=== PATIENT | female | born 1960 | race Caucasian/White ===

== ENCOUNTER → 2020-07-08 13:29 | Outpatient (BNVA) | payer MEDICAID, SELFPAY | PROVIDERS: PCP Internal Medicine; Visit Provider Nurse Practitioner ==

== ENCOUNTER 2020-07-17 09:14 | Emergency (ER) | payer MEDICAID, SELFPAY ==
--- NOTE | ~2020-07-17 | XR_ITS ---
EXAMINATION: XR CHEST CLINICAL INFORMATION: Chest pain. COMPARISON: None TECHNIQUE: Frontal view of the chest was obtained. FINDINGS: The lungs are well-expanded and clear of acute pneumonic process. The heart size and pulmonary vascularity is normal. No gross bony abnormality seen. XR/XR chest 1V IMPRESSION: Unremarkable chest exam.
--- NOTE | 2020-07-17 09:21 | ECG_ITS ---
Test Reason : CHEST PAIN Blood Pressure : / mmHG Vent. Rate : 079 BPM Atrial Rate : 079 BPM P-R Int : 180 ms QRS Dur : 114 ms QT Int : 348 ms P-R-T Axes : 048 -36 065 degrees QTc Int : 399 ms Normal sinus rhythm Left axis deviation Incomplete left bundle branch block Nonspecific T wave abnormality Abnormal ECG When compared with ECG of 21-FEB-2017 11:54, Nonspecific T wave abnormality no longer evident in Inferior leads Nonspecific T wave abnormality no longer evident in Anterior leads Referred By: Nancy Maldonado Electronically Signed By:MINO PALAFOX
--- NOTE | 2020-07-17 09:23 | ED.CHESTPAIN ---
HPI - Chest Pain General Chief Complaint: Chest Pain Stated Complaint: CHEST PAIN COVID POS Time Seen by Provider: 07/17/20 09:20 Source: patient Mode of arrival: ambulatory Limitations: no limitations History of Present Illness HPI narrative: 59 yo female with history of GERD, asthma, HTN, HLD, arthritis constipation and COVID-19 in May 2020 presents with ongoing chest pain and shortness of breath since her diagnosis. She states the pain has been in her entire chest and has been constant. It is non-radiating and worse with palpation. She has been taking Tylenol with some temporary relief. She reports ongoing dry cough since May. She also reports SOB and ZACARIAS since May. She has had an O2 monitor at home and her saturation has not gone lower than 96%. She has not had any recent fevers, chills. No N/V/D or abdominal pain. MD complaint: chest pain Pertinent past history: asthma Onset (ago): week(s) (6) Timing of current episode: constant Prior episodes: Yes Onset: during rest and during exertion Pain location: substernal, left chest and right chest Pain radiation: none Severity: moderate Quality: tightness Relieving factors: medication-other Exacerbating factors: exertion Context: recent illness Associated symptoms: cough Treatment prior to arrival: none Risk Factors Coronary artery disease risk factors: hyperlipidemia and hypertension Thoracic aortic dissection risk factors: none Related Data On Oral Contraceptives: No Home Medications Medication Instructions Recorded Confirmed acetaminophen 650 mg 650 mg PO Q12H 07/08/20 tablet,extended release docusate sodium 100 mg capsule 100 mg PO DAILY 07/08/20 Previous Rx's Medication Instructions Recorded lisinopril 2.5 mg tablet 2.5 mg PO DAILY #30 tab 03/11/20 cholecalciferol (vitamin D3) 50 50 mcg PO DAILY #30 tab 04/13/20 mcg (2,000 unit) tablet dexlansoprazole 60 mg 60 mg PO DAILY 30 Days #30 cap 07/08/20 capsule,biphase delayed release albuterol sulfate 1 inh INHALATION QID PRN #6.7 g 07/17/20 benzonatate [Tessalon Perles] 100 mg PO TID PRN #20 cap 07/17/20 Allergies Allergy/AdvReac Type Severity Reaction Status Date / Time Penicillins [PENICILLINS] Allergy Intermediate RASH Verified 07/08/20 13:32 Hydrocodone-Acetaminophen Allergy Unknown tachycardia Uncoded 11/14/18 00:00 narcotics AdvReac Mild heart Uncoded 07/08/20 13:32 palpitations Review of Systems Review of Systems: Constitutional: No Fever, No Chills ENT/Mouth: No sore throat, No Rhinorrhea, No Swallowing Difficulty Cardiovascular: + Chest Pain, + SOB, No Orthopnea, No Edema Respiratory: + Cough, No Sputum, No Wheezing, + dyspnea Gastrointestinal: No Nausea, No Vomiting, No Diarrhea, No abdominal Pain Genitourinary: No Dysuria, No Urinary Frequency, No Hematuria Musculoskeletal: + joint pain (chronic knees), No Myalgias Skin: No Skin Lesions, No rash Neuro: No Weakness, No Numbness, No Dizziness, No Headache Psych: No Anxiety/Panic, No Depression Heme/Lymph: No Bruising, No Lymphadenopathy Endocrine: No Polyuria, No Polydipsia PMF Past Medical History Attestation statement: The following information was validated with the patient. Medical History Arthritis High cholesterol HTN (hypertension) Surgical History (Updated 07/08/20 @ 13:40 by JEANA Lees) Hx of colonoscopy (~2019) Family History Family History (Updated 07/08/20 @ 13:40 by JEANA Lees) Mother HTN (hypertension) Diabetes Social History Social History (Updated 07/08/20 @ 13:41 by JEANA Lees) Alcohol intake: current Alcohol intake frequency: does not drink Smoking Status: Never smoker Advance Directives: No Advance Directives Information Provided: No Physical Exam Vital Signs: Vital Signs: Last Vital Signs Temp 98.1 F 07/17/20 09:26 Pulse 76 07/17/20 09:26 BP 130/53 L 07/17/20 09:26 Pulse Ox 100 07/17/20 09:26 Body Mass Index 24.2 Appearance: Alert. Oriented X3. No acute distress. Eyes: Pupils equal, round and reactive to light. ENT: Pharynx normal. Neck: Normal inspection. Neck supple. CVS: Normal heart rate and rhythm. Pulses normal. Anterior chest wall tender throughout. Respiratory: No respiratory distress. Breath sounds normal. Abdomen: Soft and nontender. +BS x4 Skin: Skin warm and dry. Normal skin color. Normal skin turgor. No rashes. Extremities: No lower extremity edema. Negative Taj's sign. Neuro: Oriented X 3. No motor deficit. No sensory deficit. Course Course Course Narrative: 59 y/o female presenting with ongoing chest pain and SOB since she was diagnosed with COVID over 6 weeks ago. Her exam is reassuring and her VS are normal. Will need to r/o ACS and PE in the setting of recent COVID. Will get EKG, CXR, labs including troponin and ddimer. Reevaluation(s) Reevaluation #1: Work up is negative. Low suspicion for life threatening causes of her pain and SOB. DDIMER and troponin negative. VS are stable and lungs are clear. Chest is tender consistent with muscular pain. It is possible that her symptoms are side effects of COVID-19. It is recommended she follow up with her doctor for further management. MDM - Chest Pain Differential Diagnosis Differential diagnosis: Likely pneumothorax, stable angina, unstable angina pectoris, atypical chest pain, st elevation myocardial infarction, costochondritis, chest pain and biliary colic Medical Records Data Attestation: I reviewed the patient's medical records. Lab Data Attestation: I reviewed the patient's lab results. Result diagrams: 07/17/20 09:42 07/17/20 09:42 Labs: Lab Results 07/17/20 07/17/20 07/17/20 Range/Units 09:42 09:42 09:42 WBC 4.8 (4.8-10.8) X10*3/uL RBC 4.34 (4.20-5.50) X10*6/uL Hgb 11.7 L (12.0-16.0) g/dl Hct 37.9 (37-47) % MCV 87.3 (80-98) fL MCH 27.0 (27.0-33.0) pg MCHC 30.9 L (31.0-35.0) g/dl RDW 14.5 (11.0-16.0) % Plt Count 187 (160-400) X10*3/uL MPV 12.6 H (9.4-12.3) fL Immature Gran % (Auto) 0.2 (0.0-0.4) % Neut % (Auto) 52.7 (45-73) % Lymph % (Auto) 34.1 (20-40) % [place] % (Auto) 10.7 (2-11) % Eos % (Auto) 2.1 (0-4) % Baso % (Auto) 0.2 (0-2) % Lymph # (Auto) 1.6 (1.2-4.9) X10*3/uL [place] # (Auto) 0.5 (0.1-1.2) X10*3/uL Eos # (Auto) 0.1 (0.0-0.4) X10*3/uL Baso # (Auto) 0.0 (0.0-0.2) X10*3/uL Abs Immat Gran (auto) 0.01 (0.00-0.03) X10*3/uL Absolute Neuts (auto) 2.5 (2.0-8.3) X10*3/uL Absolute Nucleated RBC 0.000 (0.0-0.012) X10*3/uL Nucleated RBC % (auto) 0.0 (0.0-0.2) /100WBC PT 11.9 (10.8-13.0) SEC INR 1.0 (0.9-1.1) APTT 29.4 (24.1-38.0) SEC D-Dimer < 200 NG/ML Sodium 142 (135-145) mmol/L Potassium 3.9 (3.3-5.1) mmol/L Chloride 103 (96-108) mmol/L Carbon Dioxide 31 H (22-29) mmol/L Anion Gap 12 (12-20) BUN 25 H (9-16) mg/dL Creatinine 1.06 (0.5-1.4) mg/dL Estim Creat Clear Calc 52.8 Estimated GFR 53 Random Glucose 118 H (60-115) mg/dL Calcium 9.5 (8.4-10.2) mg/dL Magnesium 2.1 (1.6-2.6) mg/dL Total Bilirubin 0.5 (0.0-1.0) mg/dL Direct Bilirubin 0.2 (0.0-0.5) mg/dL AST 14 (5-31) U/L ALT 19 (0-31) U/L Alkaline Phosphatase 53 (39-117) U/L Troponin I High Sens (<3.5-17.0) ng/L C-Reactive Protein 0.08 (< or = 0.50) mg/dL B-Natriuretic Peptide (<100) pg/mL Total Protein 7.5 (6.5-8.0) g/dL Albumin 4.3 (3.5-5.0) g/dL Procalcitonin ng/mL Urine Color Urine Appearance Urine pH (5.0-8.0) Ur Specific [place] (1.005-1.025) Urine Protein (NEG-TRACE) MG/DL Urine Glucose (UA) (NEG) MG/DL Urine Ketones (NEG) MG/DL Urine Blood (NEG) Urine Nitrite (NEG) Ur Leukocyte Esterase (NEG) 07/17/20 07/17/20 07/17/20 Range/Units 09:42 09:42 10:29 WBC (4.8-10.8) X10*3/uL RBC (4.20-5.50) X10*6/uL Hgb (12.0-16.0) g/dl Hct (37-47) % MCV (80-98) fL MCH (27.0-33.0) pg MCHC (31.0-35.0) g/dl RDW (11.0-16.0) % Plt Count (160-400) X10*3/uL MPV (9.4-12.3) fL Immature Gran % (Auto) (0.0-0.4) % Neut % (Auto) (45-73) % Lymph % (Auto) (20-40) % [place] % (Auto) (2-11) % Eos % (Auto) (0-4) % Baso % (Auto) (0-2) % Lymph # (Auto) (1.2-4.9) X10*3/uL [place] # (Auto) (0.1-1.2) X10*3/uL Eos # (Auto) (0.0-0.4) X10*3/uL Baso # (Auto) (0.0-0.2) X10*3/uL Abs Immat Gran (auto) (0.00-0.03) X10*3/uL Absolute Neuts (auto) (2.0-8.3) X10*3/uL Absolute Nucleated RBC (0.0-0.012) X10*3/uL Nucleated RBC % (auto) (0.0-0.2) /100WBC PT (10.8-13.0) SEC INR (0.9-1.1) APTT (24.1-38.0) SEC D-Dimer NG/ML Sodium (135-145) mmol/L Potassium (3.3-5.1) mmol/L Chloride (96-108) mmol/L Carbon Dioxide (22-29) mmol/L Anion Gap (12-20) BUN (9-16) mg/dL Creatinine (0.5-1.4) mg/dL Estim Creat Clear Calc Estimated GFR Random Glucose (60-115) mg/dL Calcium (8.4-10.2) mg/dL Magnesium (1.6-2.6) mg/dL Total Bilirubin (0.0-1.0) mg/dL Direct Bilirubin (0.0-0.5) mg/dL AST (5-31) U/L ALT (0-31) U/L Alkaline Phosphatase (39-117) U/L Troponin I High Sens < 3.5 (<3.5-17.0) ng/L C-Reactive Protein (< or = 0.50) mg/dL B-Natriuretic Peptide < 10 (<100) pg/mL Total Protein (6.5-8.0) g/dL Albumin (3.5-5.0) g/dL Procalcitonin < 0.02 ng/mL Urine Color YELLOW Urine Appearance CLEAR Urine pH 6.0 (5.0-8.0) Ur Specific [place] 1.025 (1.005-1.025) Urine Protein NEG (NEG-TRACE) MG/DL Urine Glucose (UA) NEG (NEG) MG/DL Urine Ketones NEG (NEG) MG/DL Urine Blood NEG (NEG) Urine Nitrite NEG (NEG) Ur Leukocyte Esterase NEG (NEG) ECG Data ECG #1: Attestation: I personally reviewed and interpreted this ECG as follows: ECG interpretation date: 07/17/20 ECG interpretation time: 09:45 Interpretation: normal sinus rhythm, HR 79 bpm, normal SC interval, normal QTc, nonspecific T wave abnormality, no ST segment elevations or depression,s Scores Heart Score History: -0- slightly suspicious ECG: -0- normal Age: -1- >45 - <65 Risk factory: -1- 1 or 2 risk factors Troponin: -0- < or = normal limit Score: 2 Risk: 1.7% Critical Care Time Critical Care Time Critical Care Time: No Discharge Plan Discharge Clinical Impression: Atypical chest pain Patient Disposition: Home, Self-Care Instructions: Chest Pain (ED), Costochondritis (ED) Additional Instructions: Your workup today was negative. Life threatening causes of chest pain and shortness of breath have been ruled out. It is likely that your symptoms are custodial effects of COVID-19. Take the prescribed medication as needed for cough. Recommend over the counter cough syrup as well. Recommend follow up with your doctor. Recommend continuing Tylenol as needed for discomfort. You can add an anti-inflammatory such as Ibuprofen or Advil for pain. If your symptoms worsen come back to the ER for further evaluation. Prescriptions: New benzonatate [Tessalon Perles] 100 mg capsule 100 mg PO TID PRN (Reason: cough) Qty: 20 RF: 0 albuterol sulfate 90 mcg/actuation HFA aerosol inhaler 1 inh inhalation QID PRN (Reason: shortness of breath or wheezing) Qty: 6.7 RF: 0 No Action lisinopril 2.5 mg tablet 2.5 mg PO DAILY Qty: 30 RF: 3 cholecalciferol (vitamin D3) 50 mcg (2,000 unit) tablet 50 mcg PO DAILY Qty: 30 RF: 11 Dexilant 60 mg capsule,biphase delayed releas 60 mg PO DAILY 30 Days Qty: 30 RF: 6
[2020-07-17 09:26] VITALS: BP 130/53; PULSE 76; TEMP 36.7; O2SAT 100; BMI 24.2
[2020-07-17 09:48] LABS: MANUAL DIFF FLAG NO
[2020-07-17 09:52] LABS: Basophils Percent Auto 0.2 % (0-2); Eosinophils Absolute Auto 0.1 X10*3/uL (0.0-0.4); Eosinophils Percent Auto 2.1 % (0-4); Hematocrit 37.9 % (37-47); Hemoglobin 11.7 g/dl (12.0-16.0); Imm Gran Abs Auto 0.01 X10*3/uL (0.00-0.03); Imm Gran Pct Auto 0.2 % (0.0-0.4); Lymphocytes Absolute Auto 1.6 X10*3/uL (1.2-4.9); Lymphocytes Percent Auto 34.1 % (20-40); Mean Corpuscular HGB Conc 30.9 g/dl (31.0-35.0); Mean Corpuscular Volume 87.3 fL (80-98); Mean Platelet Volume 12.6 fL (9.4-12.3); Monocytes Absolute Auto 0.5 X10*3/uL (0.1-1.2); Monocytes Percent Auto 10.7 % (2-11); Neutrophils Absolute Auto 2.5 X10*3/uL (2.0-8.3); Neutrophils Percent Auto 52.7 % (45-73); Platelet Count 187 X10*3/uL (160-400); Red Blood Count 4.34 X10*6/uL (4.20-5.50); Red Cell Distribution Width 14.5 % (11.0-16.0); White Blood Count 4.8 X10*3/uL (4.8-10.8)
[2020-07-17 09:58] LABS: Prothrombin Time 11.9 SEC (10.8-13.0)
[2020-07-17 10:00] LABS: Partial Thromboplastin Time 29.4 SEC (24.1-38.0)
[2020-07-17 10:11] LABS: D Dimer < 200 NG/ML
[2020-07-17 10:19] LABS: Alanine Aminotransferase 19 U/L (0-31); Albumin Level 4.3 g/dL (3.5-5.0); Alkaline Phosphatase 53 U/L (39-117); Anion Gap 12 (12-20); Aspartate Amino Transferase 14 U/L (5-31); Bilirubin Direct 0.2 mg/dL (0.0-0.5); Bilirubin Total 0.5 mg/dL (0.0-1.0); Blood Urea Nitrogen 25 mg/dL (9-16); C Reactive Protein 0.08 mg/dL (< or = 0.50); Calcium 9.5 mg/dL (8.4-10.2); Carbon Dioxide 31 mmol/L (22-29); Chloride 103 mmol/L (96-108); Creatinine Clr Calc Pharmacy 52.8; Estimated Glomerular Filt Rate 53; Glucose Random 118 mg/dL (60-115); Magnesium 2.1 mg/dL (1.6-2.6); Potassium 3.9 mmol/L (3.3-5.1); Sodium 142 mmol/L (135-145); Total Protein 7.5 g/dL (6.5-8.0)
[2020-07-17 10:22] LABS: B Type Natriuretic Peptide < 10 pg/mL (<100); Troponin-I High Sensitivity < 3.5 ng/L (<3.5-17.0)
[2020-07-17 10:36] LABS: Procalcitonin < 0.02 ng/mL
[2020-07-17 10:42] LABS: Glucose Urine UA NEG (NEG); Leukocyte Esterase Urine NEG (NEG); Nitrite Urine NEG (NEG); Specific Gravity - Urine 1.025 (1.005-1.025); Urine Blood NEG (NEG); Urine Ketones NEG (NEG); Urine Protein NEG (NEG-TRACE)
[2020-07-17 10:43] LABS: Appearance Urine CLEAR; Color Urine YELLOW
== END 2020-07-17 10:53 | disposition home or self-care (01) ==
PROVIDERS: Physician Assistant; Emergency Provider Emergency Medicine; PCP Internal Medicine
DX: R07.89 Other chest pain (principal); I10 Essential (primary) hypertension; E78.5 Hyperlipidemia, unspecified; K21.9 Gastro-esophageal reflux disease without esophagitis; Z86.16 Personal history of COVID-19
CPT/HCPCS: 36415; 71045; 80048; 80076; 81003; 83735; 83880; 84145; 84484; 85025; 85379; 85610; 85730; 86140; 93005; 99283

== ENCOUNTER → 2020-08-05 12:22 | Outpatient (BNVA) | payer MEDICAID, SELFPAY | PROVIDERS: PCP Internal Medicine; Visit Provider Nurse Practitioner ==

== ENCOUNTER 2020-10-22 09:09 | Outpatient (REF) | payer MEDICAID, SELFPAY ==
--- NOTE | ~2020-10-22 | US_ITS ---
EXAMINATION: PELVIC ULTRASOUND CLINICAL INFORMATION: Right lower quadrant pain. Post hysterectomy. COMPARISON: Previous CT of the abdomen and pelvis November 2015 and previous pelvic ultrasound most recent April 2015 TECHNIQUE: Transabdominal pelvic ultrasound was performed. FINDINGS: The uterus has been removed. The ovaries are not identified. No pelvic mass or ascites is seen. US/US pelvic and transvaginal IMPRESSION: Post hysterectomy. Ovaries not seen. No pelvic mass or ascites is seen.
--- NOTE | ~2020-10-22 | US_ITS ---
EXAMINATION: US ABDOMEN COMPLETE CLINICAL INFORMATION: Right lower quadrant pain. COMPARISON: CT abdomen and pelvis 12/10/2015. X-ray abdomen KUB 09/09/2013. Renal ultrasound 06/14/2013. TECHNIQUE: Real-time imaging of the abdominal viscera. FINDINGS: PANCREAS: Normal. ABDOMINAL AORTA: The proximal, mid, and distal segments are normal in caliber. INFERIOR VENA CAVA: Visualized portions are normal. LIVER: The liver is normal in size. The liver contour is normal. Parenchymal echogenicity is normal. No focal hepatic lesion. There is no intrahepatic biliary duct dilatation seen. GALLBLADDER: Surgically absent. COMMON BILE DUCT: Normal in caliber measuring 0.6 cm in diameter. RIGHT KIDNEY: No hydronephrosis. No renal calculi or focal parenchymal lesions. The kidney measures 10.9 cm in maximum dimension. LEFT KIDNEY: No hydronephrosis. No renal calculi or focal parenchymal lesions. The kidney measures 10.3 cm in maximum dimension. SPLEEN: Normal. The spleen measures 7.9 cm in maximum dimension. FREE FLUID: None. US/US abdomen complete IMPRESSION: No significant abnormality is seen
== END 2020-10-22 09:10 | disposition home or self-care (01) ==
LOC: HO.US 09:09
PROVIDERS: Visit Provider Emergency Medicine
DX: K59.04 Chronic idiopathic constipation (principal); R10.31 Right lower quadrant pain
CPT/HCPCS: 76700; 76830; 76856

== ENCOUNTER 2020-10-30 10:49 | Emergency (ER) | payer MEDICAID, SELFPAY ==
[2020-10-30] VITALS (7 sets, daily range): BP systolic 116–138; BP diastolic 48–66; PULSE 54–69; RESP 13–19; TEMP 36.7–37; O2SAT 98–100; BMI 23.5
--- NOTE | ~2020-10-30 | XR_ITS ---
EXAMINATION: XR CHEST CLINICAL INFORMATION: Chest pain COMPARISON: Chest 07/17/2020 TECHNIQUE: Frontal view of the chest was obtained. FINDINGS: No significant abnormality is noted involving the heart, lungs, mediastinum, bony thorax or soft tissues. XR/XR chest 1V IMPRESSION: Unremarkable chest exam.
--- NOTE | 2020-10-30 11:25 | ECG_ITS ---
Test Reason : CHEST PAIN Blood Pressure : / mmHG Vent. Rate : 057 BPM Atrial Rate : 057 BPM P-R Int : 192 ms QRS Dur : 106 ms QT Int : 412 ms P-R-T Axes : 015 -36 -16 degrees QTc Int : 401 ms Sinus bradycardia Left axis deviation Incomplete left bundle branch block Nonspecific T wave abnormality Abnormal ECG When compared with ECG of 17-JUL-2020 09:25, Nonspecific T wave abnormality now evident in Inferior leads Nonspecific T wave abnormality now evident in Anterior leads Referred By: Carmen Moreno Electronically Signed By:MINO PALAFOX
--- NOTE | 2020-10-30 11:27 | ED.CHESTPAIN ---
HPI - Chest Pain General Chief Complaint: Chest Pain Stated Complaint: leg pain, chest pain, asthma Time Seen by Provider: 10/30/20 11:03 Source: patient Mode of arrival: ambulatory Limitations: no limitations History of Present Illness HPI narrative: Patient comes emergency room complaining frequent asthma exacerbations, chest pain for 2 days. Patient states that she has been taking multiple nebulization treatments at home for asthma. At this time, patient states she is not short of breath. Patient states that she has a constant achy substernal chest pain that started 2 days ago. Patient states it is there all the time, unchanged. Patient denies diaphoresis, states that sometimes she feels that she walks unsteady, but this time she feels normal. MD complaint: chest pain Related Data Home Medications Medication Instructions Recorded Confirmed acetaminophen 650 mg 650 mg PO Q12H 07/08/20 tablet,extended release guaifenesin 100 mg/5 mL oral liquid 200 mg PO Q4H PRN 08/05/20 Previous Rx's Medication Instructions Recorded lisinopril 2.5 mg tablet 2.5 mg PO DAILY #30 tab 03/11/20 cholecalciferol (vitamin D3) 50 50 mcg PO DAILY #30 tab 04/13/20 mcg (2,000 unit) tablet dexlansoprazole 60 mg 60 mg PO DAILY 30 Days #30 cap 07/08/20 capsule,biphase delayed release albuterol sulfate 1 inh INHALATION QID PRN #6.7 g 07/17/20 benzonatate [Tessalon Perles] 100 mg PO TID PRN #20 cap 07/17/20 docusate sodium 100 mg capsule 100 mg PO DAILY 30 Days #30 cap 08/05/20 Allergies Allergy/AdvReac Type Severity Reaction Status Date / Time Penicillins [PENICILLINS] Allergy Intermediate RASH Verified 08/05/20 12:23 Hydrocodone-Acetaminophen Allergy Unknown tachycardia Uncoded 11/14/18 00:00 narcotics AdvReac Mild heart Uncoded 07/08/20 13:32 palpitations Review of Systems Review of Systems: Constitutional : No Weight loss, No Fever, No Chills, No Night Sweats, No Fatigue, No Malaise ENT/Mouth : No Hearing loss, No Ear Pain, No Nasal Congestion, No Sinus Pain, No Hoarseness, No sore throat, No Rhinorrhea, No Swallowing Difficulty Eyes: No Eye Pain, No Swelling, No Redness, No Foreign Body, No Discharge, No Vision Changes Cardiovascular : Complaining of achy substernal chest pain for 2 days, constant. No Dyspnea on Exertion, No Orthopnea, No Edema, No Palpitations Respiratory : No Cough, No Sputum, intermittent Wheezing the response to albuterol treatments, No Smoke Exposure, No Dyspnea Gastrointestinal : No Nausea, No Vomiting, No Diarrhea, No Constipation, No abdominal Pain, No Hematochezia, No Melena Genitourinary : no irregular bleeding, No Dysuria, No Urinary Frequency, No Hematuria, No Urinary Incontinence, No Urgency, No Flank Pain, No Urinary Flow Changes, No Hesitancy Musculoskeletal : Chronic bilateral knee pain, No Myalgias, No Joint Swelling Skin : No Skin Lesions, No rash Neuro : No Weakness, No Numbness, No Paresthesias, No Loss of Consciousness, No Dizziness, No Headache Psych : No Anxiety/Panic, No Depression, No SI/HI/AH/VH, No Social Issues, Heme/Lymph: No Bruising, No Bleeding,No Lymphadenopathy Endocrine : No Polyuria, No Polydipsia, No Temperature Intolerance [facility] Past Medical History Medical History Arthritis High cholesterol HTN (hypertension) Surgical History Hx of colonoscopy (~2019) Family History Family History (Updated 07/08/20 @ 13:40 by JEANA Lees) Mother HTN (hypertension) Diabetes Social History Social History (Updated 08/05/20 @ 12:28 by JEANA Lees) Alcohol intake: current Alcohol intake frequency: does not drink Advance Directives: No Advance Directives Information Provided: No Patient : No Physical Exam Vital Signs: Vital Signs: Last Vital Signs Temp 98.0 F 10/30/20 14:59 Pulse 54 10/30/20 14:59 Resp 18 10/30/20 14:59 BP 134/48 L 10/30/20 14:59 Pulse Ox 100 10/30/20 14:59 Body Mass Index 23.5 Appearance: Alert. Oriented X3. No acute distress. Eyes: Pupils equal, round and reactive to light. ENT: Pharynx normal. Neck: Normal inspection. Neck supple. No lymph nodes noted. No crepitus CVS: Normal heart rate and rhythm. Pulses normal. Normal S1 and S2 Respiratory: No respiratory distress. Breath sounds normal. No Wheezing. No rales Abdomen: Soft and nontender. No rigidity. No distention. good BS x4 Skin: Skin warm and dry. Normal skin color. Normal skin turgor. Extremities: No lower extremity edema. No rash Neuro: Oriented X 3. No motor deficit. No sensory deficit. Moving all extermities. No slurred speech. Course Course Course Narrative: I discussed the results with the patient, her troponin remained stable, did not increase from troponin 1. Repeated EKG 2. Shows no changes. Patient states that this time she has no chest pain. Patient will follow-up with her primary care physician. MDM - Chest Pain Lab Data Result diagrams: 10/30/20 11:46 10/30/20 11:46 Labs: Lab Results 10/30/20 10/30/20 10/30/20 Range/Units 11:46 11:46 11:46 WBC 4.0 L (4.8-10.8) X10*3/uL RBC 4.06 L (4.20-5.50) X10*6/uL Hgb 11.2 L (12.0-16.0) g/dl Hct 35.9 L (37-47) % MCV 88.4 (80-98) fL MCH 27.6 (27.0-33.0) pg MCHC 31.2 (31.0-35.0) g/dl RDW 13.5 (11.0-16.0) % Plt Count 166 (160-400) X10*3/uL MPV 12.8 H (9.4-12.3) fL Immature Gran % (Auto) 0.0 (0.0-0.4) % Neut % (Auto) 62.4 (45-73) % Lymph % (Auto) 28.5 (20-40) % [place] % (Auto) 6.9 (2-11) % Eos % (Auto) 2.0 (0-4) % Baso % (Auto) 0.2 (0-2) % Lymph # (Auto) 1.2 (1.2-4.9) X10*3/uL [place] # (Auto) 0.3 (0.1-1.2) X10*3/uL Eos # (Auto) 0.1 (0.0-0.4) X10*3/uL Baso # (Auto) 0.0 (0.0-0.2) X10*3/uL Abs Immat Gran (auto) 0.00 (0.00-0.03) X10*3/uL Absolute Neuts (auto) 2.5 (2.0-8.3) X10*3/uL Absolute Nucleated RBC 0.000 (0.0-0.012) X10*3/uL Nucleated RBC % (auto) 0.0 (0.0-0.2) /100WBC Sodium 142 (135-145) mmol/L Potassium 4.3 (3.3-5.1) mmol/L Chloride 107 (96-108) mmol/L Carbon Dioxide 29 (22-29) mmol/L Anion Gap 10 L (12-20) BUN 15 (9-16) mg/dL Creatinine 0.79 (0.5-1.4) mg/dL Estim Creat Clear Calc 72.7 Estimated GFR > 60 Random Glucose 101 (60-115) mg/dL Calcium 9.4 (8.4-10.2) mg/dL Total Bilirubin 0.4 (0.0-1.0) mg/dL Direct Bilirubin 0.2 (0.0-0.5) mg/dL AST 19 (5-31) U/L ALT 19 (0-31) U/L Alkaline Phosphatase 49 (39-117) U/L Troponin I High Sens 6.2 (<3.5-17.0) ng/L B-Natriuretic Peptide 59 (<100) pg/mL Total Protein 6.9 (6.5-8.0) g/dL Albumin 4.0 (3.5-5.0) g/dL Urine Color Urine Appearance Urine pH (5.0-8.0) Ur Specific [place] (1.005-1.025) Urine Protein (NEG-TRACE) MG/DL Urine Glucose (UA) (NEG) MG/DL Urine Ketones (NEG) MG/DL Urine Blood (NEG) Urine Nitrite (NEG) Ur Leukocyte Esterase (NEG) 10/30/20 10/30/20 Range/Units 14:54 14:54 WBC (4.8-10.8) X10*3/uL RBC (4.20-5.50) X10*6/uL Hgb (12.0-16.0) g/dl Hct (37-47) % MCV (80-98) fL MCH (27.0-33.0) pg MCHC (31.0-35.0) g/dl RDW (11.0-16.0) % Plt Count (160-400) X10*3/uL MPV (9.4-12.3) fL Immature Gran % (Auto) (0.0-0.4) % Neut % (Auto) (45-73) % Lymph % (Auto) (20-40) % [place] % (Auto) (2-11) % Eos % (Auto) (0-4) % Baso % (Auto) (0-2) % Lymph # (Auto) (1.2-4.9) X10*3/uL [place] # (Auto) (0.1-1.2) X10*3/uL Eos # (Auto) (0.0-0.4) X10*3/uL Baso # (Auto) (0.0-0.2) X10*3/uL Abs Immat Gran (auto) (0.00-0.03) X10*3/uL Absolute Neuts (auto) (2.0-8.3) X10*3/uL Absolute Nucleated RBC (0.0-0.012) X10*3/uL Nucleated RBC % (auto) (0.0-0.2) /100WBC Sodium (135-145) mmol/L Potassium (3.3-5.1) mmol/L Chloride (96-108) mmol/L Carbon Dioxide (22-29) mmol/L Anion Gap (12-20) BUN (9-16) mg/dL Creatinine (0.5-1.4) mg/dL Estim Creat Clear Calc Estimated GFR Random Glucose (60-115) mg/dL Calcium (8.4-10.2) mg/dL Total Bilirubin (0.0-1.0) mg/dL Direct Bilirubin (0.0-0.5) mg/dL AST (5-31) U/L ALT (0-31) U/L Alkaline Phosphatase (39-117) U/L Troponin I High Sens 6.0 (<3.5-17.0) ng/L B-Natriuretic Peptide (<100) pg/mL Total Protein (6.5-8.0) g/dL Albumin (3.5-5.0) g/dL Urine Color YELLOW Urine Appearance CLEAR Urine pH 7.5 (5.0-8.0) Ur Specific [place] 1.015 (1.005-1.025) Urine Protein NEG (NEG-TRACE) MG/DL Urine Glucose (UA) NEG (NEG) MG/DL Urine Ketones NEG (NEG) MG/DL Urine Blood NEG (NEG) Urine Nitrite NEG (NEG) Ur Leukocyte Esterase NEG (NEG) Imaging Data Chest x-ray: Radiologist's impression: No significant abnormality is noted involving the heart, lungs, mediastinum, bony thorax or soft tissues. XR/XR chest 1V IMPRESSION: Unremarkable chest exam. ECG Data ECG #1: Attestation: I personally reviewed and interpreted this ECG as follows: (Heart rate 57, sinus bradycardia, nonspecific T-wave abnormalities in leads V3 through V6, incomplete left bundle branch block, QTC 401) ECG #2: Attestation: I personally reviewed and interpreted this ECG as follows: (Heart rate 60, sinus rhythm, no ST segment depression or elevation, nonspecific T-wave abnormality, QTC 400. ) Discharge Plan Discharge Clinical Impression: Atypical chest pain Patient Disposition: Home, Self-Care Instructions: Chest Pain (ED) Additional Instructions: Please follow-up with your primary care physician tomorrow. If you have any worsening or new symptoms, please return to the emergency room or call 911 Prescriptions: No Action lisinopril 2.5 mg tablet 2.5 mg PO DAILY Qty: 30 RF: 3 cholecalciferol (vitamin D3) 50 mcg (2,000 unit) tablet 50 mcg PO DAILY Qty: 30 RF: 11 benzonatate [Tessalon Perles] 100 mg capsule 100 mg PO TID PRN (Reason: cough) Qty: 20 RF: 0 albuterol sulfate 90 mcg/actuation HFA aerosol inhaler 1 inh inhalation QID PRN (Reason: shortness of breath or wheezing) Qty: 6.7 RF: 0 Dexilant 60 mg capsule,biphase delayed releas 60 mg PO DAILY 30 Days Qty: 30 RF: 6 docusate sodium [Colace] 100 mg capsule 100 mg PO DAILY 30 Days Qty: 30 RF: 6
[2020-10-30] MEDS: Aspirin Enteric Coated 325 MG TABLET.DR PO (11:36)
[2020-10-30 11:51] LABS: MANUAL DIFF FLAG NO
[2020-10-30 11:54] LABS: Basophils Percent Auto 0.2 % (0-2); Eosinophils Absolute Auto 0.1 X10*3/uL (0.0-0.4); Hematocrit 35.9 % (37-47); Hemoglobin 11.2 g/dl (12.0-16.0); Lymphocytes Absolute Auto 1.2 X10*3/uL (1.2-4.9); Lymphocytes Percent Auto 28.5 % (20-40); Mean Corpuscular HGB Conc 31.2 g/dl (31.0-35.0); Mean Corpuscular Hemoglobin 27.6 pg (27.0-33.0); Mean Corpuscular Volume 88.4 fL (80-98); Mean Platelet Volume 12.8 fL (9.4-12.3); Monocytes Absolute Auto 0.3 X10*3/uL (0.1-1.2); Monocytes Percent Auto 6.9 % (2-11); Neutrophils Absolute Auto 2.5 X10*3/uL (2.0-8.3); Neutrophils Percent Auto 62.4 % (45-73); Platelet Count 166 X10*3/uL (160-400); Red Blood Count 4.06 X10*6/uL (4.20-5.50); Red Cell Distribution Width 13.5 % (11.0-16.0)
[2020-10-30 12:16] LABS: Alanine Aminotransferase 19 U/L (0-31); Alkaline Phosphatase 49 U/L (39-117); Anion Gap 10 (12-20); Aspartate Amino Transferase 19 U/L (5-31); Bilirubin Direct 0.2 mg/dL (0.0-0.5); Bilirubin Total 0.4 mg/dL (0.0-1.0); Blood Urea Nitrogen 15 mg/dL (9-16); Calcium 9.4 mg/dL (8.4-10.2); Carbon Dioxide 29 mmol/L (22-29); Chloride 107 mmol/L (96-108); Creatinine Clr Calc Pharmacy 72.7; Estimated Glomerular Filt Rate > 60; Glucose Random 101 mg/dL (60-115); Potassium 4.3 mmol/L (3.3-5.1); Sodium 142 mmol/L (135-145); Total Protein 6.9 g/dL (6.5-8.0)
[2020-10-30 12:22] LABS: B Type Natriuretic Peptide 59 pg/mL (<100); Troponin-I High Sensitivity 6.2 ng/L (<3.5-17.0)
--- NOTE | 2020-10-30 12:35 | ECG_ITS ---
Test Reason : REPEAT Blood Pressure : / mmHG Vent. Rate : 060 BPM Atrial Rate : 060 BPM P-R Int : 190 ms QRS Dur : 108 ms QT Int : 400 ms P-R-T Axes : 023 -34 060 degrees QTc Int : 400 ms Normal sinus rhythm Left axis deviation Nonspecific T wave abnormality Abnormal ECG When compared with ECG of 30-OCT-2020 11:30, No significant change was found Referred By: Carmen Moreno Electronically Signed By:MINO PALAFOX
[2020-10-30 15:08] LABS: Glucose Urine UA NEG (NEG); Leukocyte Esterase Urine NEG (NEG); Nitrite Urine NEG (NEG); PH 7.5 (5.0-8.0); Specific Gravity - Urine 1.015 (1.005-1.025); Urine Blood NEG (NEG); Urine Ketones NEG (NEG); Urine Protein NEG (NEG-TRACE)
[2020-10-30 15:09] LABS: Appearance Urine CLEAR; Color Urine YELLOW
== END 2020-10-30 17:06 | disposition home or self-care (01) ==
PROVIDERS: Emergency Provider Emergency Medicine
DX: R07.89 Other chest pain (principal); I10 Essential (primary) hypertension; J45.909 Unspecified asthma, uncomplicated; Z79.899 Other long term (current) drug therapy
CPT/HCPCS: 36415; 71045; 80048; 80076; 81003; 83880; 84484; 85025; 93005; 99284

== ENCOUNTER 2020-11-25 09:37 | Outpatient (REF) | payer MEDICAID, SELFPAY ==
--- NOTE | ~2020-11-25 | CT_ITS ---
EXAMINATION: CT HEAD WITHOUT CONTRAST CLINICAL INFORMATION: Dizziness and giddiness. Gait and mobility. COMPARISON: None TECHNIQUE: Contiguous axial imaging was performed from the skull base to vertex without intravenous administration of contrast. This CT examination was performed using dose optimization techniques as appropriate, variously including the following: *Automated exposure control *Adjustment of mA and/or kV according to patient size (this includes techniques or standardized protocols for targeted exams where dose is matched to indication/reason for exam; i.e. extremities or head) *Use of iterative reconstruction technique DLP: 665 mGy-cm FINDINGS: There is no evidence of acute intracranial hemorrhage or territorial infarction. No abnormal mass effect or midline shift is seen. Kay to white matter differentiation is well preserved. No extra-axial fluid collections are identified. The ventricles are normal in size. There is no abnormal attenuation within the brain parenchyma. The osseous structures and soft tissues are normal. The mastoid air cells and visualized portions of the paranasal sinuses are well aerated. CT/CT head/brain wo con IMPRESSION: No acute intracranial process seen.
== END 2020-11-25 09:38 | disposition home or self-care (01) ==
LOC: HO.CT 09:37
PROVIDERS: PCP Internal Medicine; Visit Provider Emergency Medicine
DX: G44.89 Other headache syndrome (principal); R26.89 Other abnormalities of gait and mobility; R32 Unspecified urinary incontinence; R42 Dizziness and giddiness
CPT/HCPCS: 70450

== ENCOUNTER 2020-12-21 09:54 | Emergency (ER) | payer MEDICAID, SELFPAY ==
[2020-12-21 10:39] VITALS: BP 155/68; PULSE 63; RESP 18; TEMP 36.7; O2SAT 100; BMI 25.4
[2020-12-21 11:38] LABS: Influenza A PCR NEGATIVE (Negative); Influenza B PCR NEGATIVE (Negative); Resp Syncy Virus RNA Qual PCR NEGATIVE (Negative); SARS COV2 PCR INHOUSE NEGATIVE (Negative)
--- NOTE | 2020-12-21 11:55 | ED.GENADULT ---
HPI - General Adult General Chief complaint: General Medical Stated complaint: fever asthma body ache nausea headache Time Seen by Provider: 12/21/20 11:39 History of Present Illness HPI narrative: Cough upper respiratory symptoms for the last 3 days. Patient has a history of asthma. History of COVID infection back in July. Patient subsequently received the coronavirus vaccine x2. The last 1 was back in September. Patient complained of coughing upper respiratory symptoms. Positive low-grade fever. No nausea no vomiting. No chest pain or diaphoresis. Patient from home. No vomiting. Related Data Home Medications Medication Instructions Recorded Confirmed acetaminophen 650 mg 650 mg PO Q12H 07/08/20 tablet,extended release (Tylenol 8 Hour) guaifenesin 100 mg/5 mL oral 200 mg PO Q4H PRN 08/05/20 liquid (Tussin Expectorant) Previous Rx's Medication Instructions Recorded lisinopril 2.5 mg tablet 2.5 mg PO DAILY #30 tab 03/11/20 cholecalciferol (vitamin D3) 50 50 mcg PO DAILY #30 tab 04/13/20 mcg (2,000 unit) tablet dexlansoprazole 60 mg 60 mg PO DAILY 30 Days #30 cap 07/08/20 capsule,biphase delayed release (Dexilant) albuterol sulfate 90 mcg/actuation 1 inh INHALATION QID PRN #6.7 g 07/17/20 aerosol inhaler benzonatate 100 mg capsule 100 mg PO TID PRN #20 cap 07/17/20 (Tessalon Perles) docusate sodium 100 mg capsule 100 mg PO DAILY 30 Days #30 cap 08/05/20 (Colace) Allergies Allergy/AdvReac Type Severity Reaction Status Date / Time Penicillins [PENICILLINS] Allergy Intermediate RASH Verified 12/21/20 10:39 Hydrocodone-Acetaminophen Allergy Unknown tachycardia Uncoded 11/14/18 00:00 narcotics AdvReac Mild heart Uncoded 07/08/20 13:32 palpitations Review of Systems Review of Systems: Constitutional: No Weight loss, positive Fever, No Chills, No Night Sweats, No Fatigue, No Malaise ENT/Mouth: No Hearing loss, No Ear Pain, No Nasal Congestion, No Sinus Pain, No Hoarseness, No sore throat, No Rhinorrhea, No Swallowing Difficulty Eyes: No Eye Pain, No Swelling, No Redness, No Foreign Body, No Discharge, No Vision Changes Cardiovascular: No Chest Pain, No SOB, No Dyspnea on Exertion, No Orthopnea, No Edema, No Palpitations Respiratory: Positive Cough, No Sputum, No Wheezing, No Smoke Exposure, No Dyspnea Gastrointestinal: No Nausea, No Vomiting, No Diarrhea, No Constipation, No abdominal Pain, No Hematochezia, No Melena Genitourinary: no irregular bleeding, No Dysuria, No Urinary Frequency, No Hematuria, No Urinary Incontinence, No Urgency, No Flank Pain, No Urinary Flow Changes, No Hesitancy Musculoskeletal: No joint pain, No Myalgias, No Joint Swelling Skin: No Skin Lesions, No rash Neuro: No Weakness, No Numbness, No Paresthesias, No Loss of Consciousness, No Dizziness, No Headache Psych: No Anxiety/Panic, No Depression, No SI/HI/AH/VH, No Social Issues, Heme/Lymph: No Bruising, No Bleeding,No Lymphadenopathy Endocrine: No Polyuria, No Polydipsia, No Temperature Intolerance Yes all other systems are reviewed and are negative [facility] Past Medical History Attestation statement: The following information was validated with the patient. Medical History Arthritis High cholesterol HTN (hypertension) Surgical History Hx of colonoscopy (~2019) Family History Family History Mother HTN (hypertension) Diabetes Social History Social History Alcohol intake: current Alcohol intake frequency: does not drink Advance Directives: Yes Advance Directives Information Provided: Yes Advance Directives on File: No Patient : No Physical Exam Vital Signs: Vital Signs: Last Vital Signs Temp 98.0 F 12/21/20 10:39 Pulse 63 12/21/20 10:39 Resp 18 12/21/20 10:39 BP 155/68 H 12/21/20 10:39 Pulse Ox 100 12/21/20 10:39 Body Mass Index 25.4 Appearance: Alert. Oriented X3. No acute distress. Eyes: Pupils equal, round and reactive to light. ENT: Pharynx normal. Neck: Normal inspection. Neck supple. No lymph nodes noted. No crepitus CVS: Normal heart rate and rhythm. Pulses normal. Normal S1 and S2 Respiratory: No respiratory distress. Breath sounds normal. No Wheezing. No rales Abdomen: Soft and nontender. No rigidity. No distention. good BS x4 Skin: Skin warm and dry. Normal skin color. Normal skin turgor. Extremities: No lower extremity edema. Neurovascular intact to all extremities. No Lacerations. No Rash Neuro: Oriented X 3. No motor deficit. No sensory deficit. Moving all extermities. No slurred speech Medical Decision Making MDM Narrative Medical decision making narrative: Patient is 60 years old well-appearing O2 sat is 99% on room air. Respiratory rate is normal. Lungs are clear bilaterally. Positive upper respiratory symptoms. Will discharge patient home. A COVID test was sent. Patient needs home isolation in either case. In stable condition. Discharge Plan Discharge Clinical Impression: Upper respiratory infection Patient Disposition: Home, Self-Care Instructions: COVID-19 (Coronavirus Disease 2019) (ED), Upper Respiratory Infection (ED) Additional Instructions: Please follow strict home quarantine. Risk of Coronavirus still exists. Please stay home for at least 7 days from the onset of symptoms. Please stay home if you have a fever please stay home until off fever has resolved for at least 48 hours. Prescriptions: No Action lisinopril 2.5 mg tablet 2.5 mg PO DAILY Qty: 30 RF: 3 cholecalciferol (vitamin D3) 50 mcg (2,000 unit) tablet 50 mcg PO DAILY Qty: 30 RF: 11 benzonatate [Tessalon Perles] 100 mg capsule 100 mg PO TID PRN (Reason: cough) Qty: 20 RF: 0 albuterol sulfate 90 mcg/actuation HFA aerosol inhaler 1 inh inhalation QID PRN (Reason: shortness of breath or wheezing) Qty: 6.7 RF: 0 Dexilant 60 mg capsule,biphase delayed releas 60 mg PO DAILY 30 Days Qty: 30 RF: 6 docusate sodium [Colace] 100 mg capsule 100 mg PO DAILY 30 Days Qty: 30 RF: 6 Referrals: Physician,Unknown [Primary Care Provider] - 2 days Print Language: Maltese
--- NOTE | 2020-12-21 12:08 | PC.NURSE ---
pt reporting 3 days of chills, subjective fevers, headaches, body aches. covid in may and vaccinated in october/november. unlabored resp. slight dry cough in room. skin pwd. will isolate and await call from [facility] [place].
[2020-12-21 12:09] VITALS: BP 135/57; PULSE 61; RESP 18; TEMP 37.1; O2SAT 100
== END 2020-12-21 12:23 | disposition home or self-care (01) ==
PROVIDERS: Emergency Provider Emergency Medicine Emergency Medical Services
DX: J06.9 Acute upper respiratory infection, unspecified (principal); R50.9 Fever, unspecified; M54.5 Low back pain; I10 Essential (primary) hypertension; Z20.822 Contact with and (suspected) exposure to COVID-19; Z79.899 Other long term (current) drug therapy
CPT/HCPCS: 0241U; 36415; 99283; 99284

== ENCOUNTER 2021-01-25 09:15 | Outpatient (REF) | payer MEDICAID, SELFPAY ==
--- NOTE | ~2021-01-25 | XR_ITS ---
EXAMINATION: CERVICAL SPINE AND RIGHT SHOULDER CLINICAL INFORMATION: Right arm pain and radiculopathy. COMPARISON: None TECHNIQUE: Cervical spine 5 views. Right shoulder 4 views. FINDINGS: CERVICAL SPINE: There is normal cervical lordosis. The vertebral heights and alignment are normal. The disc heights are maintained normally. There is mild ventral spondylosis C3-C4, C5-C6 and C6-C7 disc levels. The neural foramina are patent bilaterally. No visible acute fracture, dislocation or lytic process seen. The prevertebral soft tissues are normal. RIGHT SHOULDER: The glenohumeral alignment is normal. The AC joint space is minimally reduced. No fracture, loose bodies or bony erosive changes are seen. The soft tissues are normal. XR/XR cervical spine 4V IMPRESSION: Mild ventral spondylosis of the dorsal spine at C3-C4, C5-C6 and C6-C7 disc levels. No acute fracture is seen. The neural foramina are patent. Mild arthritic changes of the right AC joint.
--- NOTE | ~2021-01-25 | XR_ITS ---
EXAMINATION: CERVICAL SPINE AND RIGHT SHOULDER CLINICAL INFORMATION: Right arm pain and radiculopathy. COMPARISON: None TECHNIQUE: Cervical spine 5 views. Right shoulder 4 views. FINDINGS: CERVICAL SPINE: There is normal cervical lordosis. The vertebral heights and alignment are normal. The disc heights are maintained normally. There is mild ventral spondylosis C3-C4, C5-C6 and C6-C7 disc levels. The neural foramina are patent bilaterally. No visible acute fracture, dislocation or lytic process seen. The prevertebral soft tissues are normal. RIGHT SHOULDER: The glenohumeral alignment is normal. The AC joint space is minimally reduced. No fracture, loose bodies or bony erosive changes are seen. The soft tissues are normal. XR/XR shoulder RT min 2V IMPRESSION: Mild ventral spondylosis of the dorsal spine at C3-C4, C5-C6 and C6-C7 disc levels. No acute fracture is seen. The neural foramina are patent. Mild arthritic changes of the right AC joint.
== END 2021-01-25 09:16 | disposition home or self-care (01) ==
LOC: HO.XRAY 09:15
PROVIDERS: Absent Provider Internal Medicine; PCP Internal Medicine; Visit Provider Emergency Medicine
DX: M54.12 Radiculopathy, cervical region (principal); M79.601 Pain in right arm
CPT/HCPCS: 72050; 73030

== ENCOUNTER → 2021-02-04 15:52 | Outpatient (BNVA) | payer MEDICAID, SELFPAY | PROVIDERS: PCP Internal Medicine; Visit Provider Nurse Practitioner ==

== ENCOUNTER → 2021-02-26 16:01 | Outpatient (BNVA) | payer MEDICAID, SELFPAY | PROVIDERS: PCP Internal Medicine; Visit Provider Nurse Practitioner ==

== ENCOUNTER 2021-03-12 14:25 | Outpatient (REF) | payer MEDICAID, SELFPAY | END 2021-03-12 14:26 | disposition home or self-care (01) | LOC: HO.LNP 14:25 | PROVIDERS: Visit Provider Nurse Practitioner | DX: R10.13 Epigastric pain (principal) | CPT/HCPCS: 87338 ==

== ENCOUNTER 2021-04-02 09:09 | Emergency (ER) | payer MEDICAID, SELFPAY ==
--- NOTE | ~2021-04-02 | XR_ITS ---
EXAMINATION: XR CHEST CLINICAL INFORMATION: Productive cough COMPARISON: Previous chest x-ray most recent October 2020 TECHNIQUE: 2 views of the chest were obtained. FINDINGS: No significant abnormality is noted involving the heart, lungs, mediastinum, bony thorax or soft tissues. XR/XR chest 2V IMPRESSION: Unremarkable examination.
[2021-04-02 09:30] VITALS: BP 141/70; PULSE 98; RESP 18; TEMP 37.2; O2SAT 99; BMI 23.6
--- NOTE | 2021-04-02 09:55 | ED_ITS ---
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 Patient tested negative for strep and COVID yesterday. Having continued symptoms. No fevers, chills, shortness of breath, chest pain. Cough is productive with yellow sputum. Related Data Home Medications Medication Instructions Recorded Confirmed acetaminophen 650 mg 650 mg PO Q12H 07/08/20 tablet,extended release (Tylenol 8 Hour) guaifenesin 100 mg/5 mL oral 200 mg PO Q4H PRN 08/05/20 liquid (Tussin Expectorant) fluticasone propionate 115 2 puff PO 02/04/21 mcg-salmeterol 21 mcg/actuation HFA inhaler (Advair HFA) ascorbic acid (vitamin C) 500 mg 500 mg PO DAILY 02/26/21 tablet (Vitamin C) fluticasone propionate 50 1 - 2 spray INTRANASAL DAILY PRN 02/26/21 mcg/actuation nasal spray,suspension Previous Rx's Medication Instructions Recorded lisinopril 2.5 mg tablet 2.5 mg PO DAILY #30 tab 03/11/20 cholecalciferol (vitamin D3) 50 50 mcg PO DAILY #30 tab 04/13/20 mcg (2,000 unit) tablet albuterol sulfate 90 mcg/actuation 1 inh INHALATION QID PRN #6.7 g 07/17/20 aerosol inhaler benzonatate 100 mg capsule 100 mg PO TID PRN #20 cap 07/17/20 (Tessalon Perles) dexlansoprazole 60 mg 60 mg PO DAILY 30 Days #30 cap 02/04/21 capsule,biphase delayed release (Dexilant) docusate sodium 100 mg capsule 100 mg PO DAILY 30 Days #30 cap 02/04/21 (Colace) famotidine 40 mg tablet (Pepcid) 40 mg PO BEDTIME 30 Days #30 tab 02/26/21 azithromycin 250 mg tablet See Rx Instructions .ROUTE 04/02/21 .COMPLEX #6 tab Allergies Allergy/AdvReac Type Severity Reaction Status Date / Time Penicillins [PENICILLINS] Allergy Intermediate RASH Verified 04/02/21 09:30 Hydrocodone-Acetaminophen Allergy Unknown tachycardia Uncoded 02/26/21 16:02 narcotics AdvReac Mild heart Uncoded 02/26/21 16:02 palpitations Review of Systems Review of Systems: Yes all other systems are reviewed and are negative Constitutional: Constitutional: Reports no additional constitutional complaints, Denies body ache(s), Denies chills, Denies fever(s), Denies headache(s) and Denies weakness Eyes: Eyes: Reports no additional eye complaints and Denies change in vision ENT: Reports system reviewed and no additional complaints, except as documented, Denies dizziness, Denies headache(s), Denies nasal congestion, Denies nasal discharge, Denies neck pain, Reports sinus pain, Reports sinus pressure and Reports sore throat Cardiovascular: Cardiovascular: Reports no additional cardiovascular complaints, Denies chest pain, Denies leg edema and Denies dyspnea Respiratory: Respiratory: Reports no additional respiratory complaints, Reports cough and Denies dyspnea Gastrointestinal: Gastrointestinal: Reports no additional gastrointestinal complaints, Denies abdominal pain, Denies diarrhea, Denies nausea and Denies vomiting Genitourinary: Genitourinary: Reports no additional female genitourinary complaints and Denies urinary incontinence Musculoskeletal: Musculoskeletal: Reports no additional musculoskeletal complaints, Denies back pain, Denies arthralgias, Denies joint swelling, Denies neck pain, Denies numbness and Denies tingling Integumentary/Breasts: Skin/Breast: Reports system reviewed and no additional complaints, except as docu and Denies rash Neurologic: Reports system reviewed and no additional complaints, except as documented, Denies Abnormal speech present, Denies dizziness, Denies headache(s), Denies numbness, Denies tingling and Denies weakness PMFSH Past Medical History Attestation statement: The following information was validated with the patient. Source: old records reviewed and nursing notes reviewed Medical History Arthritis High cholesterol HTN (hypertension) Surgical History History of cholecystectomy History of esophagogastroduodenoscopy (EGD) Hx of colonoscopy (~2019) Family History Family History Mother HTN (hypertension) Diabetes Social History Social History Alcohol intake: current Alcohol intake frequency: does not drink Advance Directives: No Advance Directives Information Provided: No Patient : No Physical Exam Vital Signs: Vital Signs: Last Vital Signs Temp 98.9 F 04/02/21 09:30 Pulse 98 04/02/21 09:30 Resp 18 04/02/21 09:30 BP 141/70 H 04/02/21 09:30 Pulse Ox 99 04/02/21 09:30 Body Mass Index 23.6 Const: General: cooperative, healthy appearing, comfortable and no acute distress Orientation/consciousness: patient oriented x3 Limitations: no limitations HENMT: Head: Yes normal to inspection Ears: hearing grossly normal bilaterally and TM's normal bilaterally General nose exam: Normal external nose present Face and sinus: Yes normal facial exam and Yes sinus tenderness Mouth: Normal oral and palatal mucosa present Throat: Yes posterior oropharynx normal, Yes uvula midline, Yes abnormal tonsil (bilateral erythema with no exudate ) and No peritonsillar mass Eyes: General: appearance normal, both eyes and all related structures Pupils: Equal, round and reactive pupils present Neck: Neck: Yes normal visual inspection, Yes full ROM, Yes no lymphadenopathy and Yes no meningeal signs Chest: Chest palpation & inspection: normal inspection of the chest Resp: Effort & Inspection: normal respiratory effort Auscultation: clear to auscultation bilaterally Cardio: Rate: regular rate Rhythm: regular rhythm Peripheral pulses: Peripheral pulses 2+ throughout GI: Inspection: Yes normal to inspection Palpation (GI): Soft to palpation and nontender Auscultation: normal bowel sounds Back/Spine/Pelvis: Thoracic/Lumbar Spine: thoracic and lumbar spine normal to inspection Skin: General skin exam: no rashes or lesions noted Neuro: General: patient oriented x3, no meningeal signs, no focal motor deficits and normal sensation to monofilament Cranial nerves: Yes Equal, round and reactive pupils present Cognition (Neuro): normal cognition Speech: No Abnormal speech present Gait exam (Neuro): Normal gait present Motor exam (neuro): 5/5 motor strength present throughout Extrem: General: Yes normal to inspection, Yes no pedal edema and Yes no calf tenderness Course Course Course Narrative: URI symptoms for greater than 1 week despite supportive measures. Exam is benign w/ exception of mild tonsilar erythema and sinus TTP Will send COVID and strep, CXR 1050-strep and COVID are negative. Chest x-ray shows no acute finding. Will treat with course of antibiotics for presumed bronchitis, pharyngitis. Patient tells me some difficulty with swallowing solids due to sore throat. Able to swallow liquids with no problem. No evidence of [employer]. Mild tonsillar erythema and swelling with no exudate. Uvula is midline. Recommended cool fluid. Alternating Motrin and Tylenol saltwater gargles. Reviewed worrisome signs and symptoms of when to return to the emergency department. Comfortable discharge home. MDM - URI/Sore Throat Differential Diagnosis Differential diagnosis: Likely upper respiratory infection Medical Records Attestation: I reviewed the patient's medical records. Lab Data Attestation: I reviewed the patient's lab results. Labs: Lab Results 04/02/21 04/02/21 Range/Units 09:33 09:33 COVID-19 (LETY) Negative (Negative) COVID-19 Clin Com See Note S. pyogenes GrpA RIZWAN Negative (Negative) Imaging Data Chest x-ray: Attestation: I personally reviewed and interpreted this imaging study as follows: Radiologist's impression: [place] [id number] XRay Report Signed Patient: Crystal Panchal MR#: [id number] : 1960 Acct:[id number] Age/Sex: 60 / F ADM Date: 04/02/21 Loc: .ED Attending Dr: Ordering Physician: Shaye Chris NP Date of Service: 04/02/21 Procedure(s): XR chest 2V Accession Number(s): [id number] cc: Shaye Chris NP~ EXAMINATION: XR CHEST CLINICAL INFORMATION: Productive cough COMPARISON: Previous chest x-ray most recent October 2020 TECHNIQUE: 2 views of the chest were obtained. FINDINGS: No significant abnormality is noted involving the heart, lungs, mediastinum, bony thorax or soft tissues. XR/XR chest 2V IMPRESSION: Unremarkable examination. Discharge Plan Discharge Clinical Impression: Pharyngitis, Bronchitis Patient Disposition: Home, Self-Care Instructions: Pharyngitis (ED), Sinusitis (ED) Additional Instructions: Covid and strep test are negative. Alternate motrin and tylenol Increase fluids, rest Salt water gargles Prescriptions: New azithromycin 250 mg tablet See Rx Instructions .ROUTE .COMPLEX Qty: 6 RF: 0 No Action lisinopril 2.5 mg tablet 2.5 mg PO DAILY Qty: 30 RF: 3 cholecalciferol (vitamin D3) 50 mcg (2,000 unit) tablet 50 mcg PO DAILY Qty: 30 RF: 11 benzonatate [Tessalon Perles] 100 mg capsule 100 mg PO TID PRN (Reason: cough) Qty: 20 RF: 0 albuterol sulfate 90 mcg/actuation HFA aerosol inhaler 1 inh inhalation QID PRN (Reason: shortness of breath or wheezing) Qty: 6.7 RF: 0 acetaminophen [Tylenol 8 Hour] 650 mg tablet extended release 650 mg PO Q12H RF: 0 guaifenesin [Tussin Expectorant] 100 mg/5 mL liquid 200 mg PO Q4H PRNRF: 0 Advair HFA 115-21 mcg/actuation HFA aerosol inhaler 2 puff PO RF: 0 Dexilant 60 mg capsule,biphase delayed releas 60 mg PO DAILY 30 Days Qty: 30 RF: 6 docusate sodium [Colace] 100 mg capsule 100 mg PO DAILY 30 Days Qty: 30 RF: 6 fluticasone propionate 50 mcg/actuation spray,suspension 1 - 2 spray intranasal DAILY PRNRF: 0 ascorbic acid (vitamin C) [Vitamin C] 500 mg tablet 500 mg PO DAILY RF: 0 famotidine [Pepcid] 40 mg tablet 40 mg PO BEDTIME 30 Days Qty: 30 RF: 3 Referrals: Luis Carlos Hurd MD [Primary Care Provider] - 2 days Interventions: ED Discharge Assessment Last Done: 04/02/21 10:55 Print Language: Tanzanian
[2021-04-02 10:17] LABS: IDNOW Serial# 9DD0AD1C; Strep A Nucleic Acid Negative (Negative)
[2021-04-02 10:20] LABS: COVID-19 Test Negative (Negative)
== END 2021-04-02 10:55 | disposition home or self-care (01) ==
PROVIDERS: Emergency Provider Emergency Medicine; PCP Internal Medicine
DX: J02.9 Acute pharyngitis, unspecified (principal); J40 Bronchitis, not specified as acute or chronic; Z20.822 Contact with and (suspected) exposure to COVID-19; I10 Essential (primary) hypertension
CPT/HCPCS: 36415; 71046; 87635; 87651; 99283

== ENCOUNTER 2021-04-19 11:44 | Outpatient (REF) | payer MEDICAID, SELFPAY ==
--- NOTE | ~2021-04-19 | MM_ITS ---
EXAMINATION: MM SCREENING DIGITAL BREAST TOMOSYNTHESIS, BILATERAL CLINICAL INFORMATION: Screening. Asymptomatic. The lifetime risk of breast cancer based on the Tyrer-Cuzick Model is 7%. COMPARISON: Mammography: 11/21/2016, 03/27/2015 TECHNIQUE: Digital breast tomosynthesis is performed in both the craniocaudal and mediolateral oblique views along with computer-aided detection (CAD). Synthesized 2D images are generated from the tomosynthesis. FINDINGS: There are scattered areas of fibroglandular density (ACR BI-RADS breast composition Category b). There are no significant masses, abnormal calcifications, or other abnormalities. Parenchymal pattern is similar to prior exams. No developing density. No significant changes. MM/MM tomosynthesis screening BI IMPRESSION: No mammographic evidence of malignancy. ASSESSMENT: BI-RADS 1: Negative RECOMMENDATION: Routine annual mammography screening. This patient's information was entered into a reminder system with a target due date for their next mammogram.
== END 2021-04-19 11:45 | disposition home or self-care (01) ==
LOC: HO.MAMMO 11:44
PROVIDERS: Visit Provider Internal Medicine
DX: Z12.31 Encounter for screening mammogram for malignant neoplasm of breast (principal)
CPT/HCPCS: 77063; 77067

== ENCOUNTER → 2021-04-23 11:41 | Outpatient (BNVA) | payer MEDICAID, SELFPAY | PROVIDERS: PCP Internal Medicine; Visit Provider Orthopaedic Surgery | DX: M75.41 Impingement syndrome of right shoulder (principal) | CPT/HCPCS: 20610; 99212; J1100 ==

== ENCOUNTER 2021-05-11 09:58 | Outpatient (RCR) | payer MEDICAID, SELFPAY ==
--- NOTE | 2021-05-11 10:54 | MHC.PT.EP ---
[facility] [place] Office [place] Office [place] Office [address] Jd Willis [address] [phone] F: [phone] F: [phone] F: [phone] F: [phone] Physical Therapy Plan of Care Date of Evaluation: Date of Surgery: Diagnosis: Impingement R shoulder Assessment: 60 y/o RHD female referred to PT with R shoulder impingement. Currently pain and difficulty with reaching overhead, cooking, writing, reaching behind her back, and head of strategy. Examination shows decreased R shoulder A/PROM, decreased B UE strength, decreased cervical AROM, decreased posterior GH joint mobility, (+) impingement tests, and impaired postural awareness. S/s consistent with impingement. Recommend PT 2x/week for 6 weeks to address impairments, implement HEP, and optimize functional mobility. Frequency and Duration: The patient will be seen 2x/week for 6 weeks Short Term Goals: 3 weeks 1. I with HEP 2. Improve R shoulder AROM by 10 degrees for flexion to faciliate reaching overhead [facility] Goals: 6 weeks 1. I with HEP and self management of sx 2. Pt will improve R shoulder AROM flexion and abduction to 130* to faciliate reaching into overhead cabinets 3. Pt will improve R shoulder strength to 4/5 throughout to facilitate head of strategy Treatment Plan: Modalities to reduce pain, spasms and effusion. Manual therapy to restore motion and function. Therapeutic exercise to improve strength and flexibility. Neuromuscular re-education for posture and balance. Therapeutic activities to return to functional activities of daily living. Electronically signed by: Darcy Bailey PT Please sign and return to therapist. Thank you for your referral.
--- NOTE | 2021-06-25 08:06 | MHC.PT.DC ---
[facility] [place] Office [place] Office [place] [facility] [address] Jd Willis 140 [facility] [phone] F: [phone] F: [phone] F: [phone] F: [phone] Physical Therapy Discharge Report Diagnosis: Impingement R shoulder Date of Surgery: Date of Evaluation: 05/11/21 Date of Discharge: 06/25/21 Treatments to Date: 1 Cancellations to Date: 4 No Shows to Date: 1 Discharge Status: Visit Non-compliance Discharge Summary: D/c due to noncompliance. She has not attended since initial evaluation. Electronically signed by: Darcy Bailey PT Please sign and return to therapist. Thank you for your referral.
== END 2021-06-25 08:06 | disposition home or self-care (01) ==
LOC: HO.PT 09:58
PROVIDERS: PCP Internal Medicine; Visit Provider Orthopaedic Surgery
DX: M75.41 Impingement syndrome of right shoulder (principal)
CPT/HCPCS: 97110; 97161

== ENCOUNTER 2021-05-18 09:45 | Outpatient (REF) | payer MEDICAID, SELFPAY ==
--- NOTE | ~2021-05-18 | XR_ITS ---
EXAMINATION: XR HAND, LEFT CLINICAL INFORMATION: Pain COMPARISON: Previous exam January 2019 TECHNIQUE: PA, lateral, and oblique views of the left hand. FINDINGS: Bone alignment is normal. No fracture or dislocation is seen. There is arthritis at the IP joints, greatest at the IP joint of the thumb. This is increased from 2019 exam. There is adjacent periarticular soft tissue swelling. The joint spaces and soft tissues are otherwise normal. XR/XR hand LT min 3V IMPRESSION: Mild arthritis at the IP joints, greatest at the thumb.
== END 2021-05-18 09:46 | disposition home or self-care (01) ==
LOC: HO.HOSX 09:45
PROVIDERS: PCP Internal Medicine; Visit Provider Orthopaedic Surgery
DX: M19.042 Primary osteoarthritis, left hand (principal); M67.442 Ganglion, left hand
CPT/HCPCS: 73130; 99202

== ENCOUNTER 2021-07-14 10:16 | Emergency (ER) | payer MEDICAID, SELFPAY ==
--- NOTE | 2021-07-14 | ECG_ITS ---
Test Reason : chest pain Blood Pressure : / mmHG Vent. Rate : 067 BPM Atrial Rate : 067 BPM P-R Int : 182 ms QRS Dur : 108 ms QT Int : 394 ms P-R-T Axes : 059 -34 057 degrees QTc Int : 416 ms Normal sinus rhythm Left axis deviation Incomplete left bundle branch block Minimal voltage criteria for LVH, may be normal variant ( [place] product ) Nonspecific T wave abnormality Abnormal ECG When compared with ECG of 30-OCT-2020 15:54, No significant change was found Referred By: Generic ED Physician Electronically Signed By:Pancho Gallegos
--- NOTE | ~2021-07-14 | XR_ITS ---
EXAMINATION: XR CHEST CLINICAL INFORMATION: Chest pain. COMPARISON: Most recent chest radiograph dated 04/02/2021. TECHNIQUE: Frontal view of the chest was obtained. FINDINGS: The lungs are clear. The cardiomediastinal silhouette is normal in size. There is no pleural effusion or pneumothorax. No acute osseous abnormality. XR/XR chest 1V IMPRESSION: No acute cardiopulmonary findings.
[2021-07-14 10:24] VITALS: BP 119/47; PULSE 71; RESP 16; TEMP 36; O2SAT 98; BMI 23.1
--- NOTE | 2021-07-14 11:26 | ED_ITS ---
HPI - Chest Pain General Chief Complaint: Chest Pain Stated Complaint: chest pains/SOB/dizziness Time Seen by Provider: 07/14/21 11:17 Source: patient and old records reviewed History of Present Illness HPI narrative: Patient complaining of chest pain for 1 week. It is left-sided and sharp. Worse with inspiration and palpation. No recent cough. Positive headache. Positive mild bilateral facial pain, maxillary sinus region. No dyspnea. No history of cardiac disease or thromboembolic disease. Never smoker. History of hypertension, asthma, GERD. Pain has been constant and not intermittent. Related Data Home Medications Medication Instructions Recorded Confirmed acetaminophen 650 mg 650 mg PO Q12H 07/08/20 tablet,extended release (Tylenol 8 Hour) guaifenesin 100 mg/5 mL oral 200 mg PO Q4H PRN 08/05/20 liquid (Tussin Expectorant) fluticasone propionate 115 2 puff PO 02/04/21 mcg-salmeterol 21 mcg/actuation HFA inhaler (Advair HFA) ascorbic acid (vitamin C) 500 mg 500 mg PO DAILY 02/26/21 tablet (Vitamin C) fluticasone propionate 50 1 - 2 spray INTRANASAL DAILY PRN 02/26/21 mcg/actuation nasal spray,suspension Previous Rx's Medication Instructions Recorded lisinopril 2.5 mg tablet 2.5 mg PO DAILY #30 tab 03/11/20 albuterol sulfate 90 mcg/actuation 1 inh INHALATION QID PRN #6.7 g 07/17/20 aerosol inhaler benzonatate 100 mg capsule 100 mg PO TID PRN #20 cap 07/17/20 (Tessalon Perlsmith) dexlansoprazole 60 mg 60 mg PO DAILY 30 Days #30 cap 02/04/21 capsule,biphase delayed release (Dexilant) docusate sodium 100 mg capsule 100 mg PO DAILY 30 Days #30 cap 02/04/21 (Colace) azithromycin 250 mg tablet See Rx Instructions .ROUTE 04/02/21 .COMPLEX #6 tab cholecalciferol (vitamin D3) 50 50 mcg PO DAILY #30 tab 05/02/21 mcg (2,000 unit) tablet famotidine 40 mg tablet 40 mg PO BEDTIME #30 tab 06/30/21 ibuprofen 800 mg tablet 800 mg PO TID PRN #30 tab 07/14/21 Allergies Allergy/AdvReac Type Severity Reaction Status Date / Time Penicillins [PENICILLINS] Allergy Intermediate RASH Verified 05/18/21 10:22 Hydrocodone-Acetaminophen Allergy Unknown tachycardia Uncoded 05/18/21 10:22 narcotics AdvReac Mild heart Uncoded 05/18/21 10:22 palpitations Review of Systems Constitutional: Comments: No fevers or chills ENT: Comments: Sinus pain and tenderness Cardiovascular: Comments: Chest pain as described Respiratory: Comments: Pain with inspiration but no cough or dyspnea Gastrointestinal: Comments: No abdominal pain or nausea or vomiting Integumentary/Breasts: Comments: No rash PMFSH Past Medical History Medical History Arthritis High cholesterol HTN (hypertension) Surgical History History of cholecystectomy History of esophagogastroduodenoscopy (EGD) Hx of colonoscopy (~2019) Family History Family History Mother HTN (hypertension) Diabetes Social History Social History Alcohol intake: current Alcohol intake frequency: does not drink Advance Directives: No Advance Directives Information Provided: No Physical Exam Vital Signs: Vital Signs: Last Vital Signs Temp 96.8 F 07/14/21 10:24 Pulse 61 07/14/21 12:10 Resp 16 07/14/21 12:10 BP 116/51 L 07/14/21 12:10 Pulse Ox 98 07/14/21 12:10 BMI result Body Mass Index 23.1 Const: Other: Awake and alert no acute distress with stable vital signs HENMT: Other: No frontal sinus tenderness. Positive mild bilateral maxillary sinus tenderness Chest: Other: Chest wall tender to palpation maximally in left upper chest which reproduces symptoms Resp: Other: Clear and equal bilaterally without wheezes rales or rhonchi Cardio: Other: Regular rate and rhythm without murmurs rubs or gallops GI: Other: Soft nontender nondistended Skin: Other: Warm pink and dry without rash Extrem: Other: No calf tenderness or pedal edema Course Course Course Narrative: Chest pain for 1 week. Most consistent with musculoskeletal etiology but will rule out ACS. D-dimer for possible thromboembolic etiology. Heart score is 2 but with troponin still pending. Toradol IM. EKG normal sinus rhythm without ischemic changes. No change from prior EKG 12:49. Lab work is normal with a high sensitivity troponin of 3.5. Chest x-ray normal. He EKG nonischemic She is stable for discharge home with final diagnosis of musculoskeletal chest pain MDM - Chest Pain Lab Data Result diagrams: 07/14/21 11:57 07/14/21 11:25 Labs: Lab Results 07/14/21 07/14/21 07/14/21 Range/Units 11:25 11:25 11:37 WBC (4.8-10.8) X10*3/uL RBC (4.20-5.50) X10*6/uL Hgb (12.0-16.0) g/dl Hct (37.0-47.0) % MCV (80.0-98.0) fL MCH (27.0-33.0) pg MCHC (31.0-35.0) g/dl RDW (11.0-16.0) % Plt Count (160-400) X10*3/uL MPV (9.4-12.3) fL Immature Gran % (Auto) (0.0-0.4) % Neut % (Auto) (45-73) % Lymph % (Auto) (20-40) % [place] % (Auto) (2-11) % Eos % (Auto) (0-4) % Baso % (Auto) (0-2) % Lymph # (Auto) (1.2-4.9) X10*3/uL [place] # (Auto) (0.1-1.2) X10*3/uL Eos # (Auto) (0.0-0.4) X10*3/uL Baso # (Auto) (0.0-0.2) X10*3/uL Abs Immat Gran (auto) (0.00-0.03) X10*3/uL Absolute Neuts (auto) (2.0-8.3) x10*3/uL Absolute Nucleated RBC (0.0-0.012) X10*3/uL Nucleated RBC % (auto) (0.0-0.2) /100WBC D-Dimer High Sensitivty NG/ML Sodium 142 (135-145) mmol/L Potassium 4.3 (3.3-5.1) mmol/L Chloride 107 (96-108) mmol/L Carbon Dioxide 28 (22-29) mmol/L Anion Gap 11 L (12-20) BUN 21 H (9-16) mg/dL Creatinine 0.89 (0.5-1.4) mg/dL Estim Creat Clear Calc 64.5 Estimated GFR > 60 Random Glucose 96 (60-115) mg/dL Calcium 10.0 D (8.4-10.2) mg/dL Troponin I High Sens 3.5 (<3.5-17.0) ng/L COVID-19 (LETY) Negative (Negative) COVID-19 Clin Com See Note 07/14/21 07/14/21 Range/Units 11:39 11:57 WBC 3.8 L (4.8-10.8) X10*3/uL RBC 3.95 L (4.20-5.50) X10*6/uL Hgb 10.7 L (12.0-16.0) g/dl Hct 34.7 L (37.0-47.0) % MCV 87.8 (80.0-98.0) fL MCH 27.1 (27.0-33.0) pg MCHC 30.8 L (31.0-35.0) g/dl RDW 13.8 (11.0-16.0) % Plt Count 137 L (160-400) X10*3/uL MPV 13.0 H (9.4-12.3) fL Immature Gran % (Auto) 0.3 (0.0-0.4) % Neut % (Auto) 57.1 (45-73) % Lymph % (Auto) 32.0 (20-40) % [place] % (Auto) 8.8 (2-11) % Eos % (Auto) 1.3 (0-4) % Baso % (Auto) 0.5 (0-2) % Lymph # (Auto) 1.2 (1.2-4.9) X10*3/uL [place] # (Auto) 0.3 (0.1-1.2) X10*3/uL Eos # (Auto) 0.1 (0.0-0.4) X10*3/uL Baso # (Auto) 0.0 (0.0-0.2) X10*3/uL Abs Immat Gran (auto) 0.01 (0.00-0.03) X10*3/uL Absolute Neuts (auto) 2.1 (2.0-8.3) x10*3/uL Absolute Nucleated RBC 0.000 (0.0-0.012) X10*3/uL Nucleated RBC % (auto) 0.0 (0.0-0.2) /100WBC D-Dimer High Sensitivty < 150 NG/ML Sodium (135-145) mmol/L Potassium (3.3-5.1) mmol/L Chloride (96-108) mmol/L Carbon Dioxide (22-29) mmol/L Anion Gap (12-20) BUN (9-16) mg/dL Creatinine (0.5-1.4) mg/dL Estim Creat Clear Calc Estimated GFR Random Glucose (60-115) mg/dL Calcium (8.4-10.2) mg/dL Troponin I High Sens (<3.5-17.0) ng/L COVID-19 (LETY) (Negative) COVID-19 Clin Com Scores Heart Score History: -0- slightly suspicious ECG: -0- normal Age: -1- >45 - <65 Risk factory: -1- 1 or 2 risk factors Troponin: -0- < or = normal limit Score: 2 Risk: 1.7% Discharge Plan Discharge Clinical Impression: Atypical chest pain Patient Disposition: Home, Self-Care Instructions: Chest Wall Pain (ED) Prescriptions: New ibuprofen 800 mg tablet 800 mg PO TID PRN (Reason: pain) Qty: 30 0RF No Action lisinopril 2.5 mg tablet 2.5 mg PO DAILY Qty: 30 3RF cholecalciferol (vitamin D3) 50 mcg (2,000 unit) tablet 50 mcg PO DAILY Qty: 30 11RF famotidine 40 mg tablet 40 mg PO BEDTIME Qty: 30 3RF benzonatate [Tessalon Perles] 100 mg capsule 100 mg PO TID PRN (Reason: cough) Qty: 20 0RF albuterol sulfate 90 mcg/actuation HFA aerosol inhaler 1 inh inhalation QID PRN (Reason: shortness of breath or wheezing) Qty: 6.7 0RF azithromycin 250 mg tablet See Rx Instructions .ROUTE .COMPLEX Qty: 6 0RF Rx Instructions: For 250 mg dose pack: take 500 mg today (day 1), then 250 mg for 4 days (days 2-5) acetaminophen [Tylenol 8 Hour] 650 mg tablet extended release 650 mg PO Q12H 0RF guaifenesin [Tussin Expectorant] 100 mg/5 mL liquid 200 mg PO Q4H PRN0RF Advair HFA 115-21 mcg/actuation HFA aerosol inhaler 2 puff PO 0RF Dexilant 60 mg capsule,biphase delayed releas 60 mg PO DAILY 30 Days Qty: 30 6RF docusate sodium [Colace] 100 mg capsule 100 mg PO DAILY 30 Days Qty: 30 6RF fluticasone propionate 50 mcg/actuation spray,suspension 1 - 2 spray intranasal DAILY PRN0RF ascorbic acid (vitamin C) [Vitamin C] 500 mg tablet 500 mg PO DAILY 0RF
[2021-07-14 11:44] LABS: Anion Gap 11 (12-20); Blood Urea Nitrogen 21 mg/dL (9-16); Carbon Dioxide 28 mmol/L (22-29); Chloride 107 mmol/L (96-108); Creatinine Clr Calc Pharmacy 64.5; Estimated Glomerular Filt Rate > 60; Glucose Random 96 mg/dL (60-115); Potassium 4.3 mmol/L (3.3-5.1); Sodium 142 mmol/L (135-145)
[2021-07-14 11:52] LABS: Troponin-I High Sensitivity 3.5 ng/L (<3.5-17.0)
[2021-07-14 12:02] LABS: D Dimer High Sensitivity < 150 NG/ML
[2021-07-14 12:03] LABS: COVID-19 Test Negative (Negative)
[2021-07-14 12:10] VITALS: BP 116/51; PULSE 61; RESP 16; O2SAT 98
[2021-07-14 12:10] LABS: Basophils Percent Auto 0.5 % (0-2); Eosinophils Absolute Auto 0.1 X10*3/uL (0.0-0.4); Eosinophils Percent Auto 1.3 % (0-4); Hematocrit 34.7 % (37.0-47.0); Hemoglobin 10.7 g/dl (12.0-16.0); Imm Gran Abs Auto 0.01 X10*3/uL (0.00-0.03); Imm Gran Pct Auto 0.3 % (0.0-0.4); Lymphocytes Absolute Auto 1.2 X10*3/uL (1.2-4.9); Mean Corpuscular HGB Conc 30.8 g/dl (31.0-35.0); Mean Corpuscular Hemoglobin 27.1 pg (27.0-33.0); Mean Corpuscular Volume 87.8 fL (80.0-98.0); Monocytes Absolute Auto 0.3 X10*3/uL (0.1-1.2); Monocytes Percent Auto 8.8 % (2-11); Neutrophils Absolute Auto 2.1 x10*3/uL (2.0-8.3); Neutrophils Percent Auto 57.1 % (45-73); Platelet Count 137 X10*3/uL (160-400); Red Blood Count 3.95 X10*6/uL (4.20-5.50); Red Cell Distribution Width 13.8 % (11.0-16.0); White Blood Count 3.8 X10*3/uL (4.8-10.8)
[2021-07-14] MEDS: Ketorolac Tromethamine 30 MG/ML VIAL IM (12:11)
[2021-07-14 13:31] VITALS: BP 120/42; PULSE 62; RESP 16; O2SAT 99
== END 2021-07-14 13:34 | disposition home or self-care (01) ==
PROVIDERS: Emergency Provider Emergency Medicine
DX: R07.89 Other chest pain (principal); Z20.822 Contact with and (suspected) exposure to COVID-19; I10 Essential (primary) hypertension; E78.5 Hyperlipidemia, unspecified
CPT/HCPCS: 36415; 71045; 80048; 84484; 85025; 85379; 87635; 93005; 96372; 99284; J1885

== ENCOUNTER 2021-08-18 11:00 | Emergency (ER) | payer MEDICAID, SELFPAY ==
--- NOTE | ~2021-08-18 | CT_ITS ---
EXAMINATION: CT HEAD WITHOUT CONTRAST CLINICAL INFORMATION: Left facial numbness COMPARISON: 11/25/2020 TECHNIQUE: Contiguous axial imaging was performed from the skull base to vertex without intravenous administration of contrast. This CT examination was performed using dose optimization techniques as appropriate, variously including the following: *Automated exposure control *Adjustment of mA and/or kV according to patient size (this includes techniques or standardized protocols for targeted exams where dose is matched to indication/reason for exam; i.e. extremities or head) *Use of iterative reconstruction technique DLP: 600 mGy-cm FINDINGS: There is no evidence of acute intracranial hemorrhage or territorial infarction. No abnormal mass effect or midline shift is seen. Kay to white matter differentiation is well preserved. No extra-axial fluid collections are identified. The ventricles are normal in size. There is no abnormal attenuation within the brain parenchyma. The osseous structures and soft tissues are normal. The mastoid air cells and visualized portions of the paranasal sinuses are well aerated. CT/CT head/brain wo con IMPRESSION: No acute intracranial pathology.
[2021-08-18 11:36] VITALS: BP 130/54; PULSE 74; RESP 18; TEMP 36.1; O2SAT 95; BMI 23.1
[2021-08-18 17:58] VITALS: BP 144/50; PULSE 60; RESP 16; TEMP 37.1; O2SAT 96
--- NOTE | 2021-08-18 18:04 | ED.NEUROSD ---
HPI - Neuro Symptoms/Deficit General Chief Complaint: Neuro Symptoms/Deficit Stated Complaint: numbness on left side of face/fatigue/SOB Time Seen by Provider: 08/18/21 12:23 Source: patient Mode of arrival: ambulatory Limitations: language barrier History of Present Illness HPI Narrative: Patient's history of migraine been having headache for last 3 days localized more to the top of the head associated slight nausea and light sensitivity also noticed numbness of the left side of the face with no other weakness. Patient also feel depressed and anxious as she is unable to sleep the night because of the neighbors no speech problem no focal deficit Related Data Home Medications Medication Instructions Recorded Confirmed acetaminophen 650 mg 650 mg PO Q12H 07/08/20 tablet,extended release (Tylenol 8 Hour) guaifenesin 100 mg/5 mL oral 200 mg PO Q4H PRN 08/05/20 liquid (Tussin Expectorant) fluticasone propionate 115 2 puff PO 02/04/21 mcg-salmeterol 21 mcg/actuation HFA inhaler (Advair HFA) ascorbic acid (vitamin C) 500 mg 500 mg PO DAILY 02/26/21 tablet (Vitamin C) fluticasone propionate 50 1 - 2 spray INTRANASAL DAILY PRN 02/26/21 mcg/actuation nasal spray,suspension Previous Rx's Medication Instructions Recorded lisinopril 2.5 mg tablet 2.5 mg PO DAILY #30 tab 03/11/20 albuterol sulfate 90 mcg/actuation 1 inh INHALATION QID PRN #6.7 g 07/17/20 aerosol inhaler benzonatate 100 mg capsule 100 mg PO TID PRN #20 cap 07/17/20 (Teshodan Garrido) dexlansoprazole 60 mg 60 mg PO DAILY 30 Days #30 cap 02/04/21 capsule,biphase delayed release (Dexilant) docusate sodium 100 mg capsule 100 mg PO DAILY 30 Days #30 cap 02/04/21 (Colace) cholecalciferol (vitamin D3) 50 50 mcg PO DAILY #30 tab 05/02/21 mcg (2,000 unit) tablet famotidine 40 mg tablet 40 mg PO BEDTIME #30 tab 06/30/21 ibuprofen 800 mg tablet 800 mg PO TID PRN #30 tab 07/14/21 [id number] 1 cap PO Q6H PRN #20 cap 08/18/21 50 mg-300 mg-40 mg capsule (Fioricet) Allergies Allergy/AdvReac Type Severity Reaction Status Date / Time Penicillins [PENICILLINS] Allergy Intermediate RASH Verified 05/18/21 10:22 Hydrocodone-Acetaminophen Allergy Unknown tachycardia Uncoded 05/18/21 10:22 narcotics AdvReac Mild heart Uncoded 05/18/21 10:22 palpitations Review of Systems Review of Systems: Yes all other systems are reviewed and are negative [facility] Past Medical History Medical History Arthritis High cholesterol HTN (hypertension) Surgical History History of cholecystectomy History of esophagogastroduodenoscopy (EGD) Hx of colonoscopy (~2019) Family History Family History Mother HTN (hypertension) Diabetes Social History Social History Alcohol intake: current Alcohol intake frequency: does not drink Advance Directives: No Advance Directives Information Provided: No Patient : No Physical Exam Vital Signs: Vital Signs: Last Vital Signs Temp 98.7 F 08/18/21 17:58 Pulse 71 08/18/21 19:05 Resp 16 08/18/21 17:58 BP 144/50 H 08/18/21 17:58 Pulse Ox 98 08/18/21 19:05 BMI result Body Mass Index 23.1 Appearance: Alert. Oriented X3. No acute distress. Eyes: PERRLA, No Nystagmus ENT: Pharynx normal. Oral Mucosa moist Neck: Normal inspection. Neck supple. CVS: Normal heart rate and rhythm. Pulses normal. Respiratory: No respiratory distress. Equal air entry bilateral, Abdomen: Soft and nontender. Bowel sounds are present, Skin: Skin warm and dry. Normal skin color. Normal skin turgor. Extremities: No lower extremity edema. No calf tenderness Neuro: Oriented X 3. No motor deficit. Decreased sensation left side of the face to light touch and pinprick, no cerebellar signs , other cranial nerves intact MDM - Neuro Symptoms/Deficit MDM Narrative Medical decision making narrative: Patient head scan negative for any acute pathology symptoms likely complex migraine discharge patient home on [facility] Lab Data Attestation: I reviewed the patient's lab results. Result diagrams: 08/18/21 19:38 08/18/21 19:38 Labs: Lab Results 08/18/21 08/18/21 Range/Units 19:38 19:38 WBC 4.3 L (4.8-10.8) X10*3/uL RBC 3.95 L (4.20-5.50) X10*6/uL Hgb 10.9 L (12.0-16.0) g/dl Hct 34.3 L (37.0-47.0) % MCV 86.8 (80.0-98.0) fL MCH 27.6 (27.0-33.0) pg MCHC 31.8 (31.0-35.0) g/dl RDW 13.9 (11.0-16.0) % Plt Count 154 L (160-400) X10*3/uL MPV 12.7 H (9.4-12.3) fL Immature Gran % (Auto) 0.2 (0.0-0.4) % Neut % (Auto) 49.6 (45-73) % Lymph % (Auto) 40.0 (20-40) % [place] % (Auto) 7.9 (2-11) % Eos % (Auto) 2.1 (0-4) % Baso % (Auto) 0.2 (0-2) % Lymph # (Auto) 1.7 (1.2-4.9) X10*3/uL [place] # (Auto) 0.3 (0.1-1.2) X10*3/uL Eos # (Auto) 0.1 (0.0-0.4) X10*3/uL Baso # (Auto) 0.0 (0.0-0.2) X10*3/uL Abs Immat Gran (auto) 0.01 (0.00-0.03) X10*3/uL Absolute Neuts (auto) 2.1 (2.0-8.3) x10*3/uL Absolute Nucleated RBC 0.000 (0.0-0.012) X10*3/uL Nucleated RBC % (auto) 0.0 (0.0-0.2) /100WBC Sodium 141 (135-145) mmol/L Potassium 4.2 (3.3-5.1) mmol/L Chloride 105 (96-108) mmol/L Carbon Dioxide 29 (22-29) mmol/L Anion Gap 11 L (12-20) BUN 16 (9-16) mg/dL Creatinine 0.83 (0.5-1.4) mg/dL Estim Creat Clear Calc 69.2 Estimated GFR > 60 Random Glucose 88 (60-115) mg/dL Calcium 9.8 (8.4-10.2) mg/dL Magnesium 2.1 (1.6-2.6) mg/dL Total Bilirubin 0.7 (0.0-1.0) mg/dL AST 15 (5-31) U/L ALT 12 (0-31) U/L Alkaline Phosphatase 52 (39-117) U/L Total Protein 7.1 (6.5-8.0) g/dL Albumin 4.1 (3.5-5.0) g/dL Discharge Plan Discharge Clinical Impression: Paresthesia, Migraine Patient Disposition: Home, Self-Care Instructions: Migraine Headache (ED), Paresthesia (ED) Additional Instructions: Rest at home take medication for headache as prescribed Follow with the neurologist [facility] en [facility] para el dolor de ghulam seg?n lo prescrito Sigue con el neur?logo Prescriptions: New lhhxqdtgth-jmexkundpbxdy-kmzq [Fioricet] 50-300-40 mg capsule 1 cap PO Q6H PRN (Reason: headache) Qty: 20 0RF No Action lisinopril 2.5 mg tablet 2.5 mg PO DAILY Qty: 30 3RF cholecalciferol (vitamin D3) 50 mcg (2,000 unit) tablet 50 mcg PO DAILY Qty: 30 11RF famotidine 40 mg tablet 40 mg PO BEDTIME Qty: 30 3RF benzonatate [Tessalon Perles] 100 mg capsule 100 mg PO TID PRN (Reason: cough) Qty: 20 0RF albuterol sulfate 90 mcg/actuation HFA aerosol inhaler 1 inh inhalation QID PRN (Reason: shortness of breath or wheezing) Qty: 6.7 0RF ibuprofen 800 mg tablet 800 mg PO TID PRN (Reason: pain) Qty: 30 0RF acetaminophen [Tylenol 8 Hour] 650 mg tablet extended release 650 mg PO Q12H 0RF guaifenesin [Tussin Expectorant] 100 mg/5 mL liquid 200 mg PO Q4H PRN0RF Advair HFA 115-21 mcg/actuation HFA aerosol inhaler 2 puff PO 0RF Dexilant 60 mg capsule,biphase delayed releas 60 mg PO DAILY 30 Days Qty: 30 6RF docusate sodium [Colace] 100 mg capsule 100 mg PO DAILY 30 Days Qty: 30 6RF fluticasone propionate 50 mcg/actuation spray,suspension 1 - 2 spray intranasal DAILY PRN0RF ascorbic acid (vitamin C) [Vitamin C] 500 mg tablet 500 mg PO DAILY 0RF Referrals: iFli Carrillo MD [Physician] - 1 week Print Language: Luxembourgish
[2021-08-18 19:05] VITALS: PULSE 71; O2SAT 98
[2021-08-18] MEDS: Acetaminophen 325 MG TABLET 975 MG PO (19:40)
[2021-08-18 19:42] LABS: MANUAL DIFF FLAG NO
[2021-08-18 19:45] LABS: Basophils Percent Auto 0.2 % (0-2); Eosinophils Absolute Auto 0.1 X10*3/uL (0.0-0.4); Eosinophils Percent Auto 2.1 % (0-4); Hematocrit 34.3 % (37.0-47.0); Hemoglobin 10.9 g/dl (12.0-16.0); Imm Gran Abs Auto 0.01 X10*3/uL (0.00-0.03); Imm Gran Pct Auto 0.2 % (0.0-0.4); Lymphocytes Absolute Auto 1.7 X10*3/uL (1.2-4.9); Mean Corpuscular HGB Conc 31.8 g/dl (31.0-35.0); Mean Corpuscular Hemoglobin 27.6 pg (27.0-33.0); Mean Corpuscular Volume 86.8 fL (80.0-98.0); Mean Platelet Volume 12.7 fL (9.4-12.3); Monocytes Absolute Auto 0.3 X10*3/uL (0.1-1.2); Monocytes Percent Auto 7.9 % (2-11); Neutrophils Absolute Auto 2.1 x10*3/uL (2.0-8.3); Neutrophils Percent Auto 49.6 % (45-73); Platelet Count 154 X10*3/uL (160-400); Red Blood Count 3.95 X10*6/uL (4.20-5.50); Red Cell Distribution Width 13.9 % (11.0-16.0); White Blood Count 4.3 X10*3/uL (4.8-10.8)
[2021-08-18 20:11] LABS: Alanine Aminotransferase 12 U/L (0-31); Albumin Level 4.1 g/dL (3.5-5.0); Alkaline Phosphatase 52 U/L (39-117); Anion Gap 11 (12-20); Aspartate Amino Transferase 15 U/L (5-31); Bilirubin Total 0.7 mg/dL (0.0-1.0); Blood Urea Nitrogen 16 mg/dL (9-16); Calcium 9.8 mg/dL (8.4-10.2); Carbon Dioxide 29 mmol/L (22-29); Chloride 105 mmol/L (96-108); Creatinine Clr Calc Pharmacy 69.2; Estimated Glomerular Filt Rate > 60; Glucose Random 88 mg/dL (60-115); Magnesium 2.1 mg/dL (1.6-2.6); Potassium 4.2 mmol/L (3.3-5.1); Sodium 141 mmol/L (135-145); Total Protein 7.1 g/dL (6.5-8.0)
[2021-08-18 21:03] VITALS: BP 98/51; PULSE 53; RESP 16
== END 2021-08-18 21:13 | disposition home or self-care (01) ==
PROVIDERS: Emergency Provider Internal Medicine
DX: G43.909 Migraine, unspecified, not intractable, without status migrainosus (principal); R20.2 Paresthesia of skin; Z79.899 Other long term (current) drug therapy
CPT/HCPCS: 36415; 70450; 80053; 83735; 85025; 99284

== ENCOUNTER → 2021-08-27 11:49 | Outpatient (BNV) | payer MEDICAID, SELFPAY | PROVIDERS: PCP Internal Medicine; Visit Provider Internal Medicine Medical Oncology | DX: D61.818 Other pancytopenia (principal) | CPT/HCPCS: 99204; 99213 ==

== ENCOUNTER 2021-09-09 14:46 | Outpatient (REF) | payer MEDICAID, SELFPAY ==
--- NOTE | ~2021-09-09 | MR_ITS ---
EXAMINATION: MR BRAIN WITHOUT CONTRAST CLINICAL INFORMATION: Left-sided facial numbness. Increased intensity of headache. COMPARISON: Head CT 08/18/2021. TECHNIQUE: Multiplanar, multisequence imaging of the brain was performed without intravenous contrast. FINDINGS: There is no acute infarction, mass, hemorrhage, or extra-axial collection. The ventricles, sulci, and basilar cisterns are normal in size and configuration. The cerebellar tonsils are low-lying with some narrowing of the cervicomedullary CSF. The odontoid is retroflexed. The upper cervical cord is normal in caliber. Mild amount of symmetric T2 hyperintensity is seen within the bilateral inferior cerebellar hemispheres, nonspecific. The flow voids of the major intracranial arteries appear intact. The bones and extracranial soft tissues are unremarkable. The orbital contents appear normal. There is disc osteophyte complex at C4-C5 without significant narrowing of the spinal canal. MR/MR head/brain wo con IMPRESSION: No acute intracranial abnormality identified. 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 Dedicated head CTA recommended for confirmation. Mildly low-lying cerebellar tonsils with some associated narrowing of the cervicomedullary CSF This result was discussed with Loulou Dee RN on 09/10/2021 11:19 AM, and it was ascertained that the content and urgency of the report was understood at the time of direct communication.
== END 2021-09-09 14:47 | disposition home or self-care (01) ==
LOC: HO.MRI 14:46
PROVIDERS: Visit Provider Internal Medicine
DX: G43.109 Migraine with aura, not intractable, without status migrainosus (principal); R20.0 Anesthesia of skin
CPT/HCPCS: 70551

== ENCOUNTER 2021-09-15 10:05 | Outpatient (REF) | payer MEDICAID, SELFPAY ==
--- NOTE | ~2021-09-15 | CT_ITS ---
EXAMINATION: CT ANGIOGRAM HEAD CLINICAL INFORMATION: Evaluate for left MCA bifurcation aneurysm based on prior MRI. COMPARISON: MRI dated 09/09/2021. TECHNIQUE: Test bolus sequences followed by intravenous administration 75 mL of Omnipaque 350. Helical imaging was performed in the axial plane from the mediastinum to the skull vertex. Delayed postcontrast imaging of the head was also performed. The data was processed at the electrical design technologist's workstation for generation of MIP sequences. Three-dimensional volume rendered reformatted images were also generated at an offline 3-D workstation. This CT examination was performed using dose optimization techniques as appropriate, variously including the following: *Automated exposure control *Adjustment of mA and/or kV according to patient size (this includes techniques or standardized protocols for targeted exams where dose is matched to indication/reason for exam; i.e. extremities or head) *Use of iterative reconstruction technique DLP: 2047 mGy-cm. FINDINGS: There is no evidence of acute intracranial hemorrhage or territorial infarction. No abnormal mass effect or midline shift is seen. Kay to white matter differentiation is well preserved. No extra-axial fluid collections are identified. There is no abnormal enhancement. The ventricles are normal in size. There is no abnormal attenuation within the brain parenchyma. The osseous structures and soft tissues are normal. The mastoid air cells are well aerated. There is mild mucosal thickening with small retention cysts in the maxillary sinuses. The intracranial vasculature corresponding to the anterior and posterior circulation is normal. No significant stenoses or occlusions are seen. No aneurysm or vascular malformation is identified. The visualized extracranial vessels appear normal. The venous sinuses opacify normally. CT/CT angio head IMPRESSION: Normal CT angiogram of the head.
[2021-09-15] MEDS: iohexoL 350 MG/ML 100 ML INFUS..BTL IV (11:10)
== END 2021-09-15 10:06 | disposition home or self-care (01) ==
LOC: HO.CT 10:05
PROVIDERS: Visit Provider Internal Medicine
DX: I67.1 Cerebral aneurysm, nonruptured (principal)
CPT/HCPCS: 70496; Q9967

== ENCOUNTER → 2021-09-21 12:29 | Outpatient (BNVA) | payer MEDICAID, SELFPAY | PROVIDERS: PCP Internal Medicine; Referring Provider Internal Medicine; Visit Provider Nurse Practitioner | DX: K21.9 Gastro-esophageal reflux disease without esophagitis (principal); K59.04 Chronic idiopathic constipation; R10.13 Epigastric pain | CPT/HCPCS: 99212 ==

== ENCOUNTER → 2022-03-21 09:17 | Outpatient (BNVA) | payer MEDICAID, SELFPAY | PROVIDERS: PCP Internal Medicine; Visit Provider Nurse Practitioner Family | DX: K59.04 Chronic idiopathic constipation (principal); K21.9 Gastro-esophageal reflux disease without esophagitis; R10.13 Epigastric pain | CPT/HCPCS: 99212 ==

== ENCOUNTER 2022-05-05 11:42 | Outpatient (REF) | payer MEDICAID, SELFPAY ==
[2022-05-05 13:20] LABS: Lipase 27 U/L (8-78); TSH reflex Free T4 1.14 uIU/mL (0.32-4.0)
[2022-05-05 13:31] LABS: Folate 14.2 ng/mL (> or = 4.0); Vitamin B12 510 pg/mL (200-900)
[2022-05-11 16:29] LABS: Vitamin D 25-OH, D2 <4 ng/mL; Vitamin D 25-OH, D3 26 ng/mL; Vitamin D 25-OH, Total 26 ng/mL (30-100)
== END 2022-05-05 11:43 | disposition home or self-care (01) ==
LOC: HO.LAB 11:42
PROVIDERS: PCP Internal Medicine; Visit Provider Nurse Practitioner Family
DX: R10.9 Unspecified abdominal pain (principal); K59.00 Constipation, unspecified; R19.7 Diarrhea, unspecified; E55.9 Vitamin D deficiency, unspecified
CPT/HCPCS: 36415; 82306; 82607; 82746; 83690; 84443

== ENCOUNTER → 2022-05-10 11:14 | Outpatient (BNVA) | payer MEDICAID, SELFPAY | PROVIDERS: PCP Internal Medicine; Visit Provider Nurse Practitioner Family | DX: K59.04 Chronic idiopathic constipation (principal); K21.9 Gastro-esophageal reflux disease without esophagitis; R10.13 Epigastric pain; Z79.899 Other long term (current) drug therapy | CPT/HCPCS: 99212 ==

== ENCOUNTER 2022-07-13 04:35 | Emergency (ER) | payer MEDICAID, SELFPAY ==
--- NOTE | ~2022-07-13 | CT_ITS ---
EXAMINATION: CT ABDOMEN AND PELVIS WITH CONTRAST CLINICAL INFORMATION: Abdominal pain COMPARISON: None TECHNIQUE: Multidetector volumetric images were obtained from the superior aspect of the liver through the pubic symphysis following administration 85 mL of Omnipaque 350 intravenous contrast. Sagittal and coronal reformatted images were obtained on the technologist's workstation. Oral contrast: No This CT examination was performed using dose optimization techniques as appropriate, variously including the following: *Automated exposure control *Adjustment of mA and/or kV according to patient size (this includes techniques or standardized protocols for targeted exams where dose is matched to indication/reason for exam; i.e. extremities or head) *Use of iterative reconstruction technique DLP: 516 mGy-cm FINDINGS: LUNG BASES: Abnormal. There is dense consolidation at the left lung base suspicious for pneumonia. I would recommend a formal chest CT. The right lung base is clear. LIVER, GALLBLADDER, AND BILIARY TREE: The liver is normal in size, shape, and attenuation. No focal hepatic lesion or biliary ductal dilatation is present. The gallbladder is absent. PANCREAS: Unremarkable. SPLEEN: Unremarkable. ADRENAL GLANDS: Unremarkable. KIDNEYS AND URETERS: The kidneys are normal in size, shape, and attenuation. No hydronephrosis, hydroureter, or calculi seen. No perinephric stranding. BLADDER: Unremarkable. GASTROINTESTINAL TRACT: The small and large bowel are unremarkable. The appendix is unremarkable. Small hiatal hernia. ABDOMINAL WALL: No significant hernia is appreciated. LYMPH NODES: Normal. VASCULAR: Mild atherosclerotic change in the right common iliac artery. PELVIC VISCERA: Uterus not visualized. No adnexal masses. No ascites deep in the pelvis. OSSEOUS STRUCTURES: There is multilevel degenerative change in the lower thoracic spine and lower lumbar spine. No fracture. CT/CT abdomen pelvis w IV con IMPRESSION: Left lower lobe pneumonia. Recommend formal chest CT. Fleischner guidelines were followed.
--- NOTE | ~2022-07-13 | XR_ITS ---
EXAMINATION: XR CHEST CLINICAL INFORMATION: Cough. COMPARISON: 07/14/2021 chest radiograph. TECHNIQUE: 2 views of the chest were obtained. FINDINGS: Asymmetric hazy opacities overlie the left lower lung. The right lung appears clear. The heart and mediastinal structures are unremarkable. XR/XR chest 2V IMPRESSION: Asymmetric hazy opacities overlying the left lower lung may be projectional representing soft tissue attenuation however an infiltrate/atelectasis cannot be excluded. If symptoms persist or worsen, short-term repeat radiographic follow-up with PA and lateral views is recommended as clinically indicated.
[2022-07-13 04:48] VITALS: BP 134/51; BP 134/68; PULSE 110; PULSE 112; RESP 16; TEMP 36.6; O2SAT 93; O2SAT 99; BMI 23.5
[2022-07-13 04:55] VITALS: BP 134/51; PULSE 110; RESP 16; TEMP 36.6; O2SAT 93
[2022-07-13 06:18] LABS: Basophils Percent Auto 0.2 % (0-2); Hematocrit 34.4 % (37.0-47.0); Hemoglobin 11.2 g/dl (12.0-16.0); Imm Gran Abs Auto 0.03 X10*3/uL (0.00-0.03); Imm Gran Pct Auto 0.3 % (0.0-0.4); Lymphocytes Absolute Auto 0.4 X10*3/uL (1.2-4.9); Lymphocytes Percent Auto 3.6 % (20-40); MANUAL DIFF FLAG SCAN; Mean Corpuscular HGB Conc 32.6 g/dl (31.0-35.0); Mean Corpuscular Hemoglobin 27.8 pg (27.0-33.0); Mean Corpuscular Volume 85.4 fL (80.0-98.0); Mean Platelet Volume 12.5 fL (9.4-12.3); Monocytes Absolute Auto 0.3 X10*3/uL (0.1-1.2); Monocytes Percent Auto 2.7 % (2-11); Neutrophils Percent Auto 93.2 % (45-73); Platelet Count 154 X10*3/uL (160-400); Red Blood Count 4.03 X10*6/uL (4.20-5.50); Red Cell Distribution Width 14.5 % (11.0-16.0); SCAN SMEAR FLAG 1; White Blood Count 10.7 X10*3/uL (4.8-10.8)
[2022-07-13 06:31] LABS: Alanine Aminotransferase 54 U/L (0-31); Albumin Level 3.8 g/dL (3.5-5.0); Alkaline Phosphatase 51 U/L (39-117); Anion Gap 13 (12-20); Aspartate Amino Transferase 69 U/L (5-31); Bilirubin Total 1.1 mg/dL (0.0-1.0); Blood Urea Nitrogen 17 mg/dL (9-16); Calcium 9.1 mg/dL (8.4-10.2); Carbon Dioxide 23 mmol/L (22-29); Chloride 107 mmol/L (96-108); Creatinine Clr Calc Pharmacy 59.7; Estimated Glomerular Filt Rate 60; Glucose Random 156 mg/dL (60-115); Potassium 3.7 mmol/L (3.3-5.1); Sodium 139 mmol/L (135-145); Total Protein 6.7 g/dL (6.5-8.0)
--- NOTE | 2022-07-13 06:41 | ED_ITS ---
HPI - Nausea/Vomiting/Diarrhea General Chief complaint: Nausea/Vomiting/Diarrhea Stated complaint: Nausea diarrhea Time Seen by Provider: 07/13/22 06:32 Source: patient Limitations: no limitations History of Present Illness HPI Narrative: Patient complaining of 24 hours of nausea vomiting and diarrhea. She states her nephew has a similar syndrome at home. She has diffuse abdominal pain. Positive nausea. Headache. [place] warm at home but no documented fevers. No blood in stool or emesis. Unable to keep down p.o. liquids or solids Related Data Home Medications Medication Instructions Recorded Confirmed acetaminophen 650 mg 650 mg PO Q12H 07/08/20 03/11/22 tablet,extended release (Tylenol 8 Hour) fluticasone propionate 115 2 puff PO DAILY 02/04/21 03/11/22 mcg-salmeterol 21 mcg/actuation HFA inhaler (Advair HFA) ascorbic acid (vitamin C) 500 mg 500 mg PO DAILY 02/26/21 03/11/22 tablet (Vitamin C) fluticasone propionate 50 1 - 2 spray intranasal DAILY PRN 02/26/21 03/11/22 mcg/actuation nasal Congestion spray,suspension amitriptyline 10 mg tablet 1 tab PO BEDTIME 08/27/21 03/11/22 carboxymethylcellulose sodium 0.5 1 drp ophthalmic (eye) QID PRN Dry 08/27/21 03/11/22 % eye drops in a dropperette Eye(S) (Lubricating Plus) clotrimazole 1 % topical cream 1 appl topical DAILY 08/27/21 03/11/22 loratadine 10 mg tablet 1 tab PO DAILY 08/27/21 03/11/22 blood pressure test kit-large #1 ea 09/21/21 03/11/22 ddlysszrwd-qbmzhuzobicre-ghjvckqs 1 tab PO DAILY 09/21/21 03/11/22 50 mg-325 mg-40 mg tablet venlafaxine 37.5 mg 37.5 mg PO DAILY 09/21/21 03/11/22 capsule,extended release 24 hr Previous Rx's Medication Instructions Recorded lisinopril 2.5 mg tablet 2.5 mg PO DAILY #30 tabs 03/11/20 albuterol sulfate 90 mcg/actuation 1 inh inhalation QID PRN shortness 07/17/20 aerosol inhaler of breath or wheezing #6.7 grams cholecalciferol (vitamin D3) 50 50 mcg PO DAILY #30 tabs 05/02/21 mcg (2,000 unit) tablet tmxmyveizb-qqalqywijxvrm-prnqucqi 1 cap PO Q6H PRN headache #20 caps 08/18/21 50 mg-300 mg-40 mg capsule (Fioricet) cyanocobalamin (vitamin B-12) 1,000 mcg PO DAILY #60 tabs 12/16/21 1,000 mcg tablet (Vitamin B-12) ferrous sulfate 325 mg (65 mg 325 mg PO DAILY #60 tabs 12/16/21 iron) tablet (Iron (ferrous sulfate)) bisacodyl 5 mg tablet,delayed 10 mg PO BEDTIME #180 tabs 03/21/22 release (Dulcolax (bisacodyl)) dexlansoprazole 60 mg 60 mg PO DAILY 30 days #90 caps 05/10/22 capsule,biphase delayed release (Dexilant) docusate sodium 100 mg capsule 200 mg PO DAILY #180 caps 05/10/22 azithromycin 250 mg tablet See Rx Instructions PO .COMPLEX #6 07/13/22 tabs ondansetron 4 mg disintegrating 4 mg PO Q8H PRN nausea and 07/13/22 tablet vomiting #14 tabs Allergies Allergy/AdvReac Type Severity Reaction Status Date / Time Penicillins [PENICILLINS] Allergy Intermediate RASH Verified 05/10/22 11:38 Hydrocodone-Acetaminophen Allergy Unknown tachycardia Uncoded 03/11/22 13:25 narcotics AdvReac Mild heart Uncoded 03/11/22 13:25 palpitations Review of Systems Constitutional: Comments: Feeling warm without documented fevers. Positive chills Cardiovascular: Comments: No chest pain Respiratory: Comments: Positive cough. No dyspnea. No sputum Gastrointestinal: Gastrointestinal: Reports as per HPI Integumentary/Breasts: Comments: No rash Neurologic: Comments: Generalized weakness without focal weakness PMFSH Past Medical History Medical History Arthritis High cholesterol HTN (hypertension) Surgical History History of cholecystectomy History of esophagogastroduodenoscopy (EGD) Hx of colonoscopy (~2019) Family History Family History Mother Diabetes HTN (hypertension) Paternal Aunt Cancer of neck Paternal Uncle Cancer of neck Social History Social History Household Members: Children Housing: Apartment Are you a primary critical care physician to a significant other at home: No Do you presently have visiting nurse or other home services: No Alcohol intake: never Patient Tobacco Use Status: Never used Tobacco Smoked in Last 30 Days: No Use of substances other than those prescribed or required for medical reasons: No Advance Directives: No Advance Directives Information Provided: No Patient : No service: No Current occupational status: disabled Physical Exam Vital Signs: Vital Signs: Last Vital Signs Temp 97.0 F 07/13/22 08:02 Pulse 109 H 07/13/22 09:03 Resp 16 07/13/22 09:03 BP 113/55 L 07/13/22 08:02 Pulse Ox 91 L 07/13/22 08:02 O2 Del Method 07/13/22 08:02 BMI result Body Mass Index 23.5 Const: Other: Awake. Alert. Appears uncomfortable. Appears fatigued. HEENT: Other: Mucosa dry Resp: Other: Clear and equal bilaterally. No respiratory distress Cardio: Other: Mildly tachycardic without murmurs rubs or gallops GI: Other: Abdomen is soft and nondistended. Mild diffuse tenderness without guarding or rebound. Slightly more on the right side versus left side. No focal upper or lower point tenderness Skin: Other: Warm and dry without rash Neuro: Other: No gross focal neuro deficits Medications Administered Discontinued Medications Generic Name Dose Route Start Last Admin Trade Name Sudhirq PRN Reason Stop Dose Admin Albuterol Sulfate 2 puff 07/13/22 08:04 07/13/22 08:59 Albuterol Sulfate 90 Mcg 8 Gm Inhaler INHALE 07/13/22 08:05 2 puff ONCE ONE Administration Sodium Chloride 1,000 mls @ 999 mls/hr 07/13/22 06:45 07/13/22 08:48 Ns IV 07/13/22 07:45 Infused .Q1H1M ANSELMO Infusion Ceftriaxone Sodium 1 gm/ 50 mls @ 100 mls/hr 07/13/22 09:14 07/13/22 09:59 Sodium Chloride IV 07/13/22 09:43 Infused ONCE ONE Infusion Iohexol 100 ml 07/13/22 09:00 07/13/22 09:01 Iohexol 350 Mg/Ml 100 Ml Infus..Btl IV 07/13/22 09:01 85 ml ONCE ONE Administration Ketorolac Tromethamine 30 mg 07/13/22 06:39 07/13/22 07:34 Ketorolac Tromethamine 15 Mg/Ml Vial IVPUSH 07/13/22 06:40 30 mg ONCE ONE Administration Ondansetron HCl 4 mg 07/13/22 06:39 07/13/22 07:34 Ondansetron Hcl 4 Mg/2 Ml Vial IVPUSH 07/13/22 06:40 4 mg ONCE ONE Administration Pantoprazole Sodium 40 mg 07/13/22 08:04 07/13/22 08:16 Pantoprazole Sodium 40 Mg/10 Ml Vial IVPUSH 07/13/22 08:05 40 mg ONCE ONE Administration Medical Decision Making Medical Decision Making MDM Narrative: Patient with syndrome most consistent with gastroenteritis with similar syndrome and family member at home. She appears dehydrated. She complains of headache. Will treat with IV fluids, IV Toradol, IV Zofran. Await lab work. 06:46. CBC is still pending. Chemistries show BUN of 17 with a creatinine of 0.95. Otherwise electrolytes are normal. Transaminases mildly elevated. 10:14. CT scan of abdomen shows left lower lobe pneumonia but no intra-abdominal abnormalities. Chest x-ray likewise shows pneumonia. Treated with ceftriaxone IV. Will add Zithromax as well. Will re-evaluate respiratory status. She did desaturate to 88% per the sterile instrument technician prior to treatment with albuterol. 10:38. Patient is feeling much better after treatment. She is able ambulate in the emergency department without desaturation. She states she feels ready to go home. Will discharge home with final diagnosis of pneumonia and vomiting Lab Data 07/13/22 06:14 07/13/22 06:14 Labs: Lab Results 07/13/22 07/13/22 07/13/22 Range/Units 06:14 06:14 07:31 WBC 10.7 (4.8-10.8) X10*3/uL RBC 4.03 L (4.20-5.50) X10*6/uL Hgb 11.2 L (12.0-16.0) g/dl Hct 34.4 L (37.0-47.0) % MCV 85.4 (80.0-98.0) fL MCH 27.8 (27.0-33.0) pg MCHC 32.6 (31.0-35.0) g/dl RDW 14.5 (11.0-16.0) % Plt Count 154 L (160-400) X10*3/uL MPV 12.5 H (9.4-12.3) fL Immature Gran % (Auto) 0.3 (0.0-0.4) % Neut % (Auto) 93.2 H (45-73) % Lymph % (Auto) 3.6 L (20-40) % [place] % (Auto) 2.7 (2-11) % Eos % (Auto) 0.0 (0-4) % Baso % (Auto) 0.2 (0-2) % Lymph # (Auto) 0.4 L (1.2-4.9) X10*3/uL [place] # (Auto) 0.3 (0.1-1.2) X10*3/uL Eos # (Auto) 0.0 (0.0-0.4) X10*3/uL Baso # (Auto) 0.0 (0.0-0.2) X10*3/uL Abs Immat Gran (auto) 0.03 (0.00-0.03) X10*3/uL Absolute Neuts (auto) 10.0 H (2.0-8.3) x10*3/uL Absolute Nucleated RBC 0.000 (0.0-0.012) X10*3/uL Nucleated RBC % (auto) 0.0 (0.0-0.2) /100WBC Smear Tech's Comments VERIFIED Sodium 139 (135-145) mmol/L Potassium 3.7 (3.3-5.1) mmol/L Chloride 107 (96-108) mmol/L Carbon Dioxide 23 (22-29) mmol/L Anion Gap 13 (12-20) BUN 17 H (9-16) mg/dL Creatinine 0.95 (0.5-1.4) mg/dL Estim Creat Clear Calc 59.7 Estimated GFR 60 Random Glucose 156 H (60-115) mg/dL Calcium 9.1 (8.4-10.2) mg/dL Total Bilirubin 1.1 H (0.0-1.0) mg/dL AST 69 H (5-31) U/L ALT 54 H (0-31) U/L Alkaline Phosphatase 51 (39-117) U/L Total Protein 6.7 (6.5-8.0) g/dL Albumin 3.8 (3.5-5.0) g/dL Lipase (8-78) U/L Influenza Type A (PCR) NEGATIVE (Negative) Influenza Type B (PCR) NEGATIVE (Negative) RSV RNA Qual (PCR) NEGATIVE (Negative) SARS-CoV-2 RNA (RT-PCR) NEGATIVE (Negative) 07/13/22 Range/Units 07:31 WBC (4.8-10.8) X10*3/uL RBC (4.20-5.50) X10*6/uL Hgb (12.0-16.0) g/dl Hct (37.0-47.0) % MCV (80.0-98.0) fL MCH (27.0-33.0) pg MCHC (31.0-35.0) g/dl RDW (11.0-16.0) % Plt Count (160-400) X10*3/uL MPV (9.4-12.3) fL Immature Gran % (Auto) (0.0-0.4) % Neut % (Auto) (45-73) % Lymph % (Auto) (20-40) % [place] % (Auto) (2-11) % Eos % (Auto) (0-4) % Baso % (Auto) (0-2) % Lymph # (Auto) (1.2-4.9) X10*3/uL [place] # (Auto) (0.1-1.2) X10*3/uL Eos # (Auto) (0.0-0.4) X10*3/uL Baso # (Auto) (0.0-0.2) X10*3/uL Abs Immat Gran (auto) (0.00-0.03) X10*3/uL Absolute Neuts (auto) (2.0-8.3) x10*3/uL Absolute Nucleated RBC (0.0-0.012) X10*3/uL Nucleated RBC % (auto) (0.0-0.2) /100WBC Smear Tech's Comments Sodium (135-145) mmol/L Potassium (3.3-5.1) mmol/L Chloride (96-108) mmol/L Carbon Dioxide (22-29) mmol/L Anion Gap (12-20) BUN (9-16) mg/dL Creatinine (0.5-1.4) mg/dL Estim Creat Clear Calc Estimated GFR Random Glucose (60-115) mg/dL Calcium (8.4-10.2) mg/dL Total Bilirubin (0.0-1.0) mg/dL AST (5-31) U/L ALT (0-31) U/L Alkaline Phosphatase (39-117) U/L Total Protein (6.5-8.0) g/dL Albumin (3.5-5.0) g/dL Lipase 13 (8-78) U/L Influenza Type A (PCR) (Negative) Influenza Type B (PCR) (Negative) RSV RNA Qual (PCR) (Negative) SARS-CoV-2 RNA (RT-PCR) (Negative) Discharge Plan Discharge Clinical Impression: Pneumonia, Vomiting, Acute dehydration Patient Disposition: Home, Self-Care Instructions: Dehydration (ED), Acute Nausea and Vomiting (ED), Pneumonia (ED) Prescriptions: New ondansetron 4 mg tablet,disintegrating 4 mg PO Q8H PRN (Reason: nausea and vomiting) Qty: 14 0RF azithromycin 250 mg tablet See Rx Instructions .ROUTE .COMPLEX Qty: 6 0RF Rx Instructions: For 250 mg dose pack: take 500 mg today (day 1), then 250 mg for 4 days (days 2-5) No Action lisinopril 2.5 mg tablet 2.5 mg PO DAILY Qty: 30 3RF cholecalciferol (vitamin D3) 50 mcg (2,000 unit) tablet 50 mcg PO DAILY Qty: 30 11RF albuterol sulfate 90 mcg/actuation HFA aerosol inhaler 1 inh inhalation QID PRN (Reason: shortness of breath or wheezing) Qty: 6.7 0RF vhovddqllv-ucjtppazkvymo-zlec [Fioricet] 50-300-40 mg capsule 1 cap PO Q6H PRN (Reason: headache) Qty: 20 0RF amitriptyline 10 mg tablet 1 tab PO BEDTIME clotrimazole 1 % cream 1 appl topical DAILY loratadine 10 mg tablet 1 tab PO DAILY carboxymethylcellulose sodium [Lubricating Plus] 0.5 % dropperette 1 drp ophthalmic (eye) QID PRN (Reason: Dry Eye(S)) cyanocobalamin (vitamin B-12) [Vitamin B-12] 1,000 mcg Tablet 1,000 mcg PO DAILY Qty: 60 0RF ferrous sulfate [Iron (ferrous sulfate)] 325 mg (65 mg iron) Tablet 325 mg PO DAILY Qty: 60 0RF acetaminophen [Tylenol 8 Hour] 650 mg tablet extended release 650 mg PO Q12H Advair HFA 115-21 mcg/actuation HFA aerosol inhaler 2 puff PO DAILY fluticasone propionate 50 mcg/actuation spray,suspension 1 - 2 spray intranasal DAILY PRN (Reason: Congestion) ascorbic acid (vitamin C) [Vitamin C] 500 mg tablet 500 mg PO DAILY bisacodyl [Dulcolax (bisacodyl)] 5 mg tablet,delayed release (DR/EC) 10 mg PO BEDTIME Qty: 180 4RF dzpxsitxvn-eurfbcxssfnnb-qywu 50-325-40 mg tablet 1 tab PO DAILY venlafaxine 37.5 mg capsule,extended release 24hr 37.5 mg PO DAILY (DME) blood pressure test kit-large Kit See Rx Instructions .ROUTE DAILY Qty: 1 Rx Instructions: As directed dexlansoprazole [Dexilant] 60 mg capsule,biphase delayed releas 60 mg PO DAILY 30 Days Qty: 90 3RF docusate sodium 100 mg capsule 200 mg PO DAILY Qty: 180 1RF
--- NOTE | 2022-07-13 07:04 | PC.NURSE ---
assumed care of patient, patient resting comfortably in bed, VSS, plan for IV, labs, meds
[2022-07-13] MEDS: Ketorolac Tromethamine 15 MG/ML VIAL 30 MG IVPUSH (07:34)
[2022-07-13] MEDS: ondansetron HCL 4 MG/2 ML VIAL IVPUSH (07:34)
[2022-07-13] MEDS: 0.9 % Sodium Chloride 1,000 ML 999 ML IV (07:35)
[2022-07-13 07:48] LABS: Lipase 13 U/L (8-78)
[2022-07-13 07:51] LABS: SLIDE REVIEW VERIFIED
[2022-07-13 08:02] VITALS: BP 113/55; PULSE 110; RESP 18; TEMP 36.1; O2SAT 91
[2022-07-13] MEDS: Pantoprazole Sodium 40 MG/10 ML VIAL IVPUSH (08:16)
[2022-07-13] MEDS: Albuterol Sulfate 90 MCG 8 GM INHALER 2 PUFF INHALE (08:59)
[2022-07-13] MEDS: iohexoL 350 MG/ML 100 ML INFUS..BTL IV (09:01)
[2022-07-13 09:03] VITALS: PULSE 109; RESP 16
[2022-07-13 09:04] LABS: Influenza A PCR NEGATIVE (Negative); Influenza B PCR NEGATIVE (Negative); Resp Syncy Virus RNA Qual PCR NEGATIVE (Negative); SARS COV2 PCR INHOUSE NEGATIVE (Negative)
[2022-07-13] MEDS: cefTRIAXone sodium 1 GM in 0.9 % Sodium Chloride 50 ML IV (09:34)
--- NOTE | 2022-07-13 10:24 | PC.NURSE ---
ambulatory sat 90-92%
== END 2022-07-13 10:56 | disposition home or self-care (01) ==
PROVIDERS: Emergency Provider Emergency Medicine
DX: J18.9 Pneumonia, unspecified organism (principal); R11.10 Vomiting, unspecified; E86.0 Dehydration; Z20.822 Contact with and (suspected) exposure to COVID-19; Z20.828 Contact with and (suspected) exposure to other viral communicable diseases; I10 Essential (primary) hypertension; E78.5 Hyperlipidemia, unspecified; Z79.899 Other long term (current) drug therapy
CPT/HCPCS: 0241U; 36415; 71046; 74177; 80053; 83690; 85025; 87040; 94640; 96361; 96365; 96375; 99284; 99285; J0696; J1885; J2405; Q9967

== ENCOUNTER 2022-08-08 09:57 | Emergency (ER) | payer MEDICAID, SELFPAY ==
--- NOTE | ~2022-08-08 | XR_ITS ---
EXAMINATION: XR CHEST CLINICAL INFORMATION: Cough COMPARISON: X-ray 07/13/2022 TECHNIQUE: Frontal view of the chest was obtained. FINDINGS: Unchanged cardiac and mediastinal silhouette. Mild left basilar hazy opacities, improved from previous. No dense right lung consolidation.. No effusion, edema or pneumothorax. XR/XR chest 1V IMPRESSION: Mild left basilar opacities may reflect atelectasis or infiltrate.
[2022-08-08 10:02] VITALS: BP 131/47; PULSE 88; RESP 16; TEMP 36.7; O2SAT 96; BMI 23.7
--- NOTE | 2022-08-08 10:46 | ED_ITS ---
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 Patient states that she is still having a cough and feels like she is not moving air as well as she could be. Patient denies any dizziness, lightheadedness, abdominal pain, nausea, vomiting, fever, chills, blurry vision, double vision, loss of vision, chest pain, back pain, night sweats, pain with urination, increased urinary frequency, increased urinary urgency, blood in her urine or stool, syncope or a near syncopal episode, recent trauma or falls, bowel incontinence, bladder incontinence, bowel retention, bladder retention, or any other complaints at this time. Onset (ago): week(s) Severity: mild Severity scale (1-10): 2 Relieving factors: none Exacerbating factors: none Associated symptoms: cough Treatments prior to arrival: other (inhaler and ABX as previously perscribed) Related Data Home Medications Medication Instructions Recorded Confirmed acetaminophen 650 mg 650 mg PO Q12H 07/08/20 03/11/22 tablet,extended release (Tylenol 8 Hour) fluticasone propionate 115 2 puff PO DAILY 02/04/21 03/11/22 mcg-salmeterol 21 mcg/actuation HFA inhaler (Advair HFA) ascorbic acid (vitamin C) 500 mg 500 mg PO DAILY 02/26/21 03/11/22 tablet (Vitamin C) fluticasone propionate 50 1 - 2 spray intranasal DAILY PRN 02/26/21 03/11/22 mcg/actuation nasal Congestion spray,suspension amitriptyline 10 mg tablet 1 tab PO BEDTIME 08/27/21 03/11/22 carboxymethylcellulose sodium 0.5 1 drp ophthalmic (eye) QID PRN Dry 08/27/21 03/11/22 % eye drops in a dropperette Eye(S) (Lubricating Plus) clotrimazole 1 % topical cream 1 appl topical DAILY 08/27/21 03/11/22 loratadine 10 mg tablet 1 tab PO DAILY 08/27/21 03/11/22 blood pressure test kit-large #1 ea 09/21/21 03/11/22 oavviqjhnp-gimjzklnisxtq-iohnszer 1 tab PO DAILY 09/21/21 03/11/22 50 mg-325 mg-40 mg tablet venlafaxine 37.5 mg 37.5 mg PO DAILY 09/21/21 03/11/22 capsule,extended release 24 hr Previous Rx's Medication Instructions Recorded lisinopril 2.5 mg tablet 2.5 mg PO DAILY #30 tabs 03/11/20 albuterol sulfate 90 mcg/actuation 1 inh inhalation QID PRN shortness 07/17/20 aerosol inhaler of breath or wheezing #6.7 grams cholecalciferol (vitamin D3) 50 50 mcg PO DAILY #30 tabs 05/02/21 mcg (2,000 unit) tablet hvhgywttdu-lolqsbhqkkujc-blsblhbx 1 cap PO Q6H PRN headache #20 caps 08/18/21 50 mg-300 mg-40 mg capsule (Fioricet) cyanocobalamin (vitamin B-12) 1,000 mcg PO DAILY #60 tabs 12/16/21 1,000 mcg tablet (Vitamin B-12) ferrous sulfate 325 mg (65 mg 325 mg PO DAILY #60 tabs 12/16/21 iron) tablet (Iron (ferrous sulfate)) bisacodyl 5 mg tablet,delayed 10 mg PO BEDTIME #180 tabs 03/21/22 release (Dulcolax (bisacodyl)) dexlansoprazole 60 mg 60 mg PO DAILY 30 days #90 caps 05/10/22 capsule,biphase delayed release (Dexilant) docusate sodium 100 mg capsule 200 mg PO DAILY #180 caps 05/10/22 azithromycin 250 mg tablet See Rx Instructions PO .COMPLEX #6 07/13/22 tabs ondansetron 4 mg disintegrating 4 mg PO Q8H PRN nausea and 07/13/22 tablet vomiting #14 tabs doxycycline hyclate 100 mg tablet 100 mg PO BID 7 days #14 tabs 08/08/22 prednisone 20 mg tablet 20 mg PO DAILY 7 days #7 tabs 08/08/22 Allergies Allergy/AdvReac Type Severity Reaction Status Date / Time Penicillins [PENICILLINS] Allergy Intermediate RASH Verified 05/10/22 11:38 Hydrocodone-Acetaminophen Allergy Unknown tachycardia Uncoded 03/11/22 13:25 narcotics AdvReac Mild heart Uncoded 03/11/22 13:25 palpitations Review of Systems Constitutional: Constitutional: Reports no additional constitutional complaints, Denies chills, Denies fever(s) and Denies night sweats Eyes: Eyes: Reports no additional eye complaints, Denies blurry vision, Denies change in vision, Denies diplopia, Denies eye discharge, Denies loss of vision and Denies eye pain ENT: Denies dizziness Cardiovascular: Cardiovascular: Reports no additional cardiovascular complaints, Denies chest pain, Denies lightheadedness, Denies Loss of Consciousness and Denies dyspnea Respiratory: Respiratory: Reports no additional respiratory complaints, Reports cough and Denies dyspnea Gastrointestinal: Gastrointestinal: Reports no additional gastrointestinal complaints, Denies abdominal pain, Denies melena, Denies hematochezia, Denies change in bowel habits and Denies change in stool character Genitourinary: Genitourinary: Denies hematuria, Denies urinary frequency, Denies dysuria, Denies urinary incontinence, Denies urinary hesitancy and Denies urinary urgency Musculoskeletal: Musculoskeletal: Reports no additional musculoskeletal complaints, Denies numbness and Denies tingling Neurologic: Denies dizziness, Denies loss of vision, Denies numbness and Denies tingling Psychiatric: Psychiatric: Reports no additional psychiatric complaints Endocrine: Endocrine: Reports no additional endocrine complaints Hematologic/Lymphatic: Hematologic/Lymphatic: Reports no additional hematologic/lymphatic complaints Allergic/Immunologic: Allergic/Immunologic: Reports no additional allergic/immunologic complaints [facility] Past Medical History Attestation statement: The following information was validated with the patient. Source: old records reviewed and nursing notes reviewed Medical History Arthritis High cholesterol HTN (hypertension) Surgical History History of cholecystectomy History of esophagogastroduodenoscopy (EGD) Hx of colonoscopy (~2019) Family History Family History Mother Diabetes HTN (hypertension) Paternal Aunt Cancer of neck Paternal Uncle Cancer of neck Social History Social History Household Members: Children Housing: Apartment Are you a primary tree care foreman to a significant other at home: No Do you presently have visiting nurse or other home services: No Alcohol intake: never Patient Tobacco Use Status: Never used Tobacco Advance Directives: No Advance Directives Information Provided: Yes service: No Current occupational status: disabled Physical Exam ED Vital Signs: Vital Signs - 24 hr 08/08/22 10:02 08/08/22 11:12 08/08/22 11:48 Temperature 98.1 F Pulse Rate 88 68 72 Respiratory Rate 16 18 18 Blood Pressure 131/47 L 128/58 L Pulse Oximetry 96 97 Oxygen Delivery Method Room Air Room Air BMI result Body Mass Index 23.7 Const General: cooperative, no acute distress, alert and awake Nutritional Appearance: well nourished Orientation/consciousness: patient oriented x3 Limitations: no limitations HENMT Head: Yes normal to inspection and Yes atraumatic Ears: hearing grossly normal bilaterally and external ears normal General nose exam: Normal external nose present, no nasal discharge noted and no epistaxis Face and sinus: Yes normal facial exam, No abrasion and No laceration Mouth: Normal oral and palatal mucosa present, no drooling and no muffled voice Eyes General: appearance normal, both eyes and all related structures Periorbital: periorbital findings normal Eyelids: Yes eyelids normal Conjunctivae: conjunctivae normal Pupils: Equal, round and reactive pupils present EOM: EOMs intact bilaterally Neck Neck: Yes normal visual inspection, Yes full ROM and Yes no lymphadenopathy Chest Chest palpation & inspection: normal inspection of the chest Resp Effort & Inspection: normal respiratory effort and able to speak in complete sentences Auscultation: diminished lung sounds diffuse Cardio Rate: regular rate Rhythm: regular rhythm GI Inspection: Yes normal to inspection Neuro General: patient oriented x3 and moves all extremities Cranial nerves: Yes Equal, round and reactive pupils present Cognition (Neuro): normal cognition Motor exam (neuro): 5/5 motor strength present throughout Sensory Exam: Normal double simultaneous stimulation for sensation Coordination: qgkhya-tw-ftiv test normal Extrem General: Yes normal to inspection, Yes full ROM and Yes capillary refill normal Psych Appearance: grossly normal Mental Status: mental status grossly normal Affect: normal affect Attitude: cooperative Thought process: Normal thought process present Thought content: Normal thought content present Insight: Good insight present (Psych) Medications Administered Discontinued Medications Generic Name Dose Route Start Last Admin Trade Name Freq PRN Reason Stop Dose Admin Albuterol Sulfate 4 puff 08/08/22 11:36 08/08/22 11:45 Albuterol Sulfate 90 Mcg 8 Gm Inhaler INHALE 08/08/22 11:37 4 puff ONCE ONE Administration Methylprednisolone Sodium Succinate 60 mg 08/08/22 11:35 08/08/22 12:07 Methylprednisolone Sod Succ 125 Mg/2 Ml Vial IM 08/08/22 11:36 60 mg ONCE ONE Administration Medical Decision Making Medical Decision Making [facility] Narrative: Patient is a 61 year old assigned female at with a history of asthma, GERD, and recent PNA presenting to the emergency department today with continued cough and concern of still having PNA. Patient's physical exam showed diminished lung sounds throughout but was otherwise unremarkable. Patient's chest x-ray showed possible left basilar infiltrate vs. atelectasis. Given the patient's presentation, I am more apt to believe this to be atelectasis, however, given the patient's history of recent infiltrate, will cover with ABX against atypical infections. I explained my physical exam findings as well as all test results to the patient. I answered all questions asked by the patient. Patient received albuterol while in the department along with education from respiratory therapy on how to properly use said inhaler + spacer, which she stated helped her symptoms significantly. I stressed the importance of the patient taking her medication as prescribed. I stressed the importance of the patient following up with her primary care provider. I stressed the importance of the patient returning to the emergency department immediately if her symptoms were to worsen or if she were to develop any dizziness, shortness of breath, difficulty breathing, chest pain, blurry vision, loss of vision, nausea, vomiting, abdominal pain, fever, chills, back pain, or any other complaints. Patient verbalized agreement and understanding with this treatment plan and discharge. Differential Diagnosis Differential Diagnoses: The differential diagnosis associated with the presentation includes asthma exacerbation, PNA Independent Interpretation I performed an independent interpretation of an: Plain X-Ray Interpretation: My interpretation is in agreement with the radiologist's impression of this imaging study. EXAMINATION: XR CHEST CLINICAL INFORMATION: Cough COMPARISON: X-ray 07/13/2022 TECHNIQUE: Frontal view of the chest was obtained. FINDINGS: Unchanged cardiac and mediastinal silhouette. Mild left basilar hazy opacities, improved from previous. No dense right lung consolidation.. No effusion, edema or pneumothorax. XR/XR chest 1V IMPRESSION: Mild left basilar opacities may reflect atelectasis or infiltrate. Dictated By: Rip Chacon MD Signed By: Electronically signed by Rip Chacon MD 08/08/22 1135 Chronic Conditions Patient?s care impacted by: Other (asthma) Discharge Plan Discharge Clinical Impression: Asthma exacerbation Patient Disposition: Home, Self-Care Instructions: Asthma (DC) Additional Instructions: Follow up with your primary care provider. Return to the emergency department immediately if your symptoms worsen or if you develop any dizziness, shortness of breath, difficulty breathing, chest pain, blurry vision, loss of vision, nausea, vomiting, abdominal pain, fever, chills, back pain, or any other complaints. Jeannie un seguimiento con silva proveedor de atenci?n primaria. Regrese al departamento de emergencias de inmediato si maico s?ntomas empeoran o si presenta mareos, falta de aire, dificultad para respirar, dolor de pecho, visi?n borrosa, p?rdida de la visi?n, n?useas, v?mitos, dolor abdominal, fiebre, escalofr?os, dolor de espalda o cualquier otras quejas. Prescriptions: New prednisone 20 mg tablet 20 mg PO DAILY 7 Days Qty: 7 0RF doxycycline hyclate 100 mg tablet 100 mg PO BID 7 Days Qty: 14 0RF No Action lisinopril 2.5 mg tablet 2.5 mg PO DAILY Qty: 30 3RF cholecalciferol (vitamin D3) 50 mcg (2,000 unit) tablet 50 mcg PO DAILY Qty: 30 11RF albuterol sulfate 90 mcg/actuation HFA aerosol inhaler 1 inh inhalation QID PRN (Reason: shortness of breath or wheezing) Qty: 6.7 0RF dcyahdkpyp-wafvihtaxcndu-rivt [Fioricet] 50-300-40 mg capsule 1 cap PO Q6H PRN (Reason: headache) Qty: 20 0RF amitriptyline 10 mg tablet 1 tab PO BEDTIME clotrimazole 1 % cream 1 appl topical DAILY loratadine 10 mg tablet 1 tab PO DAILY carboxymethylcellulose sodium [Lubricating Plus] 0.5 % dropperette 1 drp ophthalmic (eye) QID PRN (Reason: Dry Eye(S)) cyanocobalamin (vitamin B-12) [Vitamin B-12] 1,000 mcg Tablet 1,000 mcg PO DAILY Qty: 60 0RF ferrous sulfate [Iron (ferrous sulfate)] 325 mg (65 mg iron) Tablet 325 mg PO DAILY Qty: 60 0RF ondansetron 4 mg tablet,disintegrating 4 mg PO Q8H PRN (Reason: nausea and vomiting) Qty: 14 0RF azithromycin 250 mg tablet See Rx Instructions .ROUTE .COMPLEX Qty: 6 0RF Rx Instructions: For 250 mg dose pack: take 500 mg today (day 1), then 250 mg for 4 days (days 2-5) acetaminophen [Tylenol 8 Hour] 650 mg tablet extended release 650 mg PO Q12H Advair HFA 115-21 mcg/actuation HFA aerosol inhaler 2 puff PO DAILY fluticasone propionate 50 mcg/actuation spray,suspension 1 - 2 spray intranasal DAILY PRN (Reason: Congestion) ascorbic acid (vitamin C) [Vitamin C] 500 mg tablet 500 mg PO DAILY bisacodyl [Dulcolax (bisacodyl)] 5 mg tablet,delayed release (DR/EC) 10 mg PO BEDTIME Qty: 180 4RF jikpruufhm-younxeummrrxi-fqqo 50-325-40 mg tablet 1 tab PO DAILY venlafaxine 37.5 mg capsule,extended release 24hr 37.5 mg PO DAILY (DME) blood pressure test kit-large Kit See Rx Instructions .ROUTE DAILY Qty: 1 Rx Instructions: As directed dexlansoprazole [Dexilant] 60 mg capsule,biphase delayed releas 60 mg PO DAILY 30 Days Qty: 90 3RF docusate sodium 100 mg capsule 200 mg PO DAILY Qty: 180 1RF Referrals: Gabriela Guardado FNP [Primary Care Provider] - Interventions: ED Discharge Assessment Last Done: 08/08/22 12:08 Discharge Date/Time: 08/08/22 12:09 Print Language: English
[2022-08-08 11:12] VITALS: BP 128/58; PULSE 68; RESP 18; O2SAT 97
[2022-08-08] MEDS: Albuterol Sulfate 90 MCG 8 GM INHALER 4 PUFF INHALE (11:45)
[2022-08-08 11:48] VITALS: PULSE 72; RESP 18; O2SAT 96
[2022-08-08] MEDS: methylPREDNISolone Sod Succ 125 MG/2 ML VIAL 60 MG IM (12:07)
== END 2022-08-08 12:09 | disposition home or self-care (01) ==
PROVIDERS: Emergency Provider Student in an Organized Health Care Education/Training Program; PCP Registered Nurse
DX: J45.901 Unspecified asthma with (acute) exacerbation (principal); R05.9 Cough, unspecified; R07.89 Other chest pain; Z79.899 Other long term (current) drug therapy
CPT/HCPCS: 71045; 94640; 96372; 99283; 99284; J2930

== ENCOUNTER → 2022-09-06 09:54 | Outpatient (BNVA) | payer MEDICAID, SELFPAY | PROVIDERS: PCP Registered Nurse; Visit Provider Nurse Practitioner Family | DX: K21.9 Gastro-esophageal reflux disease without esophagitis (principal); K59.04 Chronic idiopathic constipation; R10.13 Epigastric pain | CPT/HCPCS: 99212 ==

== ENCOUNTER 2022-11-07 20:47 | Outpatient (REF) | payer MEDICAID, SELFPAY ==
[2022-11-18 18:29] LABS: Pancreatic Elastase-1 >500 mcg/g
== END 2022-11-07 20:48 | disposition home or self-care (01) ==
LOC: HO.LNP 20:47
PROVIDERS: Visit Provider Nurse Practitioner Family
DX: R10.9 Unspecified abdominal pain (principal); K21.9 Gastro-esophageal reflux disease without esophagitis
CPT/HCPCS: 82656; 87338

== ENCOUNTER → 2022-11-10 10:23 | Outpatient (BNVA) | payer MEDICAID, SELFPAY | PROVIDERS: PCP Registered Nurse; Visit Provider Nurse Practitioner Family | DX: K21.9 Gastro-esophageal reflux disease without esophagitis (principal); K59.04 Chronic idiopathic constipation; R14.0 Abdominal distension (gaseous); R10.9 Unspecified abdominal pain | CPT/HCPCS: 99212 ==

== ENCOUNTER 2022-12-21 19:06 | Outpatient (REF) | payer MEDICAID, SELFPAY ==
[2022-12-22 09:28] LABS: Influenza A PCR NEGATIVE (Negative); Influenza B PCR NEGATIVE (Negative); Resp Syncy Virus RNA Qual PCR NEGATIVE (Negative); SARS COV2 PCR INHOUSE NEGATIVE (Negative)
== END 2022-12-21 19:07 | disposition home or self-care (01) ==
LOC: HO.HHCLNP 19:06
PROVIDERS: Visit Provider Internal Medicine
DX: Z20.822 Contact with and (suspected) exposure to COVID-19 (principal); J02.9 Acute pharyngitis, unspecified
CPT/HCPCS: 0241U; 87070

== ENCOUNTER 2023-01-06 18:33 | Outpatient (REF) | payer MEDICAID, SELFPAY ==
[2023-01-06 19:27] LABS: Influenza A PCR NEGATIVE (Negative); Influenza B PCR NEGATIVE (Negative); Resp Syncy Virus RNA Qual PCR NEGATIVE (Negative); SARS COV2 PCR INHOUSE NEGATIVE (Negative)
== END 2023-01-06 18:34 | disposition home or self-care (01) ==
LOC: HO.LNP 18:33
PROVIDERS: Visit Provider Emergency Medicine
DX: Z20.822 Contact with and (suspected) exposure to COVID-19 (principal); R68.89 Other general symptoms and signs
CPT/HCPCS: 0241U; 87070

== ENCOUNTER 2023-03-24 17:30 | Outpatient (REF) | payer MEDICAID, SELFPAY ==
[2023-03-24 18:23] LABS: Influenza A PCR NEGATIVE (Negative); Influenza B PCR NEGATIVE (Negative); Resp Syncy Virus RNA Qual PCR NEGATIVE (Negative); SARS COV2 PCR INHOUSE NEGATIVE (Negative)
== END 2023-03-24 17:31 | disposition home or self-care (01) ==
LOC: HO.HHCLNP 17:30
PROVIDERS: Visit Provider Emergency Medicine
DX: J06.9 Acute upper respiratory infection, unspecified (principal); Z11.52 Encounter for screening for COVID-19
CPT/HCPCS: 0241U; 87070

== ENCOUNTER 2023-03-31 10:47 | Emergency (ER) | payer MEDICAID, SELFPAY ==
--- NOTE | ~2023-03-31 | XR_ITS ---
EXAMINATION: XR CHEST CLINICAL INFORMATION: Cough and shortness of breath. COMPARISON: 08/08/2022 TECHNIQUE: 2 views of the chest were obtained. FINDINGS: The lungs are well expanded. No focal consolidation. No pleural effusion. Cardiac silhouette is unchanged. Surgical clips project over the right upper quadrant. XR/XR chest 2V IMPRESSION: No acute abnormality.
[2023-03-31 10:56] VITALS: BP 164/62; PULSE 102; RESP 18; TEMP 36.6; O2SAT 97; BMI 25.8
--- NOTE | 2023-03-31 11:02 | ED.GENADULT ---
HPI - General Adult General Chief complaint: Upper Respiratory Symptoms Stated complaint: Headache SOB Sore Throat Related Data Home Medications Medication Instructions Recorded Confirmed acetaminophen 650 mg 650 mg PO Q12H 07/08/20 11/10/22 tablet,extended release (Tylenol 8 Hour) ascorbic acid (vitamin C) 500 mg 500 mg PO DAILY 02/26/21 11/10/22 tablet (Vitamin C) fluticasone propionate 50 1 - 2 spray intranasal DAILY PRN 02/26/21 11/10/22 mcg/actuation nasal Congestion spray,suspension amitriptyline 10 mg tablet 1 tab PO BEDTIME 08/27/21 11/10/22 carboxymethylcellulose sodium 0.5 1 drp ophthalmic (eye) QID PRN Dry 08/27/21 11/10/22 % eye drops in a dropperette Eye(S) (Lubricating Plus) blood pressure test kit-large #1 ea 09/21/21 11/10/22 wiwfwwleno-lxsbriushgelh-mjwivkdj 1 tab PO DAILY 09/21/21 11/10/22 50 mg-325 mg-40 mg tablet atorvastatin 80 mg tablet 80 mg PO DAILY 10/13/22 11/10/22 ferrous gluconate 324 mg (37.5 mg 324 mg PO .QOD 11/10/22 11/10/22 iron) tablet Previous Rx's Medication Instructions Recorded lisinopril 2.5 mg tablet 2.5 mg PO DAILY #30 tabs 03/11/20 albuterol sulfate 90 mcg/actuation 1 inh inhalation QID PRN shortness 07/17/20 aerosol inhaler of breath or wheezing #6.7 grams docusate sodium 100 mg capsule 200 mg (2 x 100 mg) PO DAILY #180 05/10/22 caps cholecalciferol (vitamin D3) 50 50 mcg PO DAILY #30 tabs 09/08/22 mcg (2,000 unit) tablet sennosides 8.6 mg tablet (Natural 17.2 mg (2 x 8.6 mg) PO BEDTIME 11/10/22 Senna Laxative) constipation #60 tabs Allergies Allergy/AdvReac Type Severity Reaction Status Date / Time Penicillins [PENICILLINS] Allergy Intermediate RASH Verified 11/10/22 10:29 Hydrocodone-Acetaminophen Allergy Unknown tachycardia Uncoded 11/10/22 10:29 narcotics AdvReac Mild heart Uncoded 11/10/22 10:29 palpitations PMFSH Past Medical History Medical History Arthritis Chronic asthma High cholesterol HTN (hypertension) Surgical History History of cholecystectomy History of esophagogastroduodenoscopy (EGD) Hx of colonoscopy (~2019) Family History Family History Mother Diabetes HTN (hypertension) Paternal Aunt Cancer of neck Paternal Uncle Cancer of neck Social History Social History Household Members: Children Housing: Apartment Are you a primary child care centre director to a significant other at home: No Do you presently have visiting nurse or other home services: No Alcohol intake: never Patient Tobacco Use Status: Never used Tobacco Advance Directives: No Advance Directives Information Provided: No service: No Current occupational status: disabled Physical Exam ED Vital Signs: BMI result Body Mass Index 25.8 Course Course Course Narrative: This is an RME: Additional HPI, ROS, PE not included below will be deferred to primary provider. This is a 16-ulvk-vry-chinese speaking female, with a history of diabetes, presenting to the emergency department with complaints of cough, shortness of breath, sore throat. She was seen at the [facility] and was treated with steroids, azithromycin, and inhaler. She completed the full course and is not feeling any better. Further ER evaluation needed. Plan: Labs, chest x-ray, viral swabs. Reevaluation(s) Reevaluation #1: pt eloped prior to full evaluation by primary provider. Medical Decision Making Lab Data 03/31/23 11:06 03/31/23 11:06 Labs: Lab Results 03/31/23 Range/Units 11:06 WBC 4.9 (4.8-10.8) X10*3/uL RBC 4.07 L (4.20-5.50) X10*6/uL Hgb 11.1 L (12.0-16.0) g/dl Hct 35.1 L (37.0-47.0) % MCV 86.2 (80.0-98.0) fL MCH 27.3 (27.0-33.0) pg MCHC 31.6 (31.0-35.0) g/dl RDW 14.3 (11.0-16.0) % Plt Count 181 (160-400) X10*3/uL MPV 12.4 H (9.4-12.3) fL Immature Gran % (Auto) 0.2 (0.0-0.4) % Neut % (Auto) 54.8 (45-73) % Lymph % (Auto) 33.5 (20-40) % [place] % (Auto) 7.6 (2-11) % Eos % (Auto) 3.5 (0-4) % Baso % (Auto) 0.4 (0-2) % Lymph # (Auto) 1.6 (1.2-4.9) X10*3/uL [place] # (Auto) 0.4 (0.1-1.2) X10*3/uL Eos # (Auto) 0.2 (0.0-0.4) X10*3/uL Baso # (Auto) 0.0 (0.0-0.2) X10*3/uL Abs Immat Gran (auto) 0.01 (0.00-0.03) X10*3/uL Absolute Neuts (auto) 2.7 (2.0-8.3) x10*3/uL Absolute Nucleated RBC 0.000 (0.0-0.012) X10*3/uL Nucleated RBC % (auto) 0.0 (0.0-0.2) /100WBC Sodium 144 (135-145) mmol/L Potassium 3.8 (3.3-5.1) mmol/L Chloride 108 (96-108) mmol/L Carbon Dioxide 30 H (22-29) mmol/L Anion Gap 10 L (12-20) BUN 11 (9-16) mg/dL Creatinine 0.75 (0.5-1.4) mg/dL Estim Creat Clear Calc 81.0 Estimated GFR > 60 Random Glucose 117 H (60-115) mg/dL Calcium 9.2 (8.4-10.2) mg/dL Total Bilirubin 0.5 (0.0-1.0) mg/dL Direct Bilirubin 0.1 (0.0-0.5) mg/dL AST 16 (5-31) U/L ALT 20 (0-31) U/L Alkaline Phosphatase 46 (39-117) U/L Total Protein 6.6 (6.5-8.0) g/dL Albumin 3.7 (3.5-5.0) g/dL Influenza Type A (PCR) NEGATIVE (Negative) Influenza Type B (PCR) NEGATIVE (Negative) RSV RNA Qual (PCR) NEGATIVE (Negative) SARS-CoV-2 RNA (RT-PCR) NEGATIVE (Negative) Discharge Plan Discharge Clinical Impression: Cough Patient Disposition: Left W/O Completing Treatment Prescriptions: No Action lisinopril 2.5 mg tablet 2.5 mg PO DAILY Qty: 30 3RF cholecalciferol (vitamin D3) 50 mcg (2,000 unit) tablet 50 mcg PO DAILY Qty: 30 11RF albuterol sulfate 90 mcg/actuation HFA aerosol inhaler 1 inh inhalation QID PRN (Reason: shortness of breath or wheezing) Qty: 6.7 0RF amitriptyline 10 mg tablet 1 tab PO BEDTIME carboxymethylcellulose sodium [Lubricating Plus] 0.5 % dropperette 1 drp ophthalmic (eye) QID PRN (Reason: Dry Eye(S)) atorvastatin 80 mg tablet 80 mg PO DAILY acetaminophen [Tylenol 8 Hour] 650 mg tablet extended release 650 mg PO Q12H fluticasone propionate 50 mcg/actuation spray,suspension 1 - 2 spray intranasal DAILY PRN (Reason: Congestion) ascorbic acid (vitamin C) [Vitamin C] 500 mg tablet 500 mg PO DAILY yedylqjabn-pbwbuhwjvjwwk-qjjm 50-325-40 mg tablet 1 tab PO DAILY (DME) blood pressure test kit-large Kit See Rx Instructions .ROUTE DAILY Qty: 1 Rx Instructions: As directed docusate sodium 100 mg capsule 200 mg PO DAILY Qty: 180 1RF ferrous gluconate 324 mg (37.5 mg iron) tablet 324 mg PO .QOD sennosides [Natural Senna Laxative] 8.6 mg tablet 17.2 mg PO BEDTIME Qty: 60 2RF Discharge Date/Time: 03/31/23 16:13
[2023-03-31 11:12] LABS: MANUAL DIFF FLAG NO
[2023-03-31 11:13] LABS: Basophils Percent Auto 0.4 % (0-2); Eosinophils Absolute Auto 0.2 X10*3/uL (0.0-0.4); Eosinophils Percent Auto 3.5 % (0-4); Hematocrit 35.1 % (37.0-47.0); Hemoglobin 11.1 g/dl (12.0-16.0); Imm Gran Abs Auto 0.01 X10*3/uL (0.00-0.03); Imm Gran Pct Auto 0.2 % (0.0-0.4); Lymphocytes Absolute Auto 1.6 X10*3/uL (1.2-4.9); Lymphocytes Percent Auto 33.5 % (20-40); Mean Corpuscular HGB Conc 31.6 g/dl (31.0-35.0); Mean Corpuscular Hemoglobin 27.3 pg (27.0-33.0); Mean Corpuscular Volume 86.2 fL (80.0-98.0); Mean Platelet Volume 12.4 fL (9.4-12.3); Monocytes Absolute Auto 0.4 X10*3/uL (0.1-1.2); Monocytes Percent Auto 7.6 % (2-11); Neutrophils Absolute Auto 2.7 x10*3/uL (2.0-8.3); Neutrophils Percent Auto 54.8 % (45-73); Platelet Count 181 X10*3/uL (160-400); Red Blood Count 4.07 X10*6/uL (4.20-5.50); Red Cell Distribution Width 14.3 % (11.0-16.0); White Blood Count 4.9 X10*3/uL (4.8-10.8)
[2023-03-31 11:30] LABS: Alanine Aminotransferase 20 U/L (0-31); Albumin Level 3.7 g/dL (3.5-5.0); Alkaline Phosphatase 46 U/L (39-117); Anion Gap 10 (12-20); Aspartate Amino Transferase 16 U/L (5-31); Bilirubin Direct 0.1 mg/dL (0.0-0.5); Bilirubin Total 0.5 mg/dL (0.0-1.0); Blood Urea Nitrogen 11 mg/dL (9-16); Calcium 9.2 mg/dL (8.4-10.2); Carbon Dioxide 30 mmol/L (22-29); Chloride 108 mmol/L (96-108); Estimated Glomerular Filt Rate > 60; Glucose Random 117 mg/dL (60-115); Potassium 3.8 mmol/L (3.3-5.1); Sodium 144 mmol/L (135-145); Total Protein 6.6 g/dL (6.5-8.0)
[2023-03-31 11:51] LABS: Influenza A PCR NEGATIVE (Negative); Influenza B PCR NEGATIVE (Negative); Resp Syncy Virus RNA Qual PCR NEGATIVE (Negative); SARS COV2 PCR INHOUSE NEGATIVE (Negative)
== END 2023-03-31 16:13 | disposition left against medical advice (07) ==
LOC: HO.ED 16:12
PROVIDERS: Physician Assistant Medical; Emergency Provider Emergency Medicine; PCP Registered Nurse
DX: R05.9 Cough, unspecified (principal); R51.9 Headache, unspecified; R06.02 Shortness of breath; J02.9 Acute pharyngitis, unspecified; Z79.899 Other long term (current) drug therapy; Z20.822 Contact with and (suspected) exposure to COVID-19; Z20.828 Contact with and (suspected) exposure to other viral communicable diseases
CPT/HCPCS: 0241U; 36415; 71046; 80048; 80076; 85025; 99281; 99283

== ENCOUNTER 2023-04-12 09:44 | Emergency (ER) | payer MEDICAID, SELFPAY ==
[2023-04-12 10:05] VITALS: BP 129/65; PULSE 85; RESP 18; TEMP 36.6; O2SAT 98; BMI 24.9
--- NOTE | 2023-04-12 10:59 | ED.GENADULT ---
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 Patient reports that her symptoms began when she accidentally swallowed a Band-Aid while eating. Feels that the Band-Aid is still stuck in her throat. States that she has been seen several times, tested for viral illness and strep multiple times, treated for pharyngitis with antibiotics and continues to have the same pain. She denies fever, fatigue, body aches, chills. Denies sore throat, states pain is only in the left submandibular area. Denies difficulty swallowing. MD complaint: neck pain Onset (ago): month(s) Location: neck Radiation: non-radiation Severity: moderate Quality: aching Pain Consistency: constant Relieving factors: none Exacerbating factors: none Associated symptoms: denies other symptoms Treatments prior to arrival: other (antibiotics) Related Data Home Medications Medication Instructions Recorded Confirmed acetaminophen 650 mg 650 mg PO Q12H 07/08/20 11/10/22 tablet,extended release (Tylenol 8 Hour) ascorbic acid (vitamin C) 500 mg 500 mg PO DAILY 02/26/21 11/10/22 tablet (Vitamin C) fluticasone propionate 50 1 - 2 spray intranasal DAILY PRN 02/26/21 11/10/22 mcg/actuation nasal Congestion spray,suspension amitriptyline 10 mg tablet 1 tab PO BEDTIME 08/27/21 11/10/22 carboxymethylcellulose sodium 0.5 1 drp ophthalmic (eye) QID PRN Dry 08/27/21 11/10/22 % eye drops in a dropperette Eye(S) (Lubricating Plus) blood pressure test kit-large #1 ea 09/21/21 11/10/22 amlwwibizo-amuamlniwtwpu-xibsljwo 1 tab PO DAILY 09/21/21 11/10/22 50 mg-325 mg-40 mg tablet atorvastatin 80 mg tablet 80 mg PO DAILY 10/13/22 11/10/22 ferrous gluconate 324 mg (37.5 mg 324 mg PO .QOD 11/10/22 11/10/22 iron) tablet Previous Rx's Medication Instructions Recorded lisinopril 2.5 mg tablet 2.5 mg PO DAILY #30 tabs 03/11/20 albuterol sulfate 90 mcg/actuation 1 inh inhalation QID PRN shortness 07/17/20 aerosol inhaler of breath or wheezing #6.7 grams docusate sodium 100 mg capsule 200 mg (2 x 100 mg) PO DAILY #180 05/10/22 caps cholecalciferol (vitamin D3) 50 50 mcg PO DAILY #30 tabs 09/08/22 mcg (2,000 unit) tablet sennosides 8.6 mg tablet (Natural 17.2 mg (2 x 8.6 mg) PO BEDTIME 11/10/22 Senna Laxative) constipation #60 tabs Allergies Allergy/AdvReac Type Severity Reaction Status Date / Time Penicillins [PENICILLINS] Allergy Intermediate RASH Verified 04/12/23 10:05 Hydrocodone-Acetaminophen Allergy Unknown tachycardia Uncoded 04/12/23 10:05 narcotics AdvReac Mild heart Uncoded 04/12/23 10:05 palpitations Review of Systems Review of Systems: As per HPI Yes all other systems are reviewed and are negative Constitutional: Constitutional: Reports as per HPI PMFSH Past Medical History Medical History Arthritis Chronic asthma High cholesterol HTN (hypertension) Surgical History History of cholecystectomy History of esophagogastroduodenoscopy (EGD) Hx of colonoscopy (~2019) Family History Family History Mother Diabetes HTN (hypertension) Paternal Aunt Cancer of neck Paternal Uncle Cancer of neck Social History Social History Household Members: Children Housing: Apartment Are you a primary respiratory care practitioner to a significant other at home: No Do you presently have visiting nurse or other home services: No Alcohol intake: never Patient Tobacco Use Status: Never used Tobacco Smoked in Last 30 Days: No Use of substances other than those prescribed or required for medical reasons: No Advance Directives: No Patient : No service: No Current occupational status: disabled Physical Exam ED Vital Signs: Vital Signs - 24 hr 04/12/23 10:05 Temperature 98 F Pulse Rate 85 Respiratory Rate 18 Blood Pressure 129/65 Pulse Oximetry 98 Oxygen Delivery Method Room Air BMI result Body Mass Index 24.9 Vital signs have been reviewed and appear to be correct. Blood pressure normal. Heart rate normal. Respiratory rate normal. Temperature normal. Oxygen saturation normal. Const General: cooperative, healthy appearing and no acute distress Orientation/consciousness: oriented to person, oriented to place, oriented to time and patient oriented x3 Limitations: no limitations HENMT Head: Yes normocephalic and Yes atraumatic Ears: external ears normal General nose exam: Normal external nose present Face and sinus: Yes face symmetric Mouth: Normal oral and palatal mucosa present, tongue normal, Normal salivary glands and ducts present, oropharynx normal, moist mucous membranes, no audible dysphonia and no drooling Throat: Yes posterior oropharynx normal, Yes tonsils normal, Yes uvula midline and No uvular edema Eyes Pupils: Equal, round and reactive pupils present Neck Neck: Yes normal visual inspection, Yes full ROM, Yes no meningeal signs, Yes trachea midline, Yes supple, No anterior neck swelling and No submandibular swelling Lymphatic: no lymphadenopathy noted Resp Effort & Inspection: normal respiratory effort and able to speak in complete sentences Auscultation: clear to auscultation bilaterally Cardio Rate: regular rate Rhythm: regular rhythm Heart sounds: S1 normal heart sound present and S2 normal heart sound present GI Palpation (GI): Soft to palpation and nontender Auscultation: normoactive bowel sounds General: Yes no CVA tenderness Back/Spine/Pelvis Back: no CVA tenderness Skin General skin exam: elasticity normal and turgor normal Neuro General: oriented to person, oriented to place, oriented to time, patient oriented x3, moves all extremities, no meningeal signs, no focal motor deficits and CN's II-XI intact bilaterally Cranial nerves: Yes Equal, round and reactive pupils present Cognition (Neuro): normal cognition Extrem General: Yes full ROM, Yes no pedal edema and Yes no calf tenderness Psych Mental Status: mental status grossly normal Affect: normal affect Thought process: Normal thought process present Medical Decision Making Medical Decision Making MDM Narrative: Patient is a 62-year-old Nigerian-speaking female with history of GERD, HTN, arthritis, asthma presenting to the emergency department with complaint of left submandibular pain for the past month. On exam patient is awake, A+Ox3, VS WNL, afebrile, normal neurological exam without focal deficits, physical exam findings as above. Given reported symptoms and physical exam findings, initial differential includes viral illness, strep pharyngitis, sialadenitis. Do not suspect Brijesh's angina, Sjogren syndrome, sarcoidosis. Strep swab negative in the ED today. Discussed with patient that no imaging modalities are available in the ED to determine if the Band-Aid is retained. Feel more likely symptoms are related to sialadenitis and coincidentally began after patient swallowed the Band-Aid. Discussed with patient using sour candies and gentle massage. Will refer to Dr. Gonzalez for further evaluation and management of symptoms. Return precautions discussed. Patient verbalized understanding of and agreement with plan. Differential Diagnosis Differential Diagnoses: The differential diagnosis associated with the presentation includes As per [facility]. Lab Data [facility] Lab Attestation statement: I reviewed the patient's lab results. As per [facility] Labs: Lab Results 04/12/23 Range/Units 11:08 S. pyogenes GrpA RIZWAN Negative (Negative) External Record Review External record reviewed: Inpatient record, Office record and Outpatient record Discharge Plan Discharge Clinical Impression: Pain of submandibular gland Patient Disposition: Home, Self-Care Instructions: Sialoadenitis (ED) Additional Instructions: Usted fue evaluado hoy en el departamento de emergencias por dolor en el olesya en el ?owen de la gl?ndula salival. Es posible que esto se deba a un conducto salival bloqueado. Puedes intentar chupar caramelos ?cidos bobby yovana de hargrove?n y realizar suaves masajes en la melissa bobby se demostr? en urgencias. Lo derivar?n al m?dico especialista en o?do, nariz y garganta para dion evaluaci?n y control adicionales de maico s?ntomas. Llame a silva oficina para programar dion awilda. Regrese al departamento de emergencias si presenta hinchaz?n, incapacidad para tragar, fiebre de 100 0,4 ?F o m?s, falta de aliento o dificultad para respirar, o cualquier otro s?ntoma preocupante. Prescriptions: No Action lisinopril 2.5 mg tablet 2.5 mg PO DAILY Qty: 30 3RF cholecalciferol (vitamin D3) 50 mcg (2,000 unit) tablet 50 mcg PO DAILY Qty: 30 11RF albuterol sulfate 90 mcg/actuation HFA aerosol inhaler 1 inh inhalation QID PRN (Reason: shortness of breath or wheezing) Qty: 6.7 0RF amitriptyline 10 mg tablet 1 tab PO BEDTIME carboxymethylcellulose sodium [Lubricating Plus] 0.5 % dropperette 1 drp ophthalmic (eye) QID PRN (Reason: Dry Eye(S)) atorvastatin 80 mg tablet 80 mg PO DAILY acetaminophen [Tylenol 8 Hour] 650 mg tablet extended release 650 mg PO Q12H fluticasone propionate 50 mcg/actuation spray,suspension 1 - 2 spray intranasal DAILY PRN (Reason: Congestion) ascorbic acid (vitamin C) [Vitamin C] 500 mg tablet 500 mg PO DAILY rlbzxqolpo-uyjykmihfmcwg-ifap 50-325-40 mg tablet 1 tab PO DAILY (DME) blood pressure test kit-large Kit See Rx Instructions .ROUTE DAILY Qty: 1 Rx Instructions: As directed docusate sodium 100 mg capsule 200 mg PO DAILY Qty: 180 1RF ferrous gluconate 324 mg (37.5 mg iron) tablet 324 mg PO .QOD sennosides [Natural Senna Laxative] 8.6 mg tablet 17.2 mg PO BEDTIME Qty: 60 2RF Referrals: Bernardo Gonzalez [Physician] - Print Language: Nigerian
--- NOTE | 2023-04-12 11:14 | PC.NURSE ---
swabs obtained and sent to lab.
[2023-04-12 11:42] LABS: IDNOW Serial# 58CA691E; Strep A Nucleic Acid Negative (Negative)
[2023-04-12 12:27] LABS: Influenza A PCR NEGATIVE (Negative); Influenza B PCR NEGATIVE (Negative); Resp Syncy Virus RNA Qual PCR NEGATIVE (Negative); SARS COV2 PCR INHOUSE NEGATIVE (Negative)
== END 2023-04-12 12:31 | disposition home or self-care (01) ==
PROVIDERS: Emergency Provider Emergency Medicine; PCP Registered Nurse
DX: R07.0 Pain in throat (principal); Z20.822 Contact with and (suspected) exposure to COVID-19; Z20.828 Contact with and (suspected) exposure to other viral communicable diseases; Z79.899 Other long term (current) drug therapy
CPT/HCPCS: 0241U; 87651; 99283; 99284

== ENCOUNTER 2023-06-02 10:46 | Outpatient (AMB) | payer MEDICAID, SELFPAY ==
--- NOTE | 2023-06-02 10:47 | A.OFFVIS_ITS ---
Intake Vital Signs 06/02/23 10:48 Height 5 ft 7 in Weight 158 lb 11.725 oz BMI 24.9 BP 140/63 H Blood Pressure Location Lt brachial Position Sitting Pulse 64 Intake Visit Reasons: Gastroesophageal reflux disease (GERD) Intake Note: Crystal presents in the office as a follow up for GERD. CC: She states that she is still having some issues with her stomach. She is always having the same discomfort whenever she eats. Supervisor Intermediates Required: Yes Supervisor Intermediates Name: Tristen [id number] Allergies Penicillins [PENICILLINS] Allergy (Intermediate, Verified 06/02/23 11:01) RASH Hydrocodone-Acetaminophen Allergy (Unknown, Uncoded 06/02/23 11:01) tachycardia narcotics Adverse Reaction (Mild, Uncoded 06/02/23 11:01) heart palpitations HPI Gastroesophageal reflux disease (GERD) HPI Details LAST VISIT: GERD (gastroesophageal reflux disease) Continue Dexilant, continue avoiding dietary triggers and late night snacking. Staying upright for minimum 3 hours after meals discussed with patient. Patient continues to be constipated which can contribute to her epigastric burning and occasional acid reflux Chronic idiopathic constipation Patient continues to be constipated. She can continue take Colace. I will add Senokot. Patient was encouraged to take 2 tablets every evening. Patient was also encouraged to increase activity and fluid intake to promote better bowel motility. I will see patient in 3 months, sooner on as needed basis. Patient is agreeable to this plan and verbalizes understanding of instructions. She was given the opportunity to ask questions and all questions answered. ? Thank you for allowing me to participate in her care Plan Medications New sennosides (Natural Senna Laxative) 17.2 mg (2 x 8.6 mg) PO BEDTIME 60 tabs 2RF constipation K59.00 - Constipation, unspecified Discontinued ferrous sulfate (Iron (ferrous sulfate)) Discontinued Reason: Duplicate 325 mg PO DAILY 60 tabs 0RF TODAY'S VISIT: Patient is here today for follow-up. Patient reports that she continues to have pain in her epigastric area no matter what she eats. Patient reports that the pain lasts throughout the day. Patient reports dyspepsia without dysphagia or odynophagia. Patient reports that she is taking Dexilant at night time however she does not feel like it is helping. Patient is reporting that she is constipated. Tried taking senna and Dulcolax tablets, reports that it was helpful however still felt like she was in able to empty her bowels good. Patient denies any melena, hematochezia, unintentional weight loss or ribbon like stools. Patient denies any nausea or vomiting. Occasional abdominal cramping when constipated. Last colonoscopy was in August of 2013, no polyps found. [facility] Medical History Chronic asthma HTN (hypertension) Arthritis High cholesterol Surgical History History of cholecystectomy History of esophagogastroduodenoscopy (EGD) Hx of colonoscopy (~2018) Family History Mother Diabetes HTN (hypertension) Paternal Aunt Cancer of neck Paternal Uncle Cancer of neck Social History Household Members: Children Housing: Apartment Are you a primary lpn care manager to a significant other at home: No Do you presently have visiting nurse or other home services: No Alcohol intake: never Patient Tobacco Use Status: Never used Tobacco service: No Current occupational status: disabled Review of Systems Const Denies weight gain and Denies weight loss ENT Reports no additional complaints, Denies dysphagia and Denies odynophagia Card Reports no additional complaints Resp Reports no additional complaints GI Reports abdominal pain (Epigastric), Denies belching, Denies melena, Denies bloating, Reports constipation, Denies dysphagia, Denies excessive flatus, Denies dyspepsia, Reports heartburn, Denies diarrhea, Denies loose stools, Denies nausea, Denies odynophagia and Denies vomiting Reports no additional complaints Musc Reports no additional complaints Neuro Reports no additional complaints Psych Reports no additional complaints Endo Reports no additional complaints Physical Exam Vital Signs: Last Vital Signs Pulse 64 01/19/24 10:48 BP 140/63 H 06/02/23 10:48 BMI result Body Mass Index 24.9 Const General: healthy appearing, no acute distress and well developed Nutritional Appearance: well nourished Orientation/consciousness: patient oriented x3 Resp Effort & Inspection: normal respiratory effort, able to speak in complete sentences, no tracheal deviation and symmetric chest movement Auscultation: clear to auscultation bilaterally Cardio Rate: regular rate GI Inspection: Yes normal to inspection and No distended Palpation (GI): Soft to palpation, not firm, nontender and No hepatosplenomegaly present Auscultation: normal bowel sounds General: Yes no CVA tenderness Back/Spine/Pelvis Back: no CVA tenderness Skin General skin exam: elasticity normal, turgor normal and dry skin Neuro General: patient oriented x3 Psych Appearance: grossly normal Mental Status: mental status grossly normal Assessment & Plan Assessment & Plan (1) GERD (gastroesophageal reflux disease): Code(s): K21.9 - Gastro-esophageal reflux disease without esophagitis Qualifiers: Esophagitis presence: esophagitis presence not specified Qualified Code(s): K21.9 - Gastro-esophageal reflux disease without esophagitis (2) Chronic idiopathic constipation: Code(s): K59.04 - Chronic idiopathic constipation (3) Postprandial epigastric pain: Code(s): R10.13 - Epigastric pain Plan Will start patient on Nexium in the morning. She will take sucralfate at bedtime. Discussed with patient avoiding dietary triggers and late night snacking. Staying upright for minimal 3 hours after meals discussed with her. Patient will start taking Linzess to help her move her bowels better. She was encouraged to increase fluid intake and activity to promote better bowel motility. Patient will return to our office in 5 weeks. Will schedule colonoscopy, booking into September now. Will discuss colonoscopy, patient will be sent for upper endoscopy as well to rule out gastritis, duodenitis, esophagitis, gastric or peptic ulcers, Diaz's, H pylori. Patient is agreeable to this plan and verbalizes understanding of instructions. She was given the opportunity to ask questions and all questions answered. Thank you for allowing me to participate in her care Medications: New sucralfate 1 g PO BEDTIME 30 tabs 2RF R19.7 - Diarrhea, unspecified linaclotide (Linzess) 145 mcg PO DAILY 30 caps 2RF esomeprazole magnesium (Nexium) 40 mg PO DAILY 30 caps 5RF K21.9 - Gastro- esophageal reflux disease without esophagitis Refilled docusate sodium 200 mg (2 x 100 mg) PO DAILY 180 caps 1RF K59.04 - Chronic idiopathic constipation Coding Level of Care Code Est Pt Level 4 (06323) Diagnoses Gastroesophageal reflux disease, unspecified whether esophagitis present K21.9 Esophagitis presence: esophagitis presence not specified Chronic idiopathic constipation K59.04 Postprandial epigastric pain R10.13 Time Spent (min) 35 Comment 25 minutes spent with patient and additional 10 minutes spent reviewing her records
[2023-06-02 10:48] VITALS: BP 140/63; PULSE 64; BMI 24.9
== END 2023-06-02 11:48 | disposition home or self-care (01) ==
PROVIDERS: PCP Registered Nurse; Visit Provider Nurse Practitioner Family
DX: K21.9 Gastro-esophageal reflux disease without esophagitis (principal); K59.04 Chronic idiopathic constipation; R10.13 Epigastric pain
CPT/HCPCS: 99214

== ENCOUNTER → 2023-06-02 10:46 | Outpatient (BNVA) | payer MEDICAID, SELFPAY | PROVIDERS: PCP Registered Nurse; Visit Provider Nurse Practitioner Family | DX: K21.9 Gastro-esophageal reflux disease without esophagitis (principal); K59.04 Chronic idiopathic constipation; R10.13 Epigastric pain | CPT/HCPCS: 99212 ==

== ENCOUNTER 2023-06-16 12:27 | Outpatient (REF) | payer MEDICAID, SELFPAY | END 2023-06-16 12:28 | disposition home or self-care (01) | LOC: HO.MAMMO 12:27 | PROVIDERS: PCP Nurse Practitioner; Visit Provider Nurse Practitioner | DX: Z12.31 Encounter for screening mammogram for malignant neoplasm of breast (principal) | CPT/HCPCS: 77063; 77067 ==

== ENCOUNTER → 2023-06-16 13:15 | Outpatient (BNV) | payer MEDICAID, SELFPAY | PROVIDERS: PCP Nurse Practitioner; Visit Provider Radiology Diagnostic Radiology | DX: Z12.31 Encounter for screening mammogram for malignant neoplasm of breast (principal) | CPT/HCPCS: 77063; 77067 ==

== ENCOUNTER 2023-06-19 09:38 | Outpatient (REF) | payer MEDICAID, SELFPAY ==
[2023-06-19 11:35] LABS: MANUAL DIFF FLAG NO
[2023-06-19 11:47] LABS: Basophils Percent Auto 0.5 % (0-2); Eosinophils Absolute Auto 0.2 X10*3/uL (0.0-0.4); Eosinophils Percent Auto 4.6 % (0-4); Hematocrit 35.9 % (37.0-47.0); Hemoglobin 11.2 g/dl (12.0-16.0); Imm Gran Abs Auto 0.01 X10*3/uL (0.00-0.03); Imm Gran Pct Auto 0.3 % (0.0-0.4); Lymphocytes Percent Auto 51.3 % (20-40); Mean Corpuscular HGB Conc 31.2 g/dl (31.0-35.0); Mean Corpuscular Hemoglobin 27.3 pg (27.0-33.0); Mean Corpuscular Volume 87.6 fL (80.0-98.0); Mean Platelet Volume 13.3 fL (9.4-12.3); Monocytes Absolute Auto 0.4 X10*3/uL (0.1-1.2); Monocytes Percent Auto 9.1 % (2-11); Neutrophils Absolute Auto 1.4 x10*3/uL (2.0-8.3); Neutrophils Percent Auto 34.2 % (45-73); Platelet Count 161 X10*3/uL (160-400); Red Cell Distribution Width 13.8 % (11.0-16.0); White Blood Count 3.9 X10*3/uL (4.8-10.8)
[2023-06-19 12:07] LABS: Estimated Average Glucose 114 mg/dL; Hemoglobin A1c % 5.6 % (<6.0)
[2023-06-19 12:10] LABS: Cholesterol 200 mg/dL (<200); HDL Cholesterol 67 mg/dL (>40); LDL Cholesterol Calculated 119 mg/dL (<100); Triglycerides 71 mg/dL (<150)
== END 2023-06-19 09:39 | disposition home or self-care (01) ==
LOC: HO.HHCL 09:38
PROVIDERS: Visit Provider Nurse Practitioner
DX: D61.818 Other pancytopenia (principal); E66.3 Overweight; E78.2 Mixed hyperlipidemia
CPT/HCPCS: 36415; 80061; 83036; 85025

== ENCOUNTER 2024-01-25 14:49 | Outpatient (REF) | payer MEDICAID, SELFPAY ==
--- NOTE | ~2024-01-25 | XR_ITS ---
EXAMINATION: XR SHOULDER, LEFT CLINICAL INFORMATION: Musculoskeletal pain, left shoulder COMPARISON: None available. TECHNIQUE: AP external rotation, Grashey, scapular Y, and axillary views of the left shoulder. FINDINGS: The bones are intact no fracture. Glenohumeral and acromioclavicular alignment is anatomic with normal glenohumeral joint space. Mild degenerative change of the acromioclavicular joint. No abnormal soft tissue calcifications. Small subchondral cystic spaces seen within the greater tuberosity of the humeral head may be related to rotator cuff disease. XR/XR shoulder LT min 2V IMPRESSION: 1. No acute bony abnormality. 2. Mild degenerative change of the acromioclavicular joint. 3. Question of rotator cuff disease. Electronically signed by: Alisia Blankenship MD 02/15/2024 02:51 PM EDT
== END 2024-01-25 14:50 | disposition home or self-care (01) ==
LOC: HO.HHCX 14:49
PROVIDERS: Visit Provider Nurse Practitioner
DX: M79.18 Myalgia, other site (principal)
CPT/HCPCS: 73030

== ENCOUNTER 2024-02-06 09:53 | Outpatient (REF) | payer MEDICAID, SELFPAY ==
[2024-02-06 11:20] LABS: MANUAL DIFF FLAG NO
[2024-02-06 11:32] LABS: Basophils Percent Auto 0.5 % (0-2); Eosinophils Absolute Auto 0.1 X10*3/uL (0.0-0.4); Eosinophils Percent Auto 3.2 % (0-4); Hematocrit 34.4 % (37.0-47.0); Hemoglobin 10.9 g/dl (12.0-16.0); Lymphocytes Absolute Auto 1.5 X10*3/uL (1.2-4.9); Lymphocytes Percent Auto 33.3 % (20-40); Mean Corpuscular HGB Conc 31.7 g/dl (31.0-35.0); Mean Corpuscular Hemoglobin 27.2 pg (27.0-33.0); Mean Corpuscular Volume 85.8 fL (80.0-98.0); Mean Platelet Volume 13.2 fL (9.4-12.3); Monocytes Absolute Auto 0.4 X10*3/uL (0.1-1.2); Monocytes Percent Auto 8.8 % (2-11); Neutrophils Absolute Auto 2.4 x10*3/uL (2.0-8.3); Neutrophils Percent Auto 54.2 % (45-73); Platelet Count 179 X10*3/uL (160-400); Red Blood Count 4.01 X10*6/uL (4.20-5.50); Red Cell Distribution Width 14.4 % (11.0-16.0); White Blood Count 4.4 X10*3/uL (4.8-10.8)
[2024-02-06 11:41] LABS: Estimated Average Glucose 117 mg/dL; Hemoglobin A1C 108.0877 umol/L; Hemoglobin A1c % 5.7 % (<6.0)
[2024-02-06 12:00] LABS: Alanine Aminotransferase 11 U/L (0-31); Alkaline Phosphatase 49 U/L (39-117); Anion Gap 9 (12-20); Aspartate Amino Transferase 16 U/L (5-31); Bilirubin Total 0.5 mg/dL (0.0-1.0); Blood Urea Nitrogen 15 mg/dL (9-16); Calcium 9.4 mg/dL (8.4-10.2); Carbon Dioxide 30 mmol/L (22-29); Chloride 108 mmol/L (96-108); Cholesterol 216 mg/dL (<200); Estimated Glomerular Filt Rate > 60; Glucose Random 96 mg/dL (60-115); HDL Cholesterol 61 mg/dL (>40); LDL Cholesterol Calculated 141 mg/dL (<100); Sodium 143 mmol/L (135-145); Total Protein 7.3 g/dL (6.5-8.0); Triglycerides 74 mg/dL (<150)
[2024-02-06 12:26] LABS: Ferritin 82 ng/mL (10-250)
== END 2024-02-06 09:54 | disposition home or self-care (01) ==
LOC: HO.HHCL 09:53
PROVIDERS: Referring Provider Internal Medicine Medical Oncology; Visit Provider Nurse Practitioner
DX: D61.818 Other pancytopenia (principal); E78.2 Mixed hyperlipidemia
CPT/HCPCS: 36415; 80053; 80061; 82728; 83036; 85025

== ENCOUNTER 2024-02-19 11:56 | Outpatient (REF) | payer MEDICAID, SELFPAY ==
--- NOTE | ~2024-02-19 | XR_ITS ---
EXAMINATION: XR ANKLE, RIGHT CLINICAL INFORMATION: Right ankle pain. COMPARISON: None available. TECHNIQUE: AP, lateral, and mortise views of the right ankle. FINDINGS: No acute fracture or dislocation. The ankle mortise is maintained. There appears to be mild broadening of the articulation between the anterior calcaneal process and adjacent navicular, which could indicate a degree of fibrous coalition. Alternatively, this may be artifactual related to overlying osseous structures. Plantar and dorsal calcaneal spurs. XR/XR ankle RT min 3V IMPRESSION: 1. No acute fracture or dislocation. 2. Mild broadening of the articulation between the anterior calcaneal process and adjacent navicular, which could indicate a degree of fibrous coalition. Alternatively, this may be artifactual related to overlying osseous structures. Electronically signed by: Yaya Blakely MD 02/19/2024 01:36 PM EDT
== END 2024-02-19 11:57 | disposition home or self-care (01) ==
LOC: HO.HHCX 11:56
PROVIDERS: Visit Provider Nurse Practitioner
DX: M25.571 Pain in right ankle and joints of right foot (principal)
CPT/HCPCS: 73610; 82043; 82570

== ENCOUNTER 2024-02-19 12:19 | Outpatient (REF) | payer MEDICAID, SELFPAY ==
[2024-02-19 14:09] LABS: Creatinine Urine 88.02 mg/dL; Microalbum/Creatinine Ratio Ur 6.8 ug/mg cr (<30)
== END 2024-02-19 12:20 | disposition home or self-care (01) ==
LOC: HO.HHCL 12:19
PROVIDERS: Visit Provider Nurse Practitioner
DX: I10 Essential (primary) hypertension (principal)
CPT/HCPCS: 82043; 82570

== ENCOUNTER 2024-03-25 21:56 | Emergency (ER) | payer MEDICAID, SELFPAY ==
[2024-03-25 22:07] VITALS: BP 120/40; BP 167/69; PULSE 55; PULSE 70; RESP 16; TEMP 36.8; O2SAT 100; BMI 29.4
--- NOTE | 2024-03-25 22:14 | ECG_ITS ---
Test Reason : DIZZINESS Blood Pressure : / mmHG Vent. Rate : 056 BPM Atrial Rate : 056 BPM P-R Int : 188 ms QRS Dur : 110 ms QT Int : 432 ms P-R-T Axes : 045 -32 042 degrees QTc Int : 416 ms Sinus bradycardia Left axis deviation Possible Anterolateral infarct , age undetermined Abnormal ECG When compared with ECG of 14-JUL-2021 10:17, Incomplete left bundle branch block is no longer Present Borderline criteria for Anterolateral infarct are now Present Referred By: Generic ED Physician Electronically Signed By:Pancho Gallegos
--- NOTE | 2024-03-25 22:31 | ED_ITS ---
HPI - General Adult General Chief complaint: Dizziness Stated complaint: dizzy Time Seen by Provider: 03/25/24 22:18 Source: patient and EMS Mode of arrival: EMS Limitations: no limitations History of Present Illness ED Provider: Dr. Carmen Moreno HPI narrative: Patient comes to the emergency room complaining of dizziness. Patient states that it started when she woke from her sleep, almost like room spinning. Patient became very nauseous. Denies vomiting. Patient states that when she moves her head a certain way she has dizziness and nausea. Patient states that if she keeps her head still, she does not feel that the room spins as much. Patient states that she was recently diagnosed with bronchitis. Patient states that she has had in the past similar symptoms of vertigo.. At this time, patient denies chest pain or shortness of breath. Denies syncopal or near syncopal episodes Related Data Home Medications ?Medication ?Instructions ?Recorded ?Confirmed acetaminophen 650 mg 650 mg PO Q12H 07/08/20 10/16/23 tablet,extended release (Tylenol 8 Hour) ascorbic acid (vitamin C) 500 mg 500 mg PO DAILY 02/26/21 10/16/23 tablet (Vitamin C) fluticasone propionate 50 1 - 2 spray intranasal DAILY PRN 02/26/21 10/16/23 mcg/actuation nasal Congestion spray,suspension amitriptyline 10 mg tablet 1 tab PO BEDTIME 08/27/21 10/16/23 carboxymethylcellulose sodium 0.5 1 drp ophthalmic (eye) QID PRN Dry 08/27/21 10/16/23 % eye drops in a dropperette Eye(S) (Lubricating Plus) blood pressure test kit-large #1 ea 09/21/21 10/16/23 ezlovwfxbd-njzdbmynptyxc-ikhonbyz 1 tab PO DAILY 09/21/21 10/16/23 50 mg-325 mg-40 mg tablet atorvastatin 80 mg tablet 80 mg PO DAILY 10/13/22 10/16/23 cyanocobalamin (vitamin B-12) 1,000 mcg PO DAILY 06/02/23 10/16/23 1,000 mcg tablet ferrous gluconate 324 mg (38 mg 324 mg PO Q OTHER DAY 06/02/23 10/16/23 iron) tablet lidocaine 5 % topical patch 5 patch topical DAILY 01/19/24 06/03/24 Previous Rx's ?Medication ?Instructions ?Recorded lisinopril 2.5 mg tablet 2.5 mg PO DAILY #30 tabs 03/11/20 albuterol sulfate 90 mcg/actuation 1 inh inhalation QID PRN shortness 07/17/20 aerosol inhaler of breath or wheezing #6.7 grams cholecalciferol (vitamin D3) 50 50 mcg PO DAILY #30 tabs 09/08/22 mcg (2,000 unit) tablet sennosides 8.6 mg tablet (Natural 17.2 mg (2 x 8.6 mg) PO BEDTIME 11/10/22 Senna Laxative) constipation #60 tabs sucralfate 1 gram tablet 1 g PO BEDTIME #30 tabs 06/02/23 esomeprazole magnesium 40 mg 40 mg PO DAILY #30 caps 10/04/23 capsule,delayed release (Nexium) linaclotide 145 mcg capsule 145 mcg PO DAILY #30 caps 11/03/23 (Linzess) docusate sodium 100 mg capsule 200 mg (2 x 100 mg) PO DAILY #180 03/15/24 caps ferrous gluconate 324 mg (38 mg 324 mg PO DAILY #30 tabs 03/18/24 iron) tablet meclizine 50 mg tablet 50 mg PO BID PRN dizziness #14 tabs 03/26/24 Allergies Allergy/AdvReac Type Severity Reaction Status Date / Time Penicillins [PENICILLINS] Allergy Intermediate RASH Verified 03/25/24 22:09 Hydrocodone-Acetaminophen Allergy Unknown tachycardia Uncoded 03/25/24 22:09 narcotics AdvReac Mild heart Uncoded 03/25/24 22:09 palpitations Review of Systems 2 Review of Systems: Constitutional : No Weight loss, No Fever, No Chills, No Night Sweats, No Fatigue, No Malaise ENT/Mouth : No Hearing loss, No Ear Pain, No Nasal Congestion, No Sinus Pain, No Hoarseness, No sore throat, No Rhinorrhea, No Swallowing Difficulty Eyes: No Eye Pain, No Swelling, No Redness, No Foreign Body, No Discharge, No Vision Changes Cardiovascular : No Chest Pain, No SOB, No Dyspnea on Exertion, No Orthopnea, No Edema, No Palpitations Respiratory : No Cough, No Sputum, No Wheezing, No Smoke Exposure, No Dyspnea Gastrointestinal : No Nausea, No Vomiting, No Diarrhea, No Constipation, No abdominal Pain, No Hematochezia, No Melena Genitourinary : no irregular bleeding, No Dysuria, No Urinary Frequency, No Hematuria, No Urinary Incontinence, No Urgency, No Flank Pain, No Urinary Flow Changes, No Hesitancy Musculoskeletal : No joint pain, No Myalgias, No Joint Swelling Skin : No Skin Lesions, No rash Neuro : No Weakness, No Numbness, No Paresthesias, No Loss of Consciousness, complaining of dizziness, room spinning, headache Psych : No Anxiety/Panic, No Depression, No SI/HI/AH/VH, No Social Issues, Heme/Lymph: No Bruising, No Bleeding,No Lymphadenopathy Endocrine : No Polyuria, No Polydipsia, No Temperature Intolerance [facility] Past Medical History Medical History Chronic asthma HTN (hypertension) Arthritis High cholesterol Surgical History History of cholecystectomy History of esophagogastroduodenoscopy (EGD) Hx of colonoscopy (~2019) Family History Family History Mother Diabetes HTN (hypertension) Paternal Aunt Cancer of neck Paternal Uncle Cancer of neck Social History Social History Household Members: Children Housing: Apartment Are you a primary home care manager to a significant other at home: No Do you presently have visiting nurse or other home services: No Alcohol intake: never Patient Tobacco Use Status: Never used Tobacco Advance Directives: No Advance Directives Information Provided: No Do you have a plan to hurt others: No Plan service: No Current occupational status: disabled Physical Exam ED Vital Signs: Vital Signs - 24 hr 03/25/24 22:07 03/26/24 02:58 03/26/24 03:01 Temperature 98.3 F Pulse Rate 55 52 53 Respiratory Rate 16 Blood Pressure 120/40 L 135/49 L 142/56 H Pulse Oximetry 100 Oxygen Delivery Method Room Air 03/26/24 03:02 03/26/24 03:05 Temperature 97.2 F Pulse Rate 72 72 Respiratory Rate 16 Blood Pressure 109/55 L 109/55 L Pulse Oximetry 97 Oxygen Delivery Method Room Air BMI result Body Mass Index 29.4 Const Other: Appearance: Alert. Oriented X3. No acute distress. Eyes: Pupils equal, round and reactive to light. No nystagmus ENT: Pharynx normal. Neck: Normal inspection. Neck supple. No lymph nodes noted. No crepitus CVS: Normal heart rate and rhythm. Pulses normal. Normal S1 and S2 Respiratory: No respiratory distress. Breath sounds normal. No Wheezing. No rales Abdomen: Soft and nontender. No rigidity. No distention. Skin: Skin warm and dry. Normal skin color. Normal skin turgor. Extremities: No lower extremity edema. No Lacerations. No Rash Neuro: Oriented X 3. No motor deficit. No sensory deficit. Moving all extremities. No slurred speech. CN 2 through 12 grossly intact, patient has normal steady gait, good truncal stability Psych: calm, cooperative, normal affect NIH Stroke Scale Internal: Initial- Upon Arrival Level of Consciousness: Alert Level of Consciousness Questions: Answers both questions correctly Level of Consciousness Commands: Performs both tasks correctly Best Gaze: Normal Visual: No visual loss Facial Palsy: Normal Motor Arm (Right): No drift Motor Arm (Left): No drift Motor Leg (Right): No drift Motor Leg (Left): No drift Limb Ataxia: Absent Sensory: Normal Best Language: No aphasia Dysarthia: Normal Extinction and Inattention: No abnormality Score: 0 Course Course Course Narrative: All of patient's labs pending Patient received meclizine and acetaminophen Medications Administered Generic Name Dose Route Start Last Admin Trade Name Freq PRN Reason Stop Dose Admin Sodium Chloride 1,000 mls @ 999 mls/hr 03/26/24 03:05 03/26/24 03:09 Ns IVCONT 03/26/24 04:05 999 mls/hr .Q1H1M ONE Administration Discontinued Medications Generic Name Dose Route Start Last Admin Trade Name Freq PRN Reason Stop Dose Admin Acetaminophen 975 mg 03/25/24 22:33 03/25/24 22:39 Acetaminophen 325 Mg Tablet PO 03/25/24 22:34 975 mg ONCE ONE Administration Diazepam 2 mg 03/26/24 00:45 03/26/24 02:47 Diazepam 2 Mg Tablet PO 03/26/24 00:46 2 mg ONCE ONE Administration Meclizine HCl 50 mg 03/25/24 22:30 03/25/24 22:37 Meclizine Hcl 25 Mg Tablet PO 03/25/24 22:31 50 mg ONCE ONE Administration Ondansetron HCl 4 mg 03/26/24 00:45 03/26/24 02:47 Ondansetron Odt 4 Mg Tab.Selma VELEZ 03/26/24 00:46 4 mg ONCE ONE Administration Medical Decision Making Medical Decision Making [facility] Narrative: -my interpretation of EKG: Sinus bradycardia, 156, no ST segment depression or elevation, no T-wave inversion, QTC 416 My interpretation of labs: Patient's hematology 10.5 which is at patient's baseline. Chemistry within normal limits, LFTs within normal limits, troponin less than 2.7. COVID influenza negative. -patient has been up and walking, disconnected herself in the monitor, goes to the bathroom. Steady gait. Also, our tech ambulated with the patient, patient reported feeling a bit stay but walked well by herself -patient was given p.o. meclizine and acetaminophen. Patient states the headache completely disappeared, still feeling a bit nauseous. Patient states that as long as she does not move she feels well. Patient has been getting up to the bathroom by herself, good normal steady unassisted gait. Patient states that she feels a bit off but not significantly. Patient given over the tongue Zofran and p.o. diazepam. -after this medication, patient was ambulated again, patient states that she feels a bit better, still slightly lightheaded but is able to walk completely by herself -orthostatic vitals were obtained, patient's orthostatic vitals are positive. Patient will be receiving IV fluids. -after IV fluids, patient's orthostatic vitals will be repeated. -I discussed the patient with Dr. Miller Differential Diagnosis Differential Diagnoses: The differential diagnosis associated with the presentation includes (BPPV, orthostatic hypotension, vertigo) Admission/Observation Consideration of admission/observation: Escalation of care including admission/observation considered (Given patient's symptoms, observation/admission was considered) Lab Data [facility] Lab Attestation statement: I reviewed the patient's lab results. 03/25/24 22:32 03/25/24 22:32 Labs: Lab Results 03/25/24 Range/Units 22:32 WBC 5.3 (4.8-10.8) X10*3/uL RBC 3.81 L (4.20-5.50) X10*6/uL Hgb 10.5 L (12.0-16.0) g/dl Hct 32.8 L (37.0-47.0) % MCV 86.1 (80.0-98.0) fL MCH 27.6 (27.0-33.0) pg MCHC 32.0 (31.0-35.0) g/dl RDW 13.8 (11.0-16.0) % Plt Count 148 L (160-400) X10*3/uL MPV 12.6 H (9.4-12.3) fL Immature Gran % (Auto) 0.2 (0.0-0.4) % Neut % (Auto) 69.1 (45-73) % Lymph % (Auto) 21.4 (20-40) % [place] % (Auto) 6.6 (2-11) % Eos % (Auto) 2.3 (0-4) % Baso % (Auto) 0.4 (0-2) % Lymph # (Auto) 1.1 L (1.2-4.9) X10*3/uL [place] # (Auto) 0.4 (0.1-1.2) X10*3/uL Eos # (Auto) 0.1 (0.0-0.4) X10*3/uL Baso # (Auto) 0.0 (0.0-0.2) X10*3/uL Abs Immat Gran (auto) 0.01 (0.00-0.03) X10*3/uL Absolute Neuts (auto) 3.7 (2.0-8.3) x10*3/uL Absolute Nucleated RBC 0.000 (0.0-0.012) X10*3/uL Nucleated RBC % (auto) 0.0 (0.0-0.2) /100WBC Sodium 140 (135-145) mmol/L Potassium 4.0 (3.3-5.1) mmol/L Chloride 105 (96-108) mmol/L Carbon Dioxide 29 (22-29) mmol/L Anion Gap 10 L (12-20) BUN 19 H (9-16) mg/dL Creatinine 0.90 (0.5-1.4) mg/dL Estim Creat Clear Calc 63.6 Estimated GFR > 60 Random Glucose 178 H (60-115) mg/dL Calcium 9.4 (8.4-10.2) mg/dL Total Bilirubin 0.3 (0.0-1.0) mg/dL AST 20 (5-31) U/L ALT 17 (0-31) U/L Alkaline Phosphatase 48 (39-117) U/L Troponin I High Sens < 2.7 (<3.5-17.0) ng/L Total Protein 7.0 (6.5-8.0) g/dL Albumin 3.9 (3.5-5.0) g/dL COVID-19 (LETY) Negative (Negative) COVID-19 Clin Com See Note Influenza Type A (RIZWAN) Negative (Negative) Influenza Type B (RIZWAN) Negative (Negative) Influenza A & B Note See Note Independent Interpretation I performed an independent interpretation of an: EKG Critical Care Time Critical Care Time Critical Care Time: Yes Total Critical Care Time: 60 Attestation: I have personally provided critical care time. Time includes review of lab data, radiology results, discussion with consultants, and monitoring for potential decompensation. Intervention performed as documented. Discharge Plan Discharge Clinical Impression: Benign paroxysmal positional vertigo, Orthostatic hypotension Patient Disposition: Still a Patient Instructions: Benign Paroxysmal Positional Vertigo (ED), Hypotension (ED) Additional Instructions: Please follow-up with your primary care physician tomorrow. If you have any worsening or new symptoms, please return to the emergency room or call 911 Prescriptions: New meclizine 50 mg tablet 50 mg PO BID PRN (Reason: dizziness) Qty: 14 0RF No Action lisinopril 2.5 mg tablet 2.5 mg PO DAILY Qty: 30 3RF cholecalciferol (vitamin D3) 50 mcg (2,000 unit) tablet 50 mcg PO DAILY Qty: 30 11RF esomeprazole magnesium [Nexium] 40 mg capsule,delayed release(DR/EC) 40 mg PO DAILY Qty: 30 5RF Linzess 145 mcg capsule 145 mcg PO DAILY Qty: 30 2RF docusate sodium 100 mg capsule 200 mg PO DAILY Qty: 180 1RF ferrous gluconate 324 mg (38 mg iron) Tablet 324 mg PO DAILY Qty: 30 6RF albuterol sulfate 90 mcg/actuation HFA aerosol inhaler 1 inh inhalation QID PRN (Reason: shortness of breath or wheezing) Qty: 6.7 0RF amitriptyline 10 mg tablet 1 tab PO BEDTIME carboxymethylcellulose sodium [Lubricating Plus] 0.5 % dropperette 1 drp ophthalmic (eye) QID PRN (Reason: Dry Eye(S)) atorvastatin 80 mg tablet 80 mg PO DAILY acetaminophen [Tylenol 8 Hour] 650 mg tablet extended release 650 mg PO Q12H fluticasone propionate 50 mcg/actuation spray,suspension 1 - 2 spray intranasal DAILY PRN (Reason: Congestion) ascorbic acid (vitamin C) [Vitamin C] 500 mg tablet 500 mg PO DAILY uepexxibox-vrpdlqspqmhux-spok 50-325-40 mg tablet 1 tab PO DAILY (DME) blood pressure test kit-large Kit See Rx Instructions .ROUTE DAILY Qty: 1 Rx Instructions: As directed ferrous gluconate 324 mg (38 mg iron) tablet 324 mg PO Q OTHER DAY lidocaine 5 % adhesive patch,medicated 5 patch topical DAILY cyanocobalamin (vitamin B-12) 1,000 mcg tablet 1,000 mcg PO DAILY sucralfate 1 gram tablet 1 g PO BEDTIME Qty: 30 2RF sennosides [Natural Senna Laxative] 8.6 mg tablet 17.2 mg PO BEDTIME Qty: 60 2RF Print Language: Palauan
[2024-03-25 22:37] LABS: MANUAL DIFF FLAG NO
[2024-03-25] MEDS: Meclizine HCl 25 MG TABLET 50 MG PO (22:37)
[2024-03-25 22:39] LABS: Basophils Percent Auto 0.4 % (0-2); Eosinophils Absolute Auto 0.1 X10*3/uL (0.0-0.4); Eosinophils Percent Auto 2.3 % (0-4); Hematocrit 32.8 % (37.0-47.0); Hemoglobin 10.5 g/dl (12.0-16.0); Imm Gran Abs Auto 0.01 X10*3/uL (0.00-0.03); Imm Gran Pct Auto 0.2 % (0.0-0.4); Lymphocytes Absolute Auto 1.1 X10*3/uL (1.2-4.9); Lymphocytes Percent Auto 21.4 % (20-40); Mean Corpuscular Hemoglobin 27.6 pg (27.0-33.0); Mean Corpuscular Volume 86.1 fL (80.0-98.0); Mean Platelet Volume 12.6 fL (9.4-12.3); Monocytes Absolute Auto 0.4 X10*3/uL (0.1-1.2); Monocytes Percent Auto 6.6 % (2-11); Neutrophils Absolute Auto 3.7 x10*3/uL (2.0-8.3); Neutrophils Percent Auto 69.1 % (45-73); Platelet Count 148 X10*3/uL (160-400); Red Blood Count 3.81 X10*6/uL (4.20-5.50); Red Cell Distribution Width 13.8 % (11.0-16.0); White Blood Count 5.3 X10*3/uL (4.8-10.8)
[2024-03-25] MEDS: Acetaminophen 325 MG TABLET 975 MG PO (22:39)
[2024-03-25 22:54] LABS: Alanine Aminotransferase 17 U/L (0-31); Albumin Level 3.9 g/dL (3.5-5.0); Alkaline Phosphatase 48 U/L (39-117); Anion Gap 10 (12-20); Aspartate Amino Transferase 20 U/L (5-31); Bilirubin Total 0.3 mg/dL (0.0-1.0); Blood Urea Nitrogen 19 mg/dL (9-16); Calcium 9.4 mg/dL (8.4-10.2); Carbon Dioxide 29 mmol/L (22-29); Chloride 105 mmol/L (96-108); Creatinine Clr Calc Pharmacy 63.6; Estimated Glomerular Filt Rate > 60; Glucose Random 178 mg/dL (60-115); Sodium 140 mmol/L (135-145)
[2024-03-25 23:01] LABS: Troponin-I High Sensitivity < 2.7 ng/L (<3.5-17.0)
[2024-03-25 23:15] LABS: COVID-19 Test Negative (Negative); IDNOW Serial# 08D9AD1C; IDNOW Serial# 152EDE1D; Influenza A Negative (Negative); Influenza B2 Negative (Negative)
[2024-03-26] MEDS: Ondansetron ODT 4 MG TAB.RAPDIS TRANSLINGU (02:47)
[2024-03-26] MEDS: diazePAM 2 MG TABLET PO (02:47)
[2024-03-26 02:58] VITALS: BP 135/49; PULSE 52
[2024-03-26 03:01] VITALS: BP 142/56; PULSE 53
[2024-03-26 03:02] VITALS: BP 109/55; PULSE 72
[2024-03-26 03:05] VITALS: BP 109/55; PULSE 72; RESP 16; TEMP 36.2; O2SAT 97
[2024-03-26] MEDS: 0.9 % Sodium Chloride 1,000 ML 999 ML IVCONT (03:09)
[2024-03-26 07:46] VITALS: BP 109/55; PULSE 72; RESP 13; TEMP 36.8; O2SAT 98
--- NOTE | 2024-03-26 08:50 | PC.NURSE ---
Pt ambulatory around unit with lab technician, denies dizziness and feels safe for discharge home.
[2024-03-26 08:59] VITALS: BP 109/55; PULSE 72; RESP 13; TEMP 36.8; O2SAT 98
== END 2024-03-26 09:00 | disposition home or self-care (01) ==
PROVIDERS: Emergency Provider Emergency Medicine
DX: H81.13 Benign paroxysmal vertigo, bilateral (principal); I95.1 Orthostatic hypotension; R11.0 Nausea; R00.1 Bradycardia, unspecified; Z11.52 Encounter for screening for COVID-19; Z79.899 Other long term (current) drug therapy
CPT/HCPCS: 36415; 80053; 84484; 85025; 87502; 87635; 93005; 96360; 96361; 99285

== ENCOUNTER → 2024-03-25 22:14 | Outpatient (BNV) | payer MEDICAID, SELFPAY | PROVIDERS: Emergency Provider Emergency Medicine; Visit Provider Internal Medicine Cardiovascular Disease | DX: R94.31 Abnormal electrocardiogram [ECG] [EKG] (principal) | CPT/HCPCS: 93010 ==

== ENCOUNTER 2024-04-08 09:37 | Outpatient (REF) | payer MEDICAID, SELFPAY ==
[2024-04-08 12:16] LABS: Anion Gap 12 (12-20); Blood Urea Nitrogen 18 mg/dL (9-16); Calcium 9.5 mg/dL (8.4-10.2); Carbon Dioxide 28 mmol/L (22-29); Chloride 105 mmol/L (96-108); Estimated Glomerular Filt Rate > 60; Glucose Random 96 mg/dL (60-115); Potassium 3.8 mmol/L (3.3-5.1); Sodium 141 mmol/L (135-145)
== END 2024-04-08 09:38 | disposition home or self-care (01) ==
LOC: HO.HHCL 09:37
PROVIDERS: Visit Provider Nurse Practitioner
DX: M25.512 Pain in left shoulder (principal)
CPT/HCPCS: 36415; 80048

== ENCOUNTER 2024-04-16 08:47 | Outpatient (REF) | payer MEDICAID, SELFPAY ==
--- NOTE | ~2024-04-16 | MR_ITS ---
EXAMINATION: MR SHOULDER WITHOUT CONTRAST, LEFT CLINICAL INFORMATION: Increasing left shoulder pain. Evaluate for rotator cuff tendon tear. COMPARISON: Left shoulder radiographs dated 01/25/2024. TECHNIQUE: MRI of the shoulder without contrast was performed on a high-field scanner. FINDINGS: ROTATOR CUFF: Ywyltdll-wi-onqeyu supraspinatus tendinosis with anterior articular surface partial tearing which extends posteriorly to the intrasubstance of the infraspinatus tendon. Tearing measures approximately 2.3 x 2.6 cm (AP x ML). There appears to be small full-thickness component to the tear at the level of the humeral head apex. Additional anterior bursal surface partial tearing of the supraspinatus tendon insertion measuring approximately 0.9 x 0.5 cm (AP x ML). More mild infraspinatus and subscapularis tendinosis. No muscle atrophy or fatty infiltration. BICEPS: Prominent thickening and heterogeneity of the intra-articular long head biceps tendon, consistent with prominent tendinosis and linear intrasubstance partial tearing. CORACOACROMIAL ARCH: The undersurface of the acromion is curved with tiny subacromial spurs. Moderate acromioclavicular osteoarthritis. Fluid within the subacromial-subdeltoid bursa related to the full-thickness component of the rotator cuff tendon tear. LABRUM/CAPSULE: Mild degenerative signal within the superior labrum with a possible shallow nondisplaced undersurface tear. Intact inferior joint capsule. GLENOHUMERAL JOINT/MARROW: Articular cartilage thinning with a focal full-thickness defect at the medial aspect of the humeral head measuring up to 0.7 cm in craniocaudal dimension. Small marginal osteophytes. Prominent degenerative cystic change within the greater tuberosity. Vaczz-gy-gluhfxja joint effusion. MR/MR shoulder LT wo con IMPRESSION: 1. Mkoozoaw-du-mxdoxn supraspinatus tendinosis with anterior articular surface partial tearing extending posteriorly to the intrasubstance of the infraspinatus tendon. There appears to be a small full-thickness component to the tear at the level of the humeral head apex. Additional anterior bursal surface partial tearing of the supraspinatus tendon insertion measuring 0.9 x 0.5 cm (AP x ML). Mild infraspinatus and subscapularis tendinosis. 2. Prominent intra-articular long head biceps tendinosis with linear intrasubstance partial tearing. 3. Moderate acromioclavicular osteoarthritis with tiny subacromial spurs. 4. Degenerative signal within the superior labrum with a possible shallow nondisplaced undersurface tear. 5. Mild glenohumeral osteoarthritis. Walvl-lj-tuiwisvk joint effusion. Electronically signed by: Yaya Blakely MD 04/25/2024 09:05 PM GRIFFIN ESQUIVEL
== END 2024-04-16 08:48 | disposition home or self-care (01) ==
LOC: HO.MRI 08:47
PROVIDERS: Visit Provider Nurse Practitioner
DX: M25.512 Pain in left shoulder (principal)
CPT/HCPCS: 73221

== ENCOUNTER 2024-05-10 12:25 | Outpatient (AMB) | payer MEDICAID, SELFPAY ==
--- NOTE | 2024-05-10 12:37 | MHC.OFFVIS ---
Vital Signs 05/10/24 12:39 Height 5 ft 7 in Weight 158 lb BMI 24.7 BP 125/59 L Blood Pressure Location Lt brachial Position Sitting Pulse 68 Intake Visit Reasons: GERD f/u r/s from 04/15/24 Intake Note: Patient follow up for GERD Patient cc: GERD on and off, abdominal pain/bloating, and constipation, denies any other GI issues. Bar Attendant Required: Yes Bar Attendant Name: [facility] Accompanied by: Self / Same As Patient Allergies Penicillins [PENICILLINS] Allergy (Intermediate, Verified 03/25/24 22:09) RASH Hydrocodone-Acetaminophen Allergy (Unknown, Uncoded 03/25/24 22:09) tachycardia narcotics Adverse Reaction (Mild, Uncoded 03/25/24 22:09) heart palpitations HPI HPI GERD f/u r/s from 04/15/24: Details: LAST VISIT GERD (gastroesophageal reflux disease) Chronic idiopathic constipation Postprandial epigastric pain Plan Will start patient on Nexium in the morning. She will take sucralfate at bedtime. Discussed with patient avoiding dietary triggers and late night snacking. Staying upright for minimal 3 hours after meals discussed with her. Patient will start taking Linzess to help her move her bowels better. She was encouraged to increase fluid intake and activity to promote better bowel motility. Patient will return to our office in 5 weeks. Will schedule colonoscopy, booking into September now. Will discuss colonoscopy, patient will be sent for upper endoscopy as well to rule out gastritis, duodenitis, esophagitis, gastric or peptic ulcers, Diaz's, H pylori. Patient is agreeable to this plan and verbalizes understanding of instructions. She was given the opportunity to ask questions and all questions answered. ? Thank you for allowing me to participate in her care Medications New sucralfate 1 g PO BEDTIME 30 tabs 2RF R19.7 linaclotide (Linzess) 145 mcg PO DAILY 30 caps 2RF esomeprazole magnesium (Nexium) 40 mg PO DAILY 30 caps 5RF K21.9 Refilled docusate sodium 200 mg (2 x 100 mg) PO DAILY 180 caps 1RF K59.04 TODAY'S VISIT Patient is here today for follow-up. Patient reports that since the last time I have seen her she was doing well, however reports that Nexium has not been working for her anymore. Patient feels like the Dexilant was better and she would like to go back on it. Patient reports that Colace has been working, however she still is having trouble moving her bowels. Tried Linzess, however it caused diarrhea and patient stopped taking it. Patient used to take senna and reports that she was doing well. Would like to receive a refill today. Patient denies any melena, hematochezia, unintentional weight loss or ribbon like stools. Patient denies any nausea or vomiting. Reports occasional dyspepsia depends on what she eats without dysphagia or odynophagia. [facility] Medical History Chronic asthma HTN (hypertension) Arthritis High cholesterol Surgical History History of cholecystectomy History of esophagogastroduodenoscopy (EGD) Hx of colonoscopy (~2019) Family History Mother Diabetes HTN (hypertension) Paternal Aunt Cancer of neck Paternal Uncle Cancer of neck Social History Household Members: Children Housing: Apartment Are you a primary janitor caretaker to a significant other at home: No Do you presently have visiting nurse or other home services: No Alcohol intake: never Patient Tobacco Use Status: Never used Tobacco service: No Current occupational status: disabled Review of Systems Const Denies weight gain and Denies weight loss ENT Reports no additional complaints, Denies dysphagia and Denies odynophagia Card Reports no additional complaints Resp Reports no additional complaints GI Reports abdominal pain (Epigastric), Denies belching, Denies melena, Denies bloating, Reports constipation, Denies dysphagia, Denies excessive flatus, Denies dyspepsia, Reports heartburn, Denies diarrhea, Denies loose stools, Denies nausea, Denies odynophagia and Denies vomiting Reports no additional complaints Musc Reports no additional complaints Neuro Reports no additional complaints Psych Reports no additional complaints Endo Reports no additional complaints Physical Exam Vital Signs: Last Vital Signs Pulse 68 05/10/24 12:39 BP 125/59 L 05/10/24 12:39 BMI result Body Mass Index 24.7 Const General: healthy appearing, no acute distress and well developed Nutritional Appearance: well nourished Orientation/consciousness: patient oriented x3 Resp Effort & Inspection: normal respiratory effort, able to speak in complete sentences, no tracheal deviation and symmetric chest movement Auscultation: clear to auscultation bilaterally Cardio Rate: regular rate GI Inspection: Yes normal to inspection and No distended Palpation (GI): Soft to palpation, not firm, nontender and No hepatosplenomegaly present Auscultation: normal bowel sounds General: Yes no CVA tenderness Back/Spine/Pelvis Back: no CVA tenderness Skin General skin exam: elasticity normal, turgor normal and dry skin Neuro General: patient oriented x3 Psych Appearance: grossly normal Mental Status: mental status grossly normal Assessment & Plan Assessment & Plan (1) GERD (gastroesophageal reflux disease): Code(s): K21.9 - Gastro-esophageal reflux disease without esophagitis Category: Medical Qualifiers: Esophagitis presence: esophagitis presence not specified Qualified Code(s): K21.9 - Gastro-esophageal reflux disease without esophagitis (2) Chronic idiopathic constipation: Code(s): K59.04 - Chronic idiopathic constipation Category: Medical (3) Postprandial epigastric pain: Code(s): R10.13 - Epigastric pain (4) Dyspepsia: Code(s): R10.13 - Epigastric pain Plan Patient will stop taking Nexium and will start taking Dexilant per her request. Patient will call if she will continue to have epigastric pain, reflux and dyspepsia. Continue Colace. Patient can start taking Senokot increase fluid intake and activity to promote better bowel motility. Patient will follow-up in the office in 2 months, sooner on as needed basis. She is agreeable to plan of care and verbalizes understanding of instructions. She was given the opportunity to ask questions and all questions answered. Thank you for allowing me to participate in her care Medications: New dexlansoprazole (Dexilant) 60 mg PO DAILY 30 caps 3RF Refilled sennosides (Natural Senna Laxative) 17.2 mg (2 x 8.6 mg) PO BEDTIME 180 tabs 2RF constipation K59.00 - Constipation, unspecified Discontinued linaclotide (Linzess) Discontinued Reason: Stopped on Transfer 145 mcg PO DAILY 30 caps 2RF esomeprazole magnesium Discontinued Reason: Doctor's Order 40 mg PO QPM 30 caps 1RF K21.9 - Gastro-esophageal reflux disease without esophagitis Coding Level of Care Code Tele Est Pt Level 4 (76037) Complex EM visit Add On G2211 Diagnoses Gastroesophageal reflux disease, unspecified whether esophagitis present K21.9 Esophagitis presence: esophagitis presence not specified Chronic idiopathic constipation K59.04 Postprandial epigastric pain R10.13 Dyspepsia R10.13 Time Spent (min) 35 Comment 25 minutes spent with patient and additional 10 minutes spent reviewing her records
[2024-05-10 12:39] VITALS: BP 125/59; PULSE 68; BMI 24.7
== END 2024-05-10 12:57 | disposition home or self-care (01) ==
PROVIDERS: Visit Provider Nurse Practitioner Family
DX: K21.9 Gastro-esophageal reflux disease without esophagitis (principal); K59.04 Chronic idiopathic constipation; R10.13 Epigastric pain
CPT/HCPCS: 99214

== ENCOUNTER 2024-09-11 13:22 | Outpatient (AMB) | payer MEDICAID, SELFPAY ==
--- NOTE | 2024-09-11 13:25 | A.OFFVIS_ITS ---
Vital Signs 09/11/24 13:38 Height 5 ft 7 in Weight 160 lb BMI 25.1 BP 124/52 L Blood Pressure Location Rt brachial Position Sitting Pulse 62 Pulse Source Pulse Oximeter Pulse Oximetry (%) 98 Oxygen Delivery Method Room Air Intake Visit Reasons: Follow up 3 months Intake Note: ESTABLISHED PATIENT for mgmt of GERD + CIC. CC: C/O increased reflux and epigastric pain over the last few weeks. Pt reports recent change in PPI which has helped slightly but she still experiences sx. Pt also reports recent imaging ([facility] [place]) that was done which showed increased irritat ion. Pt would like to review this information. 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 Patient will call if she will continue to have epigastric pain, reflux and dyspepsia. Continue Colace. Patient can start taking Senokot increase fluid intake and activity to promote better bowel motility. Patient will follow-up in the office in 2 months, sooner on as needed basis. She is agreeable to plan of care and verbalizes understanding of instructions. She was given the opportunity to ask questions and all questions answered. ? Thank you for allowing me to participate in her care Medications New dexlansoprazole (Dexilant) 60 mg PO DAILY 30 caps 3RF Refilled sennosides (Natural Senna Laxative) 17.2 mg (2 x 8.6 mg) PO BEDTIME 180 tabs 2RF constipation K59.00 Discontinued linaclotide (Linzess) Discontinued Reason: Stopped on Transfer 145 mcg PO DAILY 30 caps 2RF esomeprazole magnesium Discontinued Reason: Doctor's Order 40 mg PO QPM 30 caps 1RF K21.9 TODAY'S VISIT Patient is here for follow-up. Patient is accompanied by her son who is translating for her per patient's request. Patient seen her nuclear engineering technician and had modified barium study order for dysphagia. Patient also reported sore throat. Had this study done about a month ago. Patient was told that her sore throat most likely is related to her reflux that still is not being very well controlled. Patient is taking Dexilant at bedtime. Reports her symptoms are random postprandially. Still not always emptying her bowels, takes Senokot as needed. Patient never tried to take it daily. Medical ass istant was able to get records from [facility] of modified barium swallow. There was no penetration or aspiration in for in joule phase of the barium swallow. Patient did cough during the procedure, most likely related to reflux that is not very well controlled. Denies any nausea or vomiting. Patient denies melena, hematochezia, unintentional weight loss or ribbon like stools. [facility] Medical History Chronic asthma HTN (hypertension) Arthritis High cholesterol Surgical History History of cholecystectomy History of esophagogastroduodenoscopy (EGD) Hx of colonoscopy (~2019) Family History Mother Diabetes HTN (hypertension) Paternal Aunt Cancer of neck Paternal Uncle Cancer of neck Social History Household Members: Children Housing: Apartment Are you a primary personal care home administrator to a significant other at home: No Do you presently have visiting nurse or other home services: No Alcohol intake: never Patient Tobacco Use Status: Never used Tobacco service: No Current occupational status: disabled Review of Systems Const Denies weight gain and Denies weight loss ENT Reports no additional complaints, Reports dysphagia and Denies odynophagia Card Reports no additional complaints Resp Reports no additional complaints GI Reports abdominal pain (Epigastric), Denies belching, Denies melena, Denies bloating, Reports constipation, Reports dysphagia, Denies excessive flatus, Denies dyspepsia, Reports heartburn, Denies diarrhea, Denies loose stools, Denies nausea, Denies odynophagia and Denies vomiting Reports no additional complaints Musc Reports no additional complaints Neuro Reports no additional complaints Psych Reports no additional complaints Endo Reports no additional complaints Physical Exam Const General: healthy appearing, no acute distress and well developed Nutritional Appearance: well nourished Orientation/consciousness: patient oriented x3 Resp Effort & Inspection: normal respiratory effort, able to speak in complete sentences, no tracheal deviation and symmetric chest movement Auscultation: clear to auscultation bilaterally Cardio Rate: regular rate GI Inspection: Yes normal to inspection and No distended Palpation (GI): Soft to palpation, not firm, nontender and No hepatosplenomegaly present Auscultation: normal bowel sounds General: Yes no CVA tenderness Back/Spine/Pelvis Back: no CVA tenderness Skin General skin exam: elasticity normal, turgor normal and dry skin Neuro General: patient oriented x3 Psych Appearance: grossly normal Mental Status: mental status grossly normal Assessment & Plan Assessment & Plan (1) GERD (gastroesophageal reflux disease): Code(s): K21.9 - Gastro-esophageal reflux disease without esophagitis Category: Medical Qualifiers: Esophagitis presence: esophagitis presence not specified Qualified Code(s): K21.9 - Gastro-esophageal reflux disease without esophagitis (2) Chronic idiopathic constipation: Code(s): K59.04 - Chronic idiopathic constipation Category: Medical (3) Postprandial epigastric pain: Code(s): R10.13 - Epigastric pain (4) Dyspepsia: Code(s): R10.13 - Epigastric pain Plan Patient is here today for follow-up. Recent modified barium swallow that was done at [facility] on August 01 did not show any oral or pharyngeal penetration. However patient did cough couple times during the study. Her symptoms of dysphagia most likely related to uncontrolled reflux. Patient does admit that she still feels like her reflux is not well controlled. We will add famotidine in the morning to take it half an hour before breakfast. Patient can continue Dexilant. Patient will be sent for upper GI study with barium swallow to evaluate reflux. Patient was encouraged to take Senokot daily to make sure that she empties her bowels completely. This might also help with improvement in her symptoms. Patient was encouraged to drink more water. Patient drinks a glass of water a day. She was instructed to drink for 8 oz bottles of water daily. Both patient and son are agreeable to plan of care verbalize understanding of instructions. They were given the opportunity to ask questions and all questions answered. Thank you for allowing me to participate in her care Orders: Orders [place] upper GI w Ba Swallow Today K21.9 - Gastro-esophageal reflux disease without esophagitis Medications: New famotidine (Pepcid) 20 mg PO DAILY 30 tabs 3RF K21.9 - Gastro-esophageal reflux disease without esophagitis Refilled sennosides (Natural Senna Laxative) 17.2 mg (2 x 8.6 mg) PO BEDTIME 180 tabs 2RF constipation K59.00 - Constipation, unspecified Coding Level of Care Code Est Pt Level 4 (15211) Complex EM visit Add On G2211 Diagnoses Gastroesophageal reflux disease, unspecified whether esophagitis present K21.9 Esophagitis presence: esophagitis presence not specified Chronic idiopathic constipation K59.04 Postprandial epigastric pain R10.13 Dyspepsia R10.13 Time Spent (min) 40 Comment 25 minutes spent with patient and additional 15 minutes spent reviewing her records
[2024-09-11 13:38] VITALS: BP 124/52; PULSE 62; O2SAT 98; BMI 25.1
--- OUTSIDE RECORDS SUMMARY | 2024-09-11 14:44 | XMS_ITS | Clinical Summary ---
Author Organization [employer] Address [address] [facility] [address] [place] [address] Care Team Providers Care School Treasurer Name Role Phone Fawn Whittington NP Primary Care Provider [phone] Kobe Hope MD Unavailable [phone] Harris Ring MD Unavailable [phone] Allergies Active Allergy Reactions Criticality Noted Date Comments Codeine 09/05/2022 Penicillin G 03/19/2019 Other reaction(s): Hives / Skin Rash Medications Diclofenac Sodium (Voltaren) 1 % gelIndications:Ar thritis Apply 2 g topically if needed in the morning and at bedtime (muscle pain). 100 g 3 09/06/19 23 Active ferrous gluconate (Fergon) 324 (38 Fe) MG tabletIndications :Pancytopenia (CMS/HCC) Take 1 tablet (324 mg) by mouth every other day. 45 tablet 1 05/10/20 23 Active loratadine (Claritin) 10 MG tabletIndications :Chronic sinusitis, unspecified location Take 1 tablet (10 mg) by mouth in the morning. 90 tablet 3 05/10/20 23 Active atorvastatin (Lipitor) 80 MG tabletIndications :Mixed hyperlipidemia Take 1 tablet (80 mg) by mouth Once per day. 90 tablet 3 10/04/19 24 2024 Active acetaminophen (Tylenol 8 Hour) 650 MG ER tablet TAKE 2 TABLETS BY MOUTH EVERY 8 HOURS NEEDED. SWALLOW WHOLE WITH WATER. DO NOT BREAK, CRUSH, DISSOLVE OR CHEW. 30 tablet 10/30/19 24 Active docusate sodium (Colace) 100 MG capsule Take 200 mg by mouth Once per day. 08/11/19 24 Active esomeprazole (NexIUM) [address] capsule Take 40 mg by mouth Once per day. 10/17/19 24 Active SUMAtriptan (Imitrex) 25 MG tabletIndications :Chronic migraine without aura without status migrainosus, not intractable TAKE 1 TABLET BY MOUTH AT ONSET OF MIGRAINE. MAY REPEAT ONCE AFTER 2 HOURS IF NEEDED. DO NOT EXCEED 2 DOSES/24 HOURS 9 tablet 11/06/19 24 Active ammonium lactate (Lac-Hydrin) 12 % lotion Apply topically if needed in the morning and at bedtime for dry skin. APPLY A THIN LAYER TOPICALLY TO AFFECTED AREA(S) TWICE DAILY NEEDED FOR ITCHING 400 mL 2 11/06/19 24 Active Multiple Vitamin (multivitamin) capsule Take as directed: Patient purchasing OTC Active aspirin-acetamino phen-caffeine (Excedrin Migraine) 250-250-65 MG tablet Take as directed: Patient purchasing OTC Active Lubricating Plus Eye Drops 0.5 % ophthalmic solution INSTILL 1 DROP IN EACH EYE THREE OR FOUR TIMES DAILY NEEDED 30 mL 5 01/19/20 24 Active Ventolin HFA 108 (90 Base) MCG/ACT inhalerIndication s:Moderate persistent asthma with acute exacerbation INHALE 2 PUFFS BY MOUTH EVERY 4 HOURS NEEDED FOR WHEEZING OR SHORTNESS OF BREATH 18 g 3 01/29/20 24 Active Blood Pressure kitIndications:Be nign essential hypertension 1 each 2 times daily. 1 kit 02/12/20 24 2024 Active lidocaine (Lidoderm) 5 % patchIndications: Arthritis APPLY 1 PATCH TOPICALLY TO SKIN, LEAVE ON FOR 12 HOURS AND OFF FOR 12 HOURS DIRECTED 30 patch 1 04/08/20 24 Active lisinopril 2.5 MG tabletIndications :Benign essential hypertension TAKE 1 TABLET BY MOUTH EVERY MORNING 90 tablet 1 04/16/20 24 Active nabumetone (Relafen) 750 MG tabletIndications :Arthritis TAKE 1 TABLET BY MOUTH TWICE DAILY IN THE MORNING AND IN THE EVENING 180 tablet 1 04/24/20 24 Active baclofen (Lioresal) 10 MG tabletIndications :Musculoskeletal pain TAKE 1 TABLET BY MOUTH THREE TIMES DAILY NEEDED 90 tablet 1 07/08/19 25 Active cyanocobalamin (Vitamin B-12) 1000 MCG tabletIndications :Pancytopenia (CMS/HCC) TAKE 1 TABLET BY MOUTH EVERY MORNING 90 tablet 3 07/10/19 25 Active cholecalciferol (Vitamin D-3) 20 MCG (800 UNIT) tablet Take 1 tablet (20 mcg) by mouth Once per day. 30 tablet 2 07/10/19 25 2024 Active fluticasone (Flonase) 50 MCG/ACT nasal spray INHALE 1 SPRAY IN EACH NOSTRIL TWICE DAILY DIRECTED 48 g 07/11/19 25 Active amitriptyline (Elavil) 25 MG tabletIndications :Chronic migraine without aura without status migrainosus, not intractable TAKE 1 TABLET BY MOUTH AT BEDTIME 30 tablet 2 08/06/19 25 Active Ascorbic Acid (vitamin C) 500 MG tabletIndications :Pancytopenia (CMS/HCC) TAKE 1 TABLET BY MOUTH EVERY EVENING 90 tablet 1 09/07/19 25 Active Ascorbic Acid (vitamin C) 500 MG tabletIndications :Pancytopenia (CMS/HCC) TAKE 1 TABLET BY MOUTH EVERY EVENING 90 tablet 06/14/19 25 2024 Discontinued Active Problems Problem Noted Date Diagnosed Date Bilateral shoulder pain 02/12/2024 Assessment & Plan (02/12/2024 1:27 PM EDT): -acute on chronic pain without reported evidence of injury -[place] [facility] [place] review -advised continue current pain regimen -referral for PT placed -discussed potential for joint injections if no improvement following PT Itching 08/02/2023 Assessment & Plan (08/02/2023 6:12 PM EDT): -likely due to dry skin -trial ammonium lactate for two times daily application -prescription sent to pharmacy Urinary urgency 08/02/2023 Assessment & Plan (08/02/2023 6:16 PM EDT): -low threshold for UTI as urgency has been present for over 1 year -referral to urogyn for further evaluation placed Arthritis 05/10/2023 Overview (05/10/2023): Bilateral knees Overweight (BMI 25.0-29.9) 05/10/2023 Assessment & Plan (05/10/2023 12:05 PM EST): -diet and daily exercise measures reviewed -weight loss encouraged -currently on statin therapy -pre-diabetic based on last A1c 5.7 (08/05/22) -lipids and A1c ordered Encounter for screening mamm ogram for malignant neoplasm of breast 05/10/2023 Chronic throat pain 05/10/2023 Assessment & Plan (05/10/2023 12:01 PM EST): -was seen in the ED 04/12 diagnosis with Sialoadenitis -ENT referral placed Routine adult health maintenance 05/10/2023 Assessment & Plan (05/10/2023 11:59 AM EST): -continued BP monitoring advised -flu and pneumonia vaccine received today -will obtain past [place] [facility] Is being followed by GI for GERD and constipation -mammogram ordered for routine screening -will address cervical cancer, HIV, and hepatitis screening at next visit Chronic right-sided thoracic back pain Chronic idiopathic constipation 11/15/2022 Overview (11/15/2022): 11/10/22: continue take Colace, rx Senokot 2 tablets every evening. fluid intake to promote better bowel motility. I will see patient in 3 months, sooner on as needed basis Chronic migraine without aur a without status migrainosus, not intractable 11/02/2022 Overview (11/15/2022): Improved w/ Fioricet in the past. Not improved w/ excedrin CT A of head WNL Assessment & Plan (08/02/2023 6:09 PM EDT): -restart amitriptyline at increased dose of 25 mg nightly -prescription for sumitriptan refilled -neurology referral placed Assessment & Plan (05/10/2023 12:11 PM EST): -no relief from previously prescribed venlafaxine -minimal relief from fioricet -will start amitriptyline 10 mg nightly and sumatriptan for abortive therapy -advised to discontinue fioricet and Excedrin -advised to monitor for and avoid headache triggers -new referral to neurology placed Assessment & Plan (11/15/2022 2:20 PM EDT): Refill fioricet, discussed risk of rebound headaches Also Rx venlafaxine for migraine prophylaxis Upcoming neuro appt Followup with new PCP Moderate persistent asthma without complication 08/02/2022 Overview (11/15/2022): 10/13/22: She had developed pneumonia 1 month ago. She then developed COVID. Then developed pneumonia again. She then had asthma exacerbation. She was treated with antibiotics. She is still using the inhaler. She still has sinusitis and sometimes it makes it hard for her to breathe. She has residual right chest pain. Chronic sinusitis 08/02/2022 Mixed hyperlipidemia 08/02/2022 Assessment & Plan (02/12/2024 1:18 PM EDT): -discussed implications for and the importance of elevated lipids -encouraged daily med compliance and dietary changes -discussed physical activity requirements -repeat lipids in 6 mo-1 year Assessment & Plan (08/02/2023 6:13 PM EDT): -patient reports inconsistent use of lipitor 80 mg -will refer to [facility] for assistance with medication organization to hopefully improve compliance Health care maintenance 08/02/2022 Overview (11/15/2022): Routine Health Maintenance: Immunizations: Up to date, due COVID Booster, discuss next visit HIV: CDC recommends that everyone between the ages of 13 and 64 get tested for HIV at least once as part of routine health care. For people with certain risk factors, CDC recommends getting tested at least once a year. Discuss next visit Hep C: Discuss next visit The USPSTF recommends screening for hepatitis C virus (HCV) infection in adults aged 18 to 79 years. One-time screening for most adults. Periodically screen persons with continued risk for HCV infection Hepatitis B: Discuss next visit 2022 guidelines CDC recommends screen all adults aged 18 years and older at least once in their lifetime using a triple panel test. patients screen every Pap Smear: No results found in next gen Shared decision-making guidelines. ACS: age 25-65 HPV swab every 5 years. USPSTF: age 21-25 cytology only q 3 y; age 25-29 cytology w/ reflex HPV q 3 y; age 30-65 PAP w/ HPV cotest q 5 years. Mammogram: 04/19/21 BIRADS 1 Colonoscopy: Patient had colonoscopy and upper endoscopy in 2013. Patient was diagnosed with superficial gastritis and diverticulitis, suggestion of adhesion and her colon were colonoscopy was not completed. Lung cancer: never smoker Pancytopenia 08/02/2022 Overview (11/15/2022): 10/13/22: hx; reflux and gastritis. She could also have iron malabsorption from celiac disease. B12 OR FOLATE DEFICIENCY: That can explain the pancytopenia. Anemia likely a combination of her in deficiency along with ACD. Checked ultrasound of the abdomen to look for any liver disease. From 11/02/20: No significant abnormality is seen. Fam hx of lymphoma Continue Ferrous gluconate 324mg every other day Assessment & Plan (08/02/2023 6:12 PM EDT): -closely followed by heme -continue iron supplementation as recommended by heme Assessment & Plan (05/10/2023 12:12 PM EST): -medications refilled -labs order placed Assessment & Plan (11/15/2022 2:19 PM EDT): CBC and iron panel not performed recently Pt reports worsening dizziness Check today Notify results Followup with new PCP Benign essential hypertension 04/04/2019 Assessment & Plan (02/12/2024 1:36 PM EDT): -BP slightly above target goal of <130/80 mmHg. -continue lisinopril 2.5 mg -microalbumin: ordered today -ASCVD risk: 7.2 % -daily BP monitoring advised. BP kit ordered today. -low salt diet and 30 min moderate intensity daily exercise recommended -Reviewed ED precautions to include chest pain, shortness of breath, severe headache, sudden vision changes or BP >=180/>=120 mmHg. -Call clinic if three or more BP readings >130/80 mmHg. -follow-up 3 months Gastroesophageal reflux disease 04/04/2019 Overview (11/15/2022): 11/10/22: Continue Dexilant, continue avoiding dietary triggers and late night snacking. Staying upright for minimum 3 hours after meals discussed with patient. Patient continues to be constipated which can contribute to her epigastric burning and occasional acid reflux Vitamin D deficiency 04/04/2019 Resolved Problems Problem Noted Date Diagnosed Date Resolved Date Bronchitis 12/14/2023 06/17/2024 Assessment & Plan (12/14/2023 4:05 PM EDT): Possible bacterial superinfection w worsening cough now productive over previous viral -COVID 19 infection Exam no wheezing normal lung exam today but used albuterol today prior coming -hydration advised -guaifenesin BID -start doxycycline BID for 5 days -([facility] allergy hx)--explained to avoid sun,and to take her vitamins and iron several hours from ATB -will hold on steroids for now w normal lung exam but if not improvement will need to be consider -alarm signs and symptoms discussed w pt COVID-19 12/04/2023 06/17/2024 Assessment & Plan (12/04/2023 10:43 AM EDT): Drink plenty of fluids and rest Quarantine as per CDC guidelines Paxlovid x 5 days medication list reviewed with patient she is aware to stop amitriptyline, Flonase and atorvastatin while in treatment and 5 days after If chest pain SOB, confusion patient should call EMS or go to ED [facility] Mild intermittent asthma 04/04/2019 Encounters Date Type Department Care Team Description 09/05/2024 Refill [facility] [address] [place] [address] Fwan Whittington NP Pancytopenia (CMS/HCC) 08/03/2024 Refill [facility] MED[facility] [address] [place] [address] Fawn Whittington NP Chronic migraine without aura without status migrainosus, not intractable 07/26/2024 Population Health Risk Score Community [facility] ([facility] Department [address] [place] [phone] Provider, Population Health Generic 07/11/2024 Refill [facility] & PEDS [address] [place] [address] Fawn Whittington NP Pancytopenia (CMS/HCC) 07/10/2024 Refill [facility] P[facility] [address] [place] [address] Fawn Whittington NP 07/10/2024 Orders Only [facility] [address] [place] [phone] Fawn Whittington NP 07/09/2024 Refill [facility] P[facility] [address] [place] [address] Fawn Whittington NP Pancytopenia (CMS/HCC) 07/07/2024 Refill [facility] [address] [place] [phone] Fawn Whittington NP Musculoskeletal pain 06/17/2024 1:40 PM EST Office Visit [facility] [address] [place] [phone] Janet Sands ANP Cough in adult (Primary Dx); Influenza A; Chronic sinusitis, unspecified location; Moderate persistent asthma without complication 06/14/2024 Telephone [facility] [address] [place] [phone] Fawn Whittington NP Change PCP 06/14/2024 Refill [facility] [address] [place] [address] Fawn Whittington NP Pancytopenia (CMS/HCC) 06/13/2024 Telephone [facility] [address] [place] [phone] Fawn Whittington NP chart prep from Last 3 Months Immunizations Name Administration Dates Next Due Influenza Injectable Quadriv alant Preservative Free IIV4 MDCK 03/04/2020 Influenza injectable quadriv alent IIV4 with preservative 02/12/2019 Influenza injectable quadriv alent preservative free 05/10/2023,02/15/2022,02/12/2021,2017,06/02/2017 Influenza, IIV3, injectable 04/08/2015 Influenza, seasonal, injecta ble, preservative free 02/12/2024 Pfizer Covid-19 Vaccine 12+ 11/03/2023(D eferred: Patient Refused),12/01/2020,11/10/2020 Pneumococcal Conjugate PCV 20 05/10/2023 RSV Bivalent 11/03/2023 Tdap 02/24/2016 Zoster, Recombinant 06/10/2019,04/04/2019 Social History Tobacco Use Types Packs/Day Years Used Date Smoking Tobacco: Never Passive Smoke Exposure: Never Smokeless Tobacco: Never Tobacco Cessation:Counseling Given: Not Answered Alcohol Use Standard Drinks/Week Comments Never 0 (1 standard drink = 0.6 oz pur e alcohol) Depression Answer Date Recorded Patient Health Questionnaire-9 Score 3 02/12/2024 Patient Health Questionnaire-9 Score 3 02/12/2024 Last PHQ-9: Questionnaire Data Not on file 0 02/12/2024 Housing Stability Answer Date Recorded What is your housing situation today? I have julianne chapman 02/12/[address] you li ve. Do you have problems with any of the following? None of the above 02/12/2024 Food Insecurity Answer Date Recorded Within the past 12 months, y ou worried that your food would run out before you got money to buy more: Sometimes True 2023 Within the past 12 months,th e food you bought just didn't last and you didn't have enough money to get more: Sometimes True 02/12/2024 Transportation Answer Date Recorded In the past 12 months, has l ack of transportation kept you from medical appts, meetings, work or from getting things needed for daily living? No 02/12/2024 Utilities Answer Date Recorded In the past 12 months, has t he electric, gas, oil or water company threatened to shut off services in your home? No 02/12/2024 Depression Answer Date Recorded Patient Health Questionnaire-2 Score 0 02/12/2024 Internet Access Answer Date Recorded Internet Access Q1 Yes 02/12/2024 Internet Access Q2 Not on file 02/12/2024 Comments Unknown Sex and Gender Information Value Date Recorded Sex Assigned at Female 03/14/2022 10:36 AM EDT Legal Sex Female 10:36 AM EDT Gender Identity Female 03/14/2022 10:36 AM EDT Sexual Orientation Straight 03/14/2022 10 :36 AM EDT Last Filed Vital Signs Vital Sign Reading Time Taken Comments Blood Pressure 125/65 06/17/2024 1:36 PM EST Pulse 86 06/17/2024 1:36 PM EST Temperature 36.8 ??C (98.2 ??F) 06/17/2024 1:36 PM ES T Respiratory Rate 18 06/17/2024 1:36 PM EST Oxygen Saturation 96% 06/17/2024 1:36 PM EST Inhaled Oxygen Concentration - - Weight 72 kg (158 lb 12.8 oz) 06/17/2024 1:36 PM EST Height 170.2 cm (5' 7 ) 06/05/2024 4:06 PM EST Body Mass Index 24.87 06/05/2024 4:06 PM EST Plan of Treatment Health Maintenance Due Date Last Done Comments CT Colonography 1959 FIT DNA/Cologuard 1959 FIT 1959 FOBT 1959 HIV Screening 1960 Sigmoidoscopy 1959 Hepatitis C Screening 09/29/1977 Pap Smear 09/29/1980 Cervical Cancer Screening 09/29/1989 HPV/Cotest 09/29/1989 Colonoscopy 08/14/2023 08/13/2013 Colorectal Cancer Screening 08/14/2023 Mammogram 06/16/2024 06/16/2023, 12/0 10/2020, 04/19/2021 Diabetes: Hemoglobin A1C 02/05/2025 024, 08/05/2022, 08/23/2021, Additional history exists Alcohol/Substance Use Screening 02/11/2025 02/12/2024 Depression Screening 02/11/2025 02/12/2024, 02/12/20 24 SDOH Screening 02/11/2025 02/12/2024 Tobacco Screening 06/17/2025 06/17/2024 DTaP/Tdap/Td Vaccines (2 - Td or Tdap) 02/23/2026 02/24/2016 Lipid Panel 02/05/2029 02/06/2024, 07/14, 08/23/2021, Additional history exists Zoster Vaccines Completed 06/10/2019, 04/04/2019 COVID-19 Vaccine Discontinued 12/01/2020, 11/10/2020 Pneumococcal Vaccine: 50+ Years Completed 05/10/2023 RSV Patients and Patients Aged 60 years or older Completed 11/03/2023 Influenza Vaccine Completed 02/12/2024, , 02/15/2022, Additional history exists HIB Vaccines Aged Out No longer eligi ble based on patient's age to complete this topic HPV Vaccines Aged Out No longer eligi ble based on patient's age to complete this topic Hepatitis A Vaccines Aged Out No long er eligible based on patient's age to complete this topic Hepatitis B Vaccines Aged Out No long er eligible based on patient's age to complete this topic IPV Vaccines Aged Out No longer eligi ble based on patient's age to complete this topic Meningococcal Vaccine Aged Out No daniela isabel eligible based on patient's age to complete this topic RSV under 20 months Aged Out No longe r eligible based on patient's age to complete this topic Rotavirus Vaccines Aged Out No longer eligible based on patient's age to complete this topic Goals Goal Patient Goal Type Associated Problems Recent Progress Patient-Stated? Author Blood Pressure < 150/90 Blood Pressure 125/65( 025 1:36 PM EST) No Yung Isaacs Procedures Procedure Name Priority Date/Time Associated Diagnosis Comments POCT INFLUENZA B (ID NOW RAPID MOLECULAR) Routine 06/17/2024 1:54 PM EST Cough in adult POCT INFLUENZA A (ID NOW RAPID MOLECULAR) Routine 06/17/2024 1:54 PM EST Cough in adult POCT RAPID STREP A Routine 06/17/2024 1: 54 PM EST Cough in adult POCT RAPID COVID ANTIGEN Routine 06/17/2024 1:54 PM EST Cough in adult HEMOGLOBIN A1C Routine 02/06/2024 9:55 AM EDT LIPID PANEL, STANDARD Routine 02/06/2024 9:55 AM EDT BI MAMMOGRAM SCREENING TOMOSYNTHESIS BILATERAL Routine 06/16/2023 1:10 PM EST HM COLONOSCOPY Routine 08/13/2013 10:20 AM EDT from Last 3 Months or Most Recently Relevant to Health Maintenance Results * Influenza B (ID NOW Rapid Molecular) (06/17/2024 1:54 PM EST) [facility] Influenza B Negative Negative, Indeterminate [facility] Swab 06/17/2024 1:54 PM EST Janet Sands ANP POINT OF CARE TEST ENTER/EDIT OR DERABLES Final Result Performing Organization Address [facility]/ZIP Co de Phone Number [facility] [address] [place] [phone] * Influenza A (ID NOW Rapid Molecular) (06/17/2024 1:54 PM EST) [facility] Influenza A Negative Negative, Indeterminate [facility] Swab 06/17/2024 1:54 PM EST Janet Sands ANP POINT OF CARE TEST ENTER/EDIT OR DERABLES Final Result Performing Organization Address [facility] Co de Phone Number [facility] [address] [place] [phone] * POCT Rapid COVID Ag (06/17/2024 1:54 PM EST) [facility] Rapid COVID Ag Negative [facility] Swab 06/17/2024 1:54 PM EST Janet Sands ANP POINT OF CARE TEST ENTER/EDIT OR DERABLES Final Result Performing Organization Address [facility] Co de Phone Number [facility] [address] [place] [phone] * POCT rapid strep A manually resulted (06/17/2024 1:54 PM EST) [facility] Rapid Strep A Screen Negative Negative, None Detected [facility] Swab 06/17/2024 1:54 PM EST us Janet ZEPEDA POINT OF CARE TEST ENTER/EDIT OR DERABLES Final Result Performing Organization Address [facility] Co de Phone Number [facility] [address] [place] [phone] * Hemoglobin A1c (02/06/2024 9:55 AM EDT) Hemoglobin A1c 5.7 <6.0 % [facility] Comment:Hemoglobin A1C Refer ence Range Adults: 4.8 - 6.0 % Non diabetic: < 6.0 % Goal: < 7.0 %Additional Action Suggested: > 8.0 %Note: Hemoglobin A1c results are invalid for patients with abnormal amounts of HbF. Blood transfusions may impact the HbA1c concentration in the patient sample. Estimated Average Glucose 117 mg/dL [facility] Comment:eAG = Estimated ave rage glucose which is %A1C expressed asaverage glucose, using the formula of the [id number] Glucose study (ADAG), Diabetes Care, Vol.31,#8,2007 02/06/2024 9:55 AM EDT 02/06/2024 11:14 AM EDT Fawn Whittington NP LAB BLOOD ORDERABLES Final Resu lt Performing Organization Address [facility] Co de Phone Number [facility] [address] [place] [phone] * (ABNORMAL) Lipid Panel, Standard (02/06/2024 9:55 AM EDT) Triglycerides 74 <150 mg/dL [facility] Comment:Desirable Triglyceri de: less than 150 mg/dLBorderline High Triglyceride 150-199 mg/dLHigh Triglyceride: 200-499 mg/dLVery High Triglyceride: greater than or equal to 5OO mg/dL Cholesterol 216(H) <200 mg/dL [facility] Comment:Desirable Cholestero l: less than 200 mg/dLBorderline High Cholesterol: 200-239 mg/dLHigh Cholesterol: greater than 239 mg/dL LDL Cholesterol Calculated 141(H) <100 mg/dL [facility] Comment:Desirable LDL: less than 100 mg/dLNear Optimal/Above Optimal LDL: 110- 129 mg/dLBorderline High LDL: 130-159 mg/dLHigh LDL: 160-189 mg/dLVery High LDL: greater than or equal to 190 mg/dL HDL Cholesterol 61 >40 mg/dL [facility] Comment:Desirable HDL: great er than 40 mg/dL Note: This HDL assay may give artificially low results in patients with liver disease. 02/06/2024 9:55 AM EDT 02/06/2024 11:14 AM EDT Fawn Whittington ENVIRONMENTAL ENGINEERING ASSISTANT LAB BLOOD ORDERABLES Final Resu lt [facility] [address] [place] [phone] * BI Mammogram Screening Tomosynthesis Bilateral (06/16/2023 1:10 PM EST) Anatomical Region Laterality Modality Breast Bilateral Mammography 06/16/2023 1:10 PM EST Narrative 07/08/2023 11:31 AM EST ? [facility] ? [address] ?[place] [address] ? Mammography Report ? Signed ? Patient: Larry Pineda,Donna ?MR#: [id number] ?? [id number] ? : 1960 ?Acct:[id number] ? Age/Sex: 62 / F ?ADM Date: 02/02/24 ? Loc: HO.MAMMO ? Attending Dr: Fawn Appram ENVIRONMENTAL ENGINEERING ASSISTANT ? Ordering Physician: Appram,Fawn ?Results: 1Negative ? Date of Service: 06/16/23 ?Follow Up: 1 Year From Orig ?? inal Mammogram ? Procedure(s): MM tomosynthesis screening BI ?? Accession Number(s): [id number] ? cc: Fawn Whittington ? EXAMINATION: ?? MM SCREENING DIGITAL BREAST TOMOSYNTHESIS, BILATERAL ? CLINICAL INFORMATION: ? Screening. Asymptomatic. ? COMPARISON: ?? Mammography: This study is compared with prior exams dating back to ?? 2017. ? TECHNIQUE: ?? Digital breast tomosynthesis is performed in both the craniocaudal and ?? mediolateral oblique views along with computer-aided detection (CAD). ?? Synthesized 2D images are generated from the tomosynthesis. ? FINDINGS: ?? There are scattered areas of fibroglandular density (ACR BI-RADS breast ?? composition Category b). ? There are no significant masses, abnormal calcifications, or other ?? abnormalities. ? MM/MM tomosynthesis screening BI ?? IMPRESSION: ?? No mammographic evidence of malignancy. ? ASSESSMENT: ? BI-RADS BI-RADS 1 - Negative ? RECOMMENDATION: ?? Routine annual mammography screening. ? 1 year F/U ? This examination should not preclude the clinical evaluation of a ?? suspicious palpable abnormality. ? This patient's information was entered into a reminder system with a ?? target due date for their next mammogram. ? Dictated By: ?Sammi Crump MD ? Signed By: ?<Electronically signed by Sammi Crump MD in OV> ? 07/08/23 1128 ? DD/ ? TD/TT: ? Grade Foreman: ? Procedure Note Krishna, Image - 07/08/2023 [facility] [address] [place], [place] [address] Mammography Report Signed Patient: Crystal Panchal MMR#: [id number] : 1960Acct:[id number] Age/Sex: 62 / FADM Date: 06/16/23 Loc: HO.MAMMO Attending Dr: Fawn Whittington ENVIRONMENTAL ENGINEERING ASSISTANT Ordering Physician: Fawn WhittingtonResults: 1Negative Date of Service: 06/16/23Follow Up: 1 Year From Orig inal Mammogram Procedure(s): MM tomosynthesis screening BI Accession Number(s): [id number] cc: Fawn Whittington EXAMINATION: MM SCREENING DIGITAL BREAST TOMOSYNTHESIS, BILATERAL CLINICAL INFORMATION: Screening. Asymptomatic. COMPARISON: Mammography: This study is compared with prior exams dating back to 2017. TECHNIQUE: Digital breast tomosynthesis is performed in both the craniocaudal and mediolateral oblique views along with computer-aided detection (CAD). Synthesized 2D images are generated from the tomosynthesis. FINDINGS: There are scattered areas of fibroglandular density (ACR BI-RADS breast composition Category b). There are no significant masses, abnormal calcifications, or other abnormalities. MM/MM tomosynthesis screening BI IMPRESSION: No mammographic evidence of malignancy. ASSESSMENT: BI-RADS BI-RADS 1 - Negative RECOMMENDATION: Routine annual mammography screening. 1 year F/U This examination should not preclude the clinical evaluation of a suspicious palpable abnormality. This patient's information was entered into a reminder system with a target due date for their next mammogram. Dictated By: Sammi Crump MD Signed By: <Electronically signed by Sammi Crump MD in OV> 07/08/23 1128 DD/ 1310 TD/TT: Grade Foreman: Fawn Whittington NP IMG BI PROCEDURES Edited Result - Final * Hm Colonoscopy (08/13/2013 10:20 AM EDT) Historical Provider HEALTH MAINTENANCE Final Result from Last 3 Months or Most Recently Relevant to Health Maintenance Insurance C3 Care Teams School Treasurer Relationship Specialty Start Date End Date Fawn Whittington NP [address] [place] [address] PCP - General Family Medicine 02/21/23 Kobe Hope MD [address] [place] [address] Hematology and Oncology 08/02/23 Harris Ring MD [address] [place] [address] Otolaryngology 08/02/23 Tanmay Meza Cash Office WorkerForest Manager 07/13/23
--- OUTSIDE RECORDS SUMMARY | 2024-09-11 14:44 | XMS_ITS | Encounter Summary ---
Author Organization [employer] Address [address] [facility] 7t [place] [address] Care Team Providers Care Casino Cage Manager Name Role Phone Fawn Whittington NP Primary Care Provider [phone] Kobe Hope MD Unavailable [phone] Harris Ring MD Unavailable [phone] Encounter Details Date Type Department Care Team (Late st Contact Info) Description 10/16/2023 Orders Only [facility] MEDICINE [address] [place] [address] Provider, MD April Social History Tobacco Use Types Packs/Day Years Used Date Smoking Tobacco: Never Passive Smoke Exposure: Never Smokeless Tobacco: Never Alcohol Use Standard Drinks/Week Comments Never 0 (1 standard drink = 0.6 oz pur e alcohol) Depression Answer Date Recorded Patient Health Questionnaire-9 Score 0 11/02/2022 Housing Stability Answer Date Recorded What is your housing situation today? I have julianne chapman 03/02/[address] you li ve. Do you have problems with any of the following? None of the above 03/02/2023 Food Insecurity Answer Date Recorded Within the past 12 months, y ou worried that your food would run out before you got money to buy more: Never True 03/02/2023 Within the past 12 months,th e food you bought just didn't last and you didn't have enough money to get more: Never True Transportation Answer Date Recorded In the past 12 months, has l ack of transportation kept you from medical appts, meetings, work or from getting things needed for daily living? No 03/02/2023 Utilities Answer Date Recorded In the past 12 months, has t he electric, gas, oil or water company threatened to shut off services in your home? No 03/02/2023 Depression Answer Date Recorded Patient Health Questionnaire-2 Score 0 11/02/2022 Comments Unknown Sex and Gender Information Value Date Recorded Sex Assigned at Female 03/14/2022 10:36 AM EDT Legal Sex Female 10:36 AM EDT Gender Identity Female 03/14/2022 10:36 AM EDT Sexual Orientation Straight 03/14/2022 10 :36 AM EDT documented as of this encounter Plan of Treatment Not on file documented as of this encounter Procedures Procedure Name Priority Date/Time Associated Diagnosis Comments HM COLONOSCOPY Routine 08/13/2013 10:20 AM EDT documented in this encounter Results * Hm Colonoscopy (08/13/2013 10:20 AM EDT) Historical Provider HEALTH MAINTENANCE Final Result documented in this encounter Visit Diagnoses Not on filedocumented in this encounter Additional Health Concerns Assessment Noted Time PHQ-9 Depression Total Score: 0 11/03/19 10:04 AM EDT documented as of this encounter Care Teams Casino Cage Manager Relationship Specialty Start Date End Date Fawn Whittington NP [address] [place] [address] PCP - General Family Medicine 02/21/23 Kobe Hope MD [address] [place] [address] Hematology and Oncology 08/02/23 Harris Ring MD [address] [place] [address] Otolaryngology 08/02/23 Tanmay Meza Educational Sign Language InterpreterSet Up Operator Tool 07/13/23 documented as of this encounter
--- OUTSIDE RECORDS SUMMARY | 2024-09-11 14:44 | XMS_ITS | Encounter Summary ---
Author Organization [employer] Address [address] [facility] 7t [place] [address] Care Team Providers Care Drafter Refrigeration Name Role Phone Fawn Whittington NP Primary Care Provider [phone] Kobe Hope MD Unavailable [phone] Harris Ring MD Unavailable [phone] Reason for Visit * Reason Comments Med Refill Encounter Details Date Type Department Care Team ([facility] st Contact Info) Description 09/05/2024 Refill [facility] MED & PEDS [address] [place] [address] Fawn Whittington NP [address] [place] [address] Pancytopenia (CMS/HCC) Social History Tobacco Use Types Packs/Day Years [...] on file documented as of this encounter Goals Goal Patient Goal Type Associated Problems Recent Progress Patient-Stated? Author Blood Pressure < 150/90 Blood Pressure 125/65( 025 1:36 PM EST) No Yung Isaacs documented as of this encounter Visit Diagnoses Diagnosis Pancytopenia (CMS/HCC) documented in this encounter Additional Health Concerns Assessment Noted Time PHQ-9 Depression Total Score: 3 02/12/20 24 9:13 AM EDT documented as of this encounter Care Teams Drafter Refrigeration Relationship Specialty Start Date End Date Fawn Whittington NP [address] [place] [address] PCP - General Family Medicine 02/21/23 Kobe Hope MD [address] [place] [address] Hematology and Oncology 08/02/23 Harris Ring MD [address] [place] [address] Otolaryngology 08/02/23 Tanmay Meza Marketing AnalystCoin Teller 07/13/23 documented as of this encounter
--- OUTSIDE RECORDS SUMMARY | 2024-09-11 14:44 | XMS_ITS | Encounter Summary ---
Author Organization [employer] Address [address] [facility] 7t [place] [address] Care Team Providers Care Trimmer Meat Name Role Phone Fawn Whittington NP Primary Care Provider [phone] Kobe Hope MD Unavailable [phone] Harris Ring MD Unavailable [phone] Encounter Details Date Type Department Care Team (Late st Contact Info) Description 07/10/2024 Orders Only [facility] MEDICINE [address] [place] [address] Fawn Whittington NP [address] [place] [address] Social History Tobacco Use Types Packs/Day Years [...] your housing situation today? I have julianne adela 02/12/[address] you li [...] documented as of this encounter Visit Diagnoses Not on filedocumented in this encounter Additional Health Concerns Assessment Noted Time PHQ-9 Depression Total Score: 3 02/12/20 24 9:13 AM EDT documented as of this encounter Care Teams Trimmer Meat Relationship Specialty Start Date End Date Fawn Whittington NP [address] [place] [address] PCP - General Family Medicine 02/21/23 Kobe Hope MD [address] [place] [address] Hematology and Oncology 08/02/23 Harris Ring MD [address] [place] [address] Otolaryngology 08/02/23 Tanmay Meza Shop DirectorShop Coordinator 07/13/23 documented as of this encounter
--- OUTSIDE RECORDS SUMMARY | 2024-09-11 14:44 | XMS_ITS | Encounter Summary ---
Author Organization [employer] Address [address] [facility] 7t [place] [address] Care Team Providers Care Personal Driver Name Role Phone Fawn Whittington NP Primary Care Provider [phone] Kobe Hope MD Unavailable [phone] Harris Ring MD Unavailable [phone] Reason for Visit * Reason Comments Med Refill Encounter Details Date Type Department Care Team ([facility] st Contact Info) Description 07/11/2024 Refill [facility] CHC MED & PEDS [address] [place] [address] Fawn Whittington NP [address] [place] [address] Pancytopenia (CMS/HCC) Social History Tobacco Use Types [...] documented as of this encounter Care Teams Personal Driver Relationship Specialty Start Date End Date Fawn Whittington NP [address] [place] [address] PCP - General Family Medicine 02/21/23 Kobe Hope MD [address] [place] [address] Hematology and Oncology 08/02/23 Harris Ring MD [address] [place] [address] Otolaryngology 08/02/23 Tanmay Meza Office DirectorPca 07/13/23 documented as of this encounter
--- OUTSIDE RECORDS SUMMARY | 2024-09-11 14:44 | XMS_ITS | Encounter Summary ---
Author Organization [employer] Address [address] [facility] 7t [place] [address] Care Team Providers Care Salvage Determiner Name Role Phone Fawn Whittington NP Primary Care Provider [phone] Kobe Hope MD Unavailable [phone] Harris Ring MD Unavailable [phone] Reason for Visit * Reason Comments Med Refill Encounter Details Date Type Department Care Team (Late st Contact Info) Description 04/23/2023 Refill [facility] [address] [place], [place] [phone] Christopher Gonzalez MD [address] [place] [address] Moderate persistent asthma with acute exacerbation Social History Tobacco Use Types Packs/Day Years [...] on file documented as of this encounter Visit Diagnoses Diagnosis Moderate persistent asthma with acute exacerbation documented in this encounter Additional Health Concerns Assessment Noted Time PHQ-9 Depression Total Score: 0 11/03/19 10:04 AM EDT documented as of this encounter Care Teams Salvage Determiner Relationship Specialty Start Date End Date Fawn Whittington NP [address] [place] [address] PCP - General Family Medicine 02/21/23 Kobe Hope MD [address] [place] [address] Hematology and Oncology 08/02/23 Harris Ring MD [address] [place] [address] Otolaryngology 08/02/23 Tanmay Meza Market Development DirectorHealth Services Information Specialist 07/13/23 documented as of this encounter
--- OUTSIDE RECORDS SUMMARY | 2024-09-11 14:44 | XMS_ITS | Encounter Summary ---
Author Organization [employer] Address [address] [facility] 7t [place] [address] Care Team Providers Care Maintenance Repairer Name Role Phone Fawn Whittington NP Primary Care Provider [phone] Kobe Hope MD Unavailable [phone] Harris Ring MD Unavailable [phone] Reason for Visit * Reason Comments Med Refill Encounter Details Date Type Department Care Team ([facility] st Contact Info) Description 04/21/2024 Refill [facility] CHC MED & PEDS [address] [place] [address] Fawn Whittington NP [address] [place] [address] Arthritis Social History Tobacco Use Types Packs/Day Years [...] as of this encounter Visit Diagnoses Diagnosis Arthritis Unspecified arthropathy, site unspecified documented in this encounter Additional Health Concerns Assessment Noted Time PHQ-9 Depression Total Score: 3 02/12/20 24 9:13 AM EDT documented as of this encounter Care Teams Maintenance Repairer Relationship Specialty Start Date End Date Fawn Whittington NP [address] [place] [address] PCP - General Family Medicine 02/21/23 Kobe Hope MD [address] [place] [address] Hematology and Oncology 08/02/23 Harris Ring MD [address] [place] [address] Otolaryngology 08/02/23 Tanmay Meza Research And Development ChemistSales Development Coordinator 07/13/23 documented as of this encounter
--- OUTSIDE RECORDS SUMMARY | 2024-09-11 14:44 | XMS_ITS | Encounter Summary ---
Author Organization [employer] Address [address] [facility] 7t [place] [address] Care Team Providers Care Test Boring Crew Chief Name Role Phone Fawn Whittington NP Primary Care Provider [phone] Kobe Hope MD Unavailable [phone] Harris Ring MD Unavailable [phone] Reason for Visit * Reason Onset Date Comments Change PCP 06/14/2024 Encounter Details Date Type Department Care Team (Late st Contact Info) Description 06/14/2024 Telephone [facility] MEDICINE [address] [place], [place] [phone] Fawn Whittington NP [address] [place] [address] Change PCP Social History Tobacco Use Types Packs/Day Years [...] got money to buy more: Sometimes True 09/30/ 2024 Within the past 12 months,th e food [...] AM EDT documented as of this encounter Miscellaneous Notes * Telephone Encounter - Braxton Enriquez - 06/14/2024 11:37 AM EST Tc from pt neonatal critical care nurse requesting to switch providers. Pt is requesting a macedonian speaking provider. Catering Chef advise of chef french services. Contact pt neonatal critical care nurse Tanmay at [phone]. documented in this encounter Plan of Treatment Not on [...] documented as of this encounter Care Teams Test Boring Crew Chief Relationship Specialty Start Date End Date Fawn Whittington NP [address] [place] [address] PCP - General Family Medicine 10/10/23 Kobe Hope MD [address] [place] [address] Hematology and Oncology 08/02/23 Harris Ring MD [address] [place] [address] Otolaryngology 08/02/23 Tanmay Meza Shaker RepairerTire Regrooving Machine Operator 07/13/23 documented as of this encounter
--- OUTSIDE RECORDS SUMMARY | 2024-09-11 14:44 | XMS_ITS | Encounter Summary ---
Author Organization [employer] Address [address] [facility] 7t [place] [address] Care Team Providers Care Assurance Assistant Name Role Phone Fawn Whittington NP Primary Care Provider [phone] Kobe Hope MD Unavailable [phone] Harris Ring MD Unavailable [phone] Reason for Visit * Reason Comments Med Refill Encounter Details Date Type Department Care Team ([facility] st Contact Info) Description 10/04/2023 Refill [facility] MEDICINE [address] [place], [place] [phone] Name, MD [place] [address] [place] [address] Arthritis Social History Tobacco Use Types Packs/Day Years Used Date Smoking Tobacco: Never Passive Smoke Exposure: Never Smokeless Tobacco: Never Alcohol Use Standard Drinks/Week Comments Never 0 (1 standard drink = 0.6 oz pur e alcohol) Depression Answer Date Recorded Patient Health Questionnaire-9 Score 0 11/02/2022 Housing Stability Answer Date Recorded What is your housing situation today? I have juliannedali chapman 03/02/[address] you [...] enough money to get more: Never True 10/ Transportation Answer Date Recorded In the past [...] documented as of this encounter Care Teams Assurance Assistant Relationship Specialty Start Date End Date Fawn Whittington NP [address] [place] [address] PCP - General Family Medicine 02/21/23 Kobe Hope MD [address] [place] [address] Hematology and Oncology 08/02/23 Harris Ring MD [address] [place] [address] Otolaryngology 08/02/23 Tanmay Meza Baker BreadStaff Forester 07/13/23 documented as of this encounter
--- OUTSIDE RECORDS SUMMARY | 2024-09-11 14:44 | XMS_ITS | Encounter Summary ---
Author Organization [employer] Address [address] [facility] 7t [place] [address] Care Team Providers Care Academic Specialist Name Role Phone Fawn Whittington NP Primary Care Provider [phone] Kobe Hope MD Unavailable [phone] Harris Ring MD Unavailable [phone] Encounter Details Date Type Department Care Team (Late st Contact Info) Description 05/10/2023 Abstract [facility] MEDICINE [address] [place] [address] [place], [place] Social History Tobacco Use Types Packs/Day Years [...] Procedure Name Priority Date/Time Associated Diagnosis Comments MAMMOGRAPHY Routine 04/19/2021 documented in this encounter Results * Mammography (04/19/2021) Mammogram Negative Comment:Bi-Rads 1 Negative Anatomical Region Laterality Modality Other Luis Carlos Hurd MD HEALTH MAINTENANCE Final Res ult documented in this encounter Visit Diagnoses Not on filedocumented in this encounter Additional Health Concerns Assessment Noted Time PHQ-9 Depression Total Score: 0 11/03/19 10:04 AM EDT documented as of this encounter Care Teams Academic Specialist Relationship Specialty Start Date End Date Fawn Whittington NP [address] [place] [address] PCP - General Family Medicine 02/21/23 Kobe Hope MD [address] [place] [address] Hematology and Oncology 08/02/23 Harris Ring MD [address] [place] [address] Otolaryngology 08/02/23 Tanmay Meza Mainstreaming FacilitatorLockstitch Waistband Setter 07/13/23 documented as of this encounter
== END 2024-09-11 13:58 | disposition home or self-care (01) ==
LOC: HO.HGI 13:23
PROVIDERS: Visit Provider Nurse Practitioner Family
DX: K21.9 Gastro-esophageal reflux disease without esophagitis (principal); K59.04 Chronic idiopathic constipation; R10.13 Epigastric pain
CPT/HCPCS: 99214

== ENCOUNTER → 2024-09-11 13:22 | Outpatient (BNVA) | payer MEDICAID, SELFPAY | PROVIDERS: Visit Provider Nurse Practitioner Family | DX: K21.9 Gastro-esophageal reflux disease without esophagitis (principal); K59.04 Chronic idiopathic constipation; R10.13 Epigastric pain | CPT/HCPCS: 99212 ==

== ENCOUNTER 2024-10-29 16:26 | Outpatient (REF) | payer MEDICAID, SELFPAY ==
--- OUTSIDE RECORDS SUMMARY | 2024-10-29 18:36 | XMS_ITS | Data Portability ---
Author Organization [place] - [facility], Allergy Address [address] [place] [id number] Assessment Encounter Date Assessment Date Assessment LastModified by Organization Details LastModified Time 05/23/2024 05/23/2024 63 year old female with persistent left side of the throat globus sensation. She had normal fiberoptic laryngosocopy one year ago and declines fiberoptic laryngoscopy today. She had CT soft tissue neck with contrast at [facility] 06/06/23 which was normal. I discussed with her that reflux can worsen globus sensation. Given her difficulty choking and coughing with eating and drinking I have ordered modified barium swallow. She will follow up after this test. Not available 05/23/2024 12:28:05 08/14/2024 08/14/2024 Modified barium swallow was normal. Given her persistent symptoms I offered repeat CT neck with contrast but she does not want to pursue this. I discussed that symptoms may be from GERD. I have issued her a prescription for Doxycycline given that her sinus symptoms have been present for one month despite use of Flonase and Claritin. Recommend follow up in 2 months. If her symptoms persist she would benefit from nasal endoscopy and/or CT sinus. Nasal examination today did not identify a prominent bleeding source to better explain their history of epistaxis. Recommend medical management with saline nasal spray 4-6 times daily, K-Y jelly at night, Afrin with episodes of bleeding and packing the nose with Bleed Cease (available OTC) if any additional bleeding. Not available 08/14/2024 15:13:57 Plan of Treatment Reminders Order Date Submit Date Provider Last Modified By Organization Details Last Modified Time Details Appointments Establish ed 15 2024 01:30P Kermit HINDS PA-C Not available Not available Not available Lab None recorded. Referral None recorded. Procedures None recorded. Surgeries None recorded. Imaging [place], modified barium swallow study 2024 025 [email or web address], [address] [place], [address], 07/12/2024 11:21:41 Medication Orders doxycycli ne hyclate 100 mg capsule 2024 025 [facility], [address], [place], [phone], 08/14/2024 11:21:41 Patient TargetsNo targets recorded. Patient InstructionsNo instructions recorded. Reason for Referral None Reported. Results Created Date Observation Date Name Description Value Unit Range Abnormal Flag Note LastModifiedBy Organization Detail LastModifiedTime 05/27/1906/06/2023 CT, neck, soft tissu e, w/ contr ast No observ ation record ed. [email or web address] Not Available 2024 08:52:21 Result Notes None recorded. 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 Active 2017 Polyp of nasal cavity; Note: Date Diagnosed: 08/20/2017 3:31 PM (J33.0) Not Available [facility] 4 03:17:28 Chronic sinusitis 42537300 Active 2017 Other chronic sinusitis; Note: Date Diagnosed: 08/20/2017 3:30 PM (J32.8) Not Available [facility] 4 03:17:28 Allergic rhinitis 19604068 Active 2017 Perennial allergic rhinitis; Note: Date Diagnosed: 08/14/2017 11:40 AM (J30.89) Not Available [facility] 4 03:17:29 Nasal congestio n 90824307 Active 2017 Nasal congestion ; Note: Date Diagnosed: 08/14/2017 11:40 AM (R09.81) Not Available [facility] 4 03:17:28 Uncomplic ated mild persisten t asthma 206847750 Active 2017 Mild persistent asthma, uncomplica reji; Note: Date Diagnosed: 08/14/2017 11:40 AM (J45.30) Not Available [facility] 4 03:17:29 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 - [facility] 5 11:21:11 Dysphagia 72508506 Active 2024 ESTHELA RODRIGUEZ PA-C [address], [place], [place], [phone] , [place] - [facility] 5 11:21:17 Acute sinusitis 47708822 Active 2024 ESTHELA RODRIGUEZ PA-C [address], [place], [address] , [facility] - [facility] 5 11:16:03 Problem Notes None recorded. Medical Equipment None Reported. Allergies Allergen ID Allergen Name Allergen Category Reaction Reaction Severity Criticality Documentation Date Start Date Code Code System Note Provider Name and Address Organization Details Recorded Time [id number] penicilli n V potassium medicatio n other Not available Not available 09/26/2023 5 RxNorm React ion: unkno wn, unspe cifie d;; Not Available [facility] 4 01:25:39 Medications Name Sig Start Date Stop Date Status Note LastModified by Organization Details LastModified Time medbox status USE DIRECTED 08/14 completed Not Available Not Available Not Available Nasal [place] (oxymetaz oline) 0.05 % GIVE 2 SPRAYS IN EACH NOSTRIL EVERY TWELVE HOURS NEEDED FOR UP TO 2 DAYS 08/14 completed Not Available Not Available Not Available atorvasta tin 80 mg tablet TAKE 1 TABLET BY MOUTH EVERY MORNING active Not Available Not Available No t Available doxycycli ne hyclate 100 mg capsule TAKE 1 CAPSULE BY MOUTH TWICE DAILY active Not Available Not Available No t Available meclizine 50 mg tablet TAKE 1 TABLET BY MOUTH TWICE DAILY NEEDED FOR DIZZINES S 08/14 completed Not Available Not Available Not Available nabumeton e 750 mg tablet TAKE 1 TABLET BY MOUTH TWICE DAILY IN THE MORNING AND IN THE EVENING active Not Available Not Available No t Available ammonium lactate 12 % lotion APPLY A THIN LAYER TOPICALL Y TO AFFECTED AREA(S) TWICE DAILY IN THE MORNING AND AT BEDTIME NEEDED FOR DRY SKIN 08/14 completed Not Available Not Available Not Available Vitamin C 500 mg tablet TAKE 1 TABLET BY MOUTH EVERY EVENING active Not Available Not Available No t Available Stool Softener 100 mg capsule TAKE 2 CAPSULES BY MOUTH EVERY DAY IN THE EVENING active Not Available Not Available No t Available azithromy joesph 250 mg tablet TAKE 2 TABLETS BY MOUTH ON DAY 1, THEN TAKE 1 TABLET DAILY ON DAYS 2-5 08/14 completed Not Available Not Available Not Available senna 8.6 mg tablet TAKE 2 TABLETS BY MOUTH EVERY DAY AT BEDTIME FOR CONSTIPA TION active Not Available Not Available No t Available sucralfat e 1 gram tablet TAKE 1 TABLET BY MOUTH EVERY DAY AT BEDTIME 08/14 completed Not Available Not Available Not Available sumatript an 25 mg tablet TAKE 1 TABLET BY MOUTH AT ONSET OF MIGRAINE . MAY REPEAT ONCE AFTER 2 HOURS IF NEEDED. DO NOT EXCEED 2 DOSES DAILY 08/14 completed Not Available Not Available Not Available polyvinyl alcohol 1.4 % eye drops INSTILL 1 DROP IN EACH EYE FOUR TIMES DAILY AND EVERY 2 HOURS NEEDED IRRITATI ON active Not Available Not Available No t Available cyanocoba danielle (vit B-12) 1,000 mcg tablet TAKE 1 TABLET BY MOUTH EVERY MORNING active Not Available Not Available No t Available acetamino phen ER 650 mg tablet,ex tended release TAKE 2 TABLETS BY MOUTH EVERY 8 HOURS NEEDED. SWALLOW WHOLE WITH WATER. DO NOT BREAK, CRUSH, DISSOLVE OR CHEW. 08/14 completed Not Available Not Available Not Available famotidin e 20 mg tablet TAKE 1 TABLET BY MOUTH EVERY MORNING active Not Available Not Available No t Available amitripty line 25 mg tablet TAKE 1 TABLET BY MOUTH AT BEDTIME active Not Available Not Available No t Available amitripty line 10 mg tablet 04/02 /2025 completed Medicati on ID: [id number] B rand Name: amitript yline Se nd Method: E-Prescr ibed Sub s Allowed: subs OK Speci al Instruct ion: TAKE 1 TABLET BY MOUTH AT BEDTIME Medicati onGeneri cName: amitript yline Not Available Not Available Not Available baclofen 10 mg tablet TAKE 1 TABLET BY MOUTH THREE TIMES DAILY NEEDED active Not Available Not Available No t Available benzonata te 100 mg capsule TAKE 1 CAPSULE BY MOUTH THREE TIMES DAILY IN THE MORNING, AT NOON, AND AT BEDTIME NEEDED FOR COUGH 08/14 completed Not Available Not Available Not Available oseltamiv ir 75 mg capsule TAKE 1 CAPSULE BY MOUTH TWICE DAILY FOR 5 DAYS 08/14 completed Not Available Not Available Not Available esomepraz ole magnesium 40 mg capsule,d elayed release TAKE 1 CAPSULE BY MOUTH EVERY EVENING 08/14 completed Not Available Not Available Not Available lidocaine 5 % topical patch APPLY 1 PATCH TOPICALL Y TO SKIN, LEAVE ON FOR 12 HOURS AND OFF FOR 12 HOURS DIRECTED 08/14 completed Not Available Not Available Not Available hydrochlo rothiazid e 25 mg tablet 05/16 completed Medicati on ID: [id number] D uration Value: 30 Brand Name: hydrochl orothiaz maribell Send Method: E-Prescr ibed Sub s Allowed: subs OK Coreyi al Instruct ion: TAKE 1 TABLET BY MOUTH EVERY DAY IN THE MORNING Medicati onGeneri cName: hydrochl orothiaz maribell Not Available Not Available Not Available ibuprofen 600 mg tablet Take 1 tablet by mouth three times a day as needed 05/16 completed Medicati on ID: [id number] D uration Value: 10 Brand Name: ibuprofe n Send Method: E-Prescr ibed Sub s Allowed: subs OK Medic ationGen ericName : ibuprofe n Not Available Not Available Not Available propranol ol 20 mg tablet TAKE 1 TABLET BY MOUTH EVERY DAY 08/14 completed Not Available Not Available Not Available fluticaso ne propionat e 50 mcg/actua tion nasal spray,maico pension INHALE 1 SPRAY IN EACH NOSTRIL TWICE DAILY DIRECTED active Not Available Not Available No t Available lisinopri l 2.5 mg tablet TAKE 1 TABLET BY MOUTH EVERY MORNING active Not Available Not Available No t Available doxycycli ne hyclate 100 mg tablet TAKE 1 TABLET BY MOUTH TWICE DAILY FPR 5 DAYS. Do not lie down for 30 minutes after taking. 08/14 completed Not Available Not Available Not Available loratadin e 10 mg tablet TAKE 1 TABLET BY MOUTH ONCE DAILY IN THE MORNING 08/14 completed Not Available Not Available Not Available Ventolin HFA 90 mcg/actua tion aerosol inhaler INHALE 2 PUFFS BY MOUTH EVERY 4 HOURS NEEDED FOR WHEEZING OR SHORTNES S OF BREATH active Not Available Not Available No t Available Vitamin D3 25 mcg (1,000 unit) capsule 05/16 completed Medicati on ID: [id number] B rand Name: Vitamin D3 Send Method: E-Prescr ibed Sub s Allowed: subs OK Medic ationGen ericName : Vitamin D3 Not Available Not Available Not Available cyclobenz aprine 5 mg tablet 05/16 completed Medicati on ID: [id number] B rand Name: cycloben zaprine Send Method: E-Prescr ibed Sub s Allowed: subs OK Medic ationGen ericName : cycloben zaprine Not Available Not Available Not Available ciproflox acin 0.3 %-dexamet hasone 0.1 % ear drops,maico penon PLACE 4 DROPS IN EACH EAR TWICE DAILY FOR 7 DAYS 08/14 completed Not Available Not Available Not Available DOK 05/16 completed Medicati on ID: [id number] D uration Value: 30 Brand Name: DOK Send Method: E-Prescr ibed Sub s Allowed: subs OK Speci al Instruct ion: TAKE 1 CAPSULE AT BEDTIME NEEDED M pat[place]io [place] Name: DOK Not Available Not Available Not Available Advair HFA 115 mcg-21 mcg/actua tion aerosol inhaler 08/14 completed Medicati on ID: [id number] B rand Name: Advair HFA Send Method: E-Prescr ibed Sub s Allowed: subs OK Speci al Instruct ion: INHALE 2 PUFFS BY MOUTH IN THE MORNING RINSE MOUTH AFTER USING. M allano Esthereneric Name: Advair HFA Not Available Not Available Not Available ferrous gluconate 324 mg (38 mg iron) tablet TAKE 1 TABLET BY MOUTH EVERY EVENING active Not Available Not Available No t Available Lubricant Eye Drops 0.5 % drops in a dropperet te APPLY 1 DROP IN EACH EYE THREE OR FOUR TIMES DAILY NEEDED 08/14 completed Not Available Not Available Not Available cholecalc iferol (vitamin D3) 50 mcg (2,000 unit) tablet TAKE 1 TABLET BY MOUTH EVERY MORNING active Not Available Not Available No t Available blood pressure test kit-large cuff USE TO CHECK BLOOD PRESSURE TWICE DAILY 08/14 completed Not Available Not Available Not Available Dexilant 60 mg capsule, delayed release TAKE 1 CAPSULE BY MOUTH EVERY EVENING active Not Available Not Available No t Available Debra-Tuss in 100 mg/5 mL oral liquid GIVE 10 ML BY MOUTH THREE TIMES DAILY IN THE MORNING, AT NOON, AND AT BEDTIME NEEDED FOR COUGH FOR UP TO 10 DAYS 08/14 completed Not Available Not Available Not Available Linzess 145 mcg capsule TAKE 1 CAPSULE BY MOUTH EVERY DAY 08/14 completed Not Available Not Available Not Available guaifenes in ER 600 mg tablet, extended release 12 hr TAKE 1 TABLET BY MOUTH TWICE DAILY FOR 7 DAYS. DO NOT BREAK, CRUSH, DISSOLVE OR CHEW 08/14 completed Not Available Not Available Not Available albuterol sulfate 90 mcg/actua tion breath activated powder inhaler 05/16 completed Medicati on ID: [id number] B rand Name: ProAir HFA Send Method: E-Prescr ibed Sub s Allowed: subs OK Medic ationGen ericName : ProAir HFA Medi cation ID: [id number] B rand Name: ProAir HFA Send Method: E-Prescr ibed Sub s Allowed: subs OK Medic ationGen ericName : ProAir HFA Not Available Not Available Not Available albuterol sulf 90 mcg/actua tion breath activated powder inhaler,s ensor 05/16 completed Medicati on ID: [id number] B rand Name: ProAir HFA Send Method: E-Prescr ibed Sub s Allowed: subs OK Medic ationGen ericName : ProAir HFA Not Available Not Available Not Available Paxlovid 300 mg (150 mg x 2)-100 mg tablets in a dose pack TAKE 2 TABLETS (300 MG) OF NIRMATRE LVIR & 1 TABLET (100 MG) OF RITONAVI R BY MOUTH TWICE DAILY FOR 5 DAYS 08/14 completed Not Available Not Available Not Available Vitals Date Recorded Body height Body mass index (BMI) Body weight Provider Name and Address Organization Details Last Updated DateTime 05/23/2024 170.18 cm 24.7 kg/m2 35835.59 g Arianna Fieldsos [place] [facility] 05/23/2024 11:02:14 Date Recorded Body height Body mass index (BMI) Body weight Provider Name and Address Organization Details Last Updated DateTime 08/14/2024 170.18 cm 25.1 kg/m2 72043.78 g Roxie Colon [facility] 08/14/2024 10:59:35 Social History None recorded. Functional Status None recorded. Mental Status None recorded. Family History Nothing Reported. Medical History No medical history recorded. Gynecological HistoryNo gynecological history recorded. Obstetrics History GPAL:G 0 P 0 0 0 0 Past Encounters Encounter ID Performer Location Encounter Start Date Encounter Closed Date Diagnosis/Indication Diagnosis SNOMED-CT Code Diagnosis ICD10 Code Diagnosis Note [id number] ESTHELA RODRIGUEZ PA-C [facility] [address] [place] [address] 05/23/2024 10:48:53 05/23/2024 11:25:53 Feeling of lump in throat 442671943 R09.89 Dysphagia 69416055 R13.1 0 [id number] ESTHELA RODRIGUEZ PA-C [facility] [address] [place] [address] 08/14/2024 10:48:10 08/14/2024 11:17:34 Acute sinusitis 21630149 J01.90 Dysphagia 07642842 R13.1 0 Feeling of lump in throat 320566803 R09.89 Health Concerns Section Related Observation LastModified by Organization Detai ls LastModified Time None Recorded Concern Status LastModified by Organization Details LastModified Time None Recorded Advance Directives Directive None Recorded Payers Insurance Date Sequence Insurance Name Policy Number Policy Torres Covered Member ID Torres Member ID Guarantor Name 10/16/2024 1 [place] Crystal Ferrer [id number] Crystal Ferrer Notes Date Note Type Note Provider Name and Address Organization Details Recorded Time 05/23/2024 text/html 63 year old fema le seen [address] Ring for sore throat and a sensation that something is in the left side of the throat. Fiberoptic laryngoscopy at that visit was normal. She had a CT soft tissue neck with contrast 06/06/23 at [facility] which was normal. Her symptoms have been stable for the past year. She is a nonsmoker. She does report some difficulty with swallowing both food and liquids. She does cough when she eats and drinks and feels like she is going to choke. She does have a history of GERD and is on Esomeprazole. Her son helps to translate for her. EMI RING MD [address] [facility] [address], [place], [address], [place] - [facility] 05/23/2024 16:44:58 08/14/2024 text/html 63 year old kendall victoria presents with son who translates for her. She is here to review modified barium swallow. She additionally reports 1 month of sinus pressure and congestion. She has been using Flonase and Claritin. She has had a few episodes of epistaxis. She is not using nasal saline. PV: 63 year old female seen [address] Ring for sore throat and a sensation that something is in the left side of the throat. Fiberoptic laryngoscopy at that visit was normal. She had a CT soft tissue neck with contrast 06/06/23 at [facility] which was normal. Her symptoms have been stable for the past year. She is a nonsmoker. She does report some difficulty with swallowing both food and liquids. She does cough when she eats and drinks and feels like she is going to choke. She does have a history of GERD and is on Esomeprazole. ROSY WHITNEY MD [address] [facility], [place], [address], [facility] - [facility] 08/14/2024 17:19:27 OBGyn Episode No OBEpisode recorded.
== END 2024-10-29 16:27 | disposition home or self-care (01) ==
LOC: HO.HHCLNP 16:26
PROVIDERS: Visit Provider Internal Medicine
DX: R39.9 Unspecified symptoms and signs involving the genitourinary system (principal)
CPT/HCPCS: 87086

== ENCOUNTER 2024-11-18 18:12 | Outpatient (REF) | payer MEDICAID, SELFPAY ==
--- OUTSIDE RECORDS SUMMARY | 2024-11-18 18:14 | XMS_ITS | Data Portability ---
Author Organization [place] [facility], Allergy Address [address] [address] Assessment Encounter Date Assessment Date Assessment LastModified by Organization Details LastModified Time 05/23/2024 05/23/2024 63 year old female with persistent left side of the throat globus sensation. She had normal fiberoptic laryngosocopy one year ago and declines fiberoptic laryngoscopy today. She had CT soft tissue neck with contrast at [facility] 06/06/23 which was normal. I discussed with [...] Details Appointments Establish ed 15 2024 01:30P M SIOBHAN HINDS PA-C Not available Not available Not available Lab None recorded. Referral None recorded. Procedures None recorded. Surgeries None recorded. Imaging [place], modified barium swallow study 2024 025 [email or web address] [facility], [address], [place], [address], 07/12/2024 11:21:41 Medication Orders doxycycli ne hyclate 100 mg capsule 2024 025 [facility], [address] [place], [place], [id number], 08/14/2024 11:21:41 Patient TargetsNo targets recorded. Patient InstructionsNo instructions recorded. Reason for Referral None Reported. Results Created Date Observation Date Name Description Value Unit Range Abnormal Flag Note LastModifiedBy Organization Detail LastModifiedTime 05/27/19 25 06/06/2023 CT, neck, soft tissu e, w/ contr ast No observ ation record ed. [email or web address] Not Available 2024 08:52:21 Result Notes None recorded. Problems Name Problem SNOMED Code Status Onset Date Resolution Date Notes Provider Name and Address Organization Details Recorded Time Polyp of nasal cavity 930983027 Active 2017 Polyp of nasal cavity; Note: Date Diagnosed: 08/20/2017 3:31 PM (J33.0) Not Available [facility] 4 03:17:28 Chronic sinusitis 17103986 Active 2017 Other chronic sinusitis; Note: Date Diagnosed: 08/20/2017 3:30 PM (J32.8) Not Available [facility] 4 03:17:28 Allergic rhinitis 34249355 Active 2017 Perennial allergic rhinitis; Note: Date Diagnosed: 08/14/2017 11:40 AM (J30.89) Not Available [facility] 4 03:17:29 Nasal congestio n 53662068 Active 2017 Nasal congestion ; Note: Date Diagnosed: 08/14/2017 11:40 AM (R09.81) Not Available [facility] 4 03:17:28 Uncomplic ated mild persisten t asthma 509775219 Active 2017 Mild persistent asthma, uncomplica reji; Note: Date Diagnosed: 08/14/2017 11:40 AM (J45.30) Not Available [facility] 4 03:17:29 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 - [facility] 5 11:21:11 Dysphagia 18687823 Active 2024 ESTHELA RODRIGUEZ PA-C [address], [place], [place], [address] , [facility] - [facility] 5 11:21:17 Acute sinusitis 38403123 Active 2024 ESTHELA RODRIGUEZ PA-C [address], [place], [place], [address] , [facility] - [facility] 5 11:16:03 Problem Notes None recorded. Medical Equipment None Reported. Allergies Allergen ID Allergen Name Allergen Category Reaction Reaction Severity Criticality Documentation Date Start Date Code Code System Note Provider Name and Address Organization Details Recorded Time 345333 penicilli n V potassium medicatio n other Not available Not available 09/26/2023 5 RxNorm React ion: unkno wn, unspe cifie d;; Not Available [facility] 4 01:25:39 Medications Name Sig Start Date Stop Date Status Note LastModified by Organization Details LastModified Time medbox status USE DIRECTED 08/14 completed Not Available Not Available Not Available Nasal [place] (oxymetaz oline) 0.05 % GIVE 2 SPRAYS [...] t Available amitripty line 10 mg tablet 08/14 completed Medicati on ID: [id number] B rand Name: amitript yline Se nd [...] mg tablet 05/16 completed Medicati on ID: [id number] D uration Value: 30 Brand Name: hydrochl orothiaz maribell Send Method: E-Prescr ibed Sub s Allowed: subs OK Conner al Instruct ion: TAKE 1 TABLET BY MOUTH EVERY DAY IN THE MORNING Medicati onGeneri cName: hydrochl orothiaz maribell Not Available Not Available Not Available ibuprofen 600 mg tablet Take 1 tablet by mouth three times a day as needed 05/16 completed Medicati on ID: [id number] D uration Value: 10 Brand Name: ibuprofe [...] unit) capsule 05/16 completed Medicati on ID: [id number] B rand Name: Vitamin D3 Send Method: E-Prescr ibed Sub s Allowed: subs OK Medic ationGen ericName : Vitamin D3 Not Available Not Available Not Available cyclobenz aprine 5 mg tablet 05/16 completed Medicati on ID: [id number] B rand Name: cycloben zaprine Send Method: E-Prescr ibed Sub s Allowed: subs OK Medic ationGen ericName : cycloben zaprine Not Available Not Available Not Available ciproflox acin 0.3 %-dexamet hasone 0.1 % ear drops,maico pension PLACE 4 DROPS IN EACH EAR TWICE DAILY FOR 7 DAYS 08/14 completed Not Available Not Available Not Available DOK 05/16 completed Medicati on ID: [id number] D uration Value: 30 Brand Name: DOK Send Method: E-Prescr ibed Sub s Allowed: subs OK Speci al Instruct ion: TAKE 1 CAPSULE AT BEDTIME NEEDED [place] Name: DOK Not Available Not Available Not Available Advair HFA 115 mcg-21 mcg/actua tion aerosol inhaler 08/14 completed Medicati on ID: [id number] B rand Name: Advair HFA Send Method: E-Prescr ibed Sub s Allowed: subs OK Speci al Instruct ion: INHALE 2 PUFFS BY MOUTH IN THE MORNING RINSE MOUTH AFTER USING. M patricio Dempseyic Name: Advair HFA Not Available Not Available [...] powder inhaler 05/16 completed Medicati on ID: [id number] B rand Name: ProAir HFA Send Method: E-Prescr ibed Sub s Allowed: subs OK Medic ationGen ericName : ProAir HFA Medi cation ID: [id number] B rand Name: ProAir HFA Send Method: E-Prescr ibed Sub s Allowed: subs OK Medic ationGen ericName : ProAir HFA Not Available Not Available Not Available albuterol sulf 90 mcg/actua tion breath activated powder inhaler,s ensor 05/16 completed Medicati on ID: [id number] B rand Name: ProAir HFA Send Method: [...] Updated DateTime 05/23/2024 170.18 cm 24.7 kg/m2 43207.59 g Arianna Fieldsos [place] [facility] 05/23/2024 11:02:14 Date Recorded Body height Body mass index (BMI) Body weight Provider Name and Address Organization Details Last Updated DateTime 08/14/2024 170.18 cm 25.1 kg/m2 35063.78 g Roxie Petersonnati [facility] 08/14/2024 10:59:35 Social History None recorded. Functional Status None recorded. Mental Status None recorded. Family History Nothing Reported. Medical History No medical history recorded. Gynecological HistoryNo gynecological history recorded. Obstetrics History GPAL:G 0 P 0 0 0 0 Past Encounters Encounter ID Performer Location Encounter Start Date Encounter Closed Date Diagnosis/Indication Diagnosis SNOMED-CT Code Diagnosis ICD10 Code Diagnosis Note [id number] ESTHELA RODRIGUEZ PA-C [facility] [address] [place] [address] 05/23/2024 10:48:53 05/23/2024 11:25:53 Feeling of lump in throat 226626573 R09.89 Dysphagia 11285078 R13.1 0 [id number] ESTHELA RODRIGUEZ PA-C [facility] [address] [place] [address] 08/14/2024 10:48:10 08/14/2024 11:17:34 Acute sinusitis 79527269 J01.90 Dysphagia 55177659 R13.1 0 Feeling of lump in throat 527601496 R09.89 Health Concerns Section Related Observation LastModified by Organization Detai ls LastModified Time None Recorded Concern Status LastModified by Organization Details LastModified Time None Recorded Advance Directives Directive None Recorded Payers Insurance Date Sequence Insurance Name Policy Number Policy Torres Covered Member ID Torres Member ID Guarantor Name 10/16/2024 1 [place] [facility] Crystal Ferrer [id number] Crystal Ferrer Notes Date Note Type Note Provider Name and Address Organization Details Recorded Time 05/23/2024 text/html 63 year old kendall victoria seen [address] Ring [...] translate for her. EMI RING MD 100 [facility],[address], [address], [facility] - [facility] 05/23/2024 16:44:58 08/14/2024 text/html 63 year [...] is on Esomeprazole. ROSY WHITNEY MD 100 [facility] [address], [place], [address], [facility] - [facility] 08/14/2024 17:19:27 OBGyn Episode No OBEpisode recorded.
--- OUTSIDE RECORDS SUMMARY | 2024-11-18 18:14 | XMS_ITS | Encounter Summary ---
Author Organization [employer] Address [address] [facility] [address]t [place] [address] Care Team Providers Care Pick Up And Delivery Driver Name Role Phone Fawn Whittington NP Primary Care Provider [phone] Kobe Hope MD Unavailable [phone] Harris Ring MD Unavailable [phone] Encounter Details Date Type Department Care Team (Late st Contact Info) Description 07/10/2024 Orders Only [facility] [address] [place] [address] Fawn Whittington NP [address] [place] [address] Social History Tobacco Use Types Packs/Day Years [...] Author Blood Pressure < 150/90 Blood Pressure 134/67( 025 9:07 AM EDT) No Yung Isaacs documented as of this encounter Visit Diagnoses Not on filedocumented in this encounter Additional Health Concerns Assessment Noted Time PHQ-9 Depression Total Score: 3 02/12/20 24 9:13 AM EDT documented as of this encounter Care Teams Pick Up And Delivery Driver Relationship Specialty Start Date End Date Fawn Whittington NP [address] [place] [address] PCP - General Family Medicine 02/21/23 Kobe Hope MD [address] [place] [address] Hematology and Oncology 08/02/23 Harris Ring MD [address] [place] [address] Otolaryngology 08/02/23 Tanmay Meza Integration ArchitectDress Cap Maker 07/13/23 documented as of this encounter
== END 2024-11-18 18:13 | disposition home or self-care (01) ==
LOC: HO.HHCLNP 18:12
PROVIDERS: Visit Provider Nurse Practitioner Family
DX: R30.0 Dysuria (principal)
CPT/HCPCS: 87086

== ENCOUNTER 2025-01-10 12:33 | Outpatient (AMB) | payer MEDICARE, MEDICAID, SELFPAY ==
--- NOTE | 2025-01-10 12:59 | MHC.OFFVIS ---
Vital Signs 01/10/25 13:05 Height 5 ft 7 in Weight 160 lb BMI 25.1 BP 134/56 L Blood Pressure Location Rt brachial Position Sitting Pulse 66 Pulse Source Pulse Oximeter Pulse Oximetry (%) 98 Oxygen Delivery Method Room Air Intake Visit Reasons: 3m GERD Intake Note: ESTABLISHED PATIENT for mgmt of GERD + CIC. CC: C.O. epigastric pain post prandial. Pt denies any additional changes or concerns. Wirer Passenger Car Required: Yes Wirer Passenger Car Services: Wirer Passenger Car Present Wirer Passenger Car Name: AUREA Limon [id number] Information Interpreted: clinical only Accompanied by: Self / Same As Patient Allergies Penicillins (PENICILLINS) Allergy (Intermediate, Verified 01/21/25 13:22) RASH hydrocodone Adverse Reaction (Unknown, Verified 01/21/25 13:22) Palpitations narcotics Adverse Reaction (Mild, Uncoded 01/10/25 12:59) heart palpitations HPI HPI 3m GERD: Details: LAST VISIT GERD (gastroesophageal reflux disease) Chronic idiopathic constipation Postprandial epigastric pain Dyspepsia Plan Patient is here today for follow-up. Recent modified barium swallow that was done at [facility] on August 01 did not show any oral or pharyngeal penetration. However patient did cough couple times during the study. Her symptoms of dysphagia most likely related to uncontrolled reflux. Patient does admit that she still feels like her reflux is not well controlled. We will add famotidine in the morning to take it half an hour before breakfast. Patient can continue Dexilant. Patient will be sent for upper GI study with barium swallow to evaluate reflux. Patient was encouraged to take Senokot daily to make sure that she empties her bowels completely. This might also help with improvement in her symptoms. Patient was encouraged to drink more water. Patient drinks a glass of water a day. She was instructed to drink for 8 oz bottles of water daily. Both patient and son are agreeable to plan of care verbalize understanding of instructions. They were given the opportunity to ask questions and all questions answered. ? Thank you for allowing me to participate in her care Orders [place] upper GI w Ba Swallow Today K21.9 New famotidine (Pepcid) 20 mg PO DAILY 30 tabs 3RF K21.9 Refilled sennosides (Natural Senna Laxative) 17.2 mg (2 x 8.6 mg) PO BEDTIME 180 tabs 2RF constipation K59.00 TODAY'S VISIT Patient is here today for follow-up and to discuss going for colonoscopy. Patient reports epigastric pain postprandially. Patient does report that it is getting worse. However patient reports that pharmacy did not fill her Dexilant. Patient reports that constipation is managed with Senokot. Patient is using as needed. Patient denies melena, hematochezia, unintentional weight loss or ribbon like stools. Patient will be sent for colonoscopy and upper endoscopy. Denies any melena, hematochezia, unintentional weight loss or ribbon like stools. Patient denies any dyspepsia, dysphagia or odynophagia. Patient is not on any anticoagulation medication [facility] Medical History (Updated 01/21/25 @ 14:21 by Tiny Valencia RN) Sinusitis Chronic asthma HTN (hypertension) Arthritis High cholesterol Surgical History (Updated 01/21/25 @ 13:21 by Tiny Valencia, BATSHEVA) History of partial hysterectomy History of cholecystectomy History of esophagogastroduodenoscopy (EGD) Hx of colonoscopy (~2018) Family History Mother Diabetes HTN (hypertension) Paternal Aunt Cancer of neck Paternal Uncle Cancer of neck Social History Household Members: Children Housing: Apartment Are you a primary career and guidance counselor to a significant other at home: No Do you presently have visiting nurse or other home services: No Alcohol intake: never Patient Tobacco Use Status: Never used Tobacco service: No Current occupational status: disabled Review of Systems Const Denies weight gain and Denies weight loss ENT Reports no additional complaints, Reports dysphagia and Denies odynophagia Card Reports no additional complaints Resp Reports no additional complaints GI Reports abdominal pain (Epigastric), Denies belching, Denies melena, Denies bloating, Reports constipation, Reports dysphagia, Denies excessive flatus, Denies dyspepsia, Reports heartburn, Denies diarrhea, Denies loose stools, Denies nausea, Denies odynophagia and Denies vomiting Reports no additional complaints Musc Reports no additional complaints Neuro Reports no additional complaints Psych Reports no additional complaints Endo Reports no additional complaints Physical Exam Vital Signs: Last Vital Signs Pulse 66 01/10/25 13:05 BP 134/56 L 01/10/25 13:05 Pulse Ox 98 01/10/25 13:05 Oxygen Delivery Method Room Air 01/10/25 13:05 BMI result Body Mass Index 25.1 Const General: healthy appearing, no acute distress and well developed Nutritional Appearance: well nourished Orientation/consciousness: patient oriented x3 Resp Effort & Inspection: normal respiratory effort, able to speak in complete sentences, no tracheal deviation and symmetric chest movement Auscultation: clear to auscultation bilaterally Cardio Rate: regular rate GI Inspection: Yes normal to inspection and No distended Palpation (GI): Soft to palpation, not firm, nontender and No hepatosplenomegaly present Auscultation: normal bowel sounds General: Yes no CVA tenderness Back/Spine/Pelvis Back: no CVA tenderness Skin General skin exam: elasticity normal, turgor normal and dry skin Neuro General: patient oriented x3 Psych Appearance: grossly normal Mental Status: mental status grossly normal Assessment & Plan Assessment & Plan (1) GERD (gastroesophageal reflux disease): Code(s): K21.9 - Gastro-esophageal reflux disease without esophagitis Category: Medical Qualifiers: Esophagitis presence: esophagitis presence not specified Qualified Code(s): K21.9 - Gastro-esophageal reflux disease without esophagitis (2) Chronic idiopathic constipation: Code(s): K59.04 - Chronic idiopathic constipation Category: Medical (3) Epigastric pain: Code(s): R10.13 - Epigastric pain Category: Medical (4) Screen for colon cancer: Code(s): Z12.11 - Encounter for screening for malignant neoplasm of colon Plan Change PPI to Nexium. Patient will take famotidine at bedtime. Avoid dietary triggers and late night snacking. Staying upright for minimum 3 hours after meals discussed with patient. Patient will be sent for upper endoscopy. She is due to go for colonoscopy as well. What to expect before during and after procedure discussed with patient. Stressed the importance of good bowel prep and clear liquid diet day before procedure. Patient denies any cardiac or respiratory symptoms. No history of sleep apnea. Not on any anticoagulation medication. Patient will follow-up after upper endoscopy and colonoscopy. She will call our office if she will have any GI concerning symptoms. Patient is agreeable to current plan of care and verbalizes understanding of instructions. She was given the opportunity to ask questions and all questions answered. Thank you for allowing me to participate in her care Medications: New esomeprazole magnesium (Nexium) 40 mg PO DAILY 30 caps 3RF K21.9 - Gastro-esophageal reflux disease without esophagitis bisacodyl (Dulcolax (bisacodyl)) take 4 tabs at noon the day before your colonoscopy 20 mg (4 x 5 mg) PO ONCE 4 tabs 0RF constipation 1 day Z12.11 - Encounter for screening for malignant neoplasm of colon polyethylene glycol 3350 (Miralax) As directed by gastroenterology department at [facility] 238 grams PO ONCE 238 grams 0RF Z12.11 - Encounter for screening for malignant neoplasm of colon Changed From famotidine 20 mg PO DAILY 30 tabs 3RF K21.9 - Gastro-esophageal reflux disease without esophagitis To famotidine (Pepcid) 20 mg PO BEDTIME 30 tabs 3RF K21.9 - Gastro-esophageal reflux disease without esophagitis Discontinued dexlansoprazole Discontinued Reason: Doctor's Order 60 mg PO QPM 30 caps 3RF Coding Level of Care Code Est Pt Level 4 (41239) Complex EM visit Add On G2211 Diagnoses Gastroesophageal reflux disease, unspecified whether esophagitis present K21.9 Esophagitis presence: esophagitis presence not specified Chronic idiopathic constipation K59.04 Epigastric pain R10.13 Screen for colon cancer Z12.11 Time Spent (min) 40 Comment 25 minutes spent with patient and additional 15 minutes spent reviewing her records
--- OUTSIDE RECORDS SUMMARY | 2025-01-10 13:00 | XMS_ITS | Encounter Summary ---
Author Organization [employer] Address 75 [facility] 7t [place] [address] Care Team Providers Care Chisel Worker Name Role Phone Fawn Whittington NP Primary Care Provider [phone] Kobe Hope MD Unavailable [phone] Harris Ring MD Unavailable Reason for Visit * Reason Comments Med Refill Encounter Details Date Type Department Care Team ([facility] st Contact Info) Description 04/23/2023 Refill [facility] [address] [place], [place] [phone] Christopher Gonzalez MD [address] [place] [address] Moderate persistent asthma with acute exacerbation Social [...] as of this encounter Plan of Treatment Upcoming Encounters Date Type Department Care Team (Late st Contact Info) Description 02/26/2025 9:30 AM EDT Office Visit [facility] [address] [place] [address] Nannette Batres MD [address] [place] [address] documented as of this encounter Visit Diagnoses Diagnosis Moderate persistent asthma with acute exacerbation documented in this encounter Additional Health Concerns Assessment Noted Time PHQ-9 Depression Total Score: 0 11/03/19 10:04 AM EDT documented as of this encounter Care Teams Chisel Worker Relationship Specialty Start Date End Date Fawn Whittington NP [address] [place] [address] PCP - General Family Medicine 02/21/23 Kobe Hope MD [address] [place] [address] Hematology and Oncology 08/02/23 Harris Ring MD [address] [place] [address] Otolaryngology 08/02/23 Tanmay Meza Egg PasteurizerOcean Forwarder 07/13/23 documented as of this encounter
--- OUTSIDE RECORDS SUMMARY | 2025-01-10 13:00 | XMS_ITS | Encounter Summary ---
Author Organization [employer] Address [address] [facility] 7t [place] [address] Care Team Providers Care Home Health Outreach Coordinator Name Role Phone Fawn Whittington NP Primary Care Provider [phone] Kobe Hope MD Unavailable [phone] Harris Ring MD Unavailable [phone] Encounter Details Date Type Department Care Team (Late st Contact Info) Description 10/16/2023 Orders Only [facility] [address] [place] [address] Provider, MD April Social History Tobacco Use [...] Description 02/26/2025 9:30 AM EDT Office Visit [facility] [address] [place] [address] Nannette Batres MD [address] [place] [address] documented as of this encounter Procedures Procedure Name Priority Date/Time Associated Diagnosis Comments HM COLONOSCOPY Routine 08/13/2013 10:20 AM EDT documented in this encounter Results * Hm Colonoscopy (08/13/2013 10:20 AM EDT) Historical Provider HEALTH MAINTENANCE Final Result documented in this encounter Visit Diagnoses Not on filedocumented in this encounter Additional Health Concerns Assessment Noted Time PHQ-9 Depression Total Score: 0 11/03/19 23 10:04 AM EDT documented as of this encounter Care Teams Home Health Outreach Coordinator Relationship Specialty Start Date End Date Fawn Whittington NP [address] [place] [address] PCP - General Family Medicine 02/21/23 Kobe Hope MD [address] [place] [address] Hematology and Oncology 08/02/23 Harris Ring MD [address] [place] [address] Otolaryngology 08/02/23 Tanmay Meza Labor SupervisorIt Support Engineer 07/13/23 documented as of this encounter
--- OUTSIDE RECORDS SUMMARY | 2025-01-10 13:00 | XMS_ITS | Clinical Summary ---
Author Organization [employer] Address [address] [place] [address] 7[address] [place] [address] Care Team Providers Care Equal Opportunity Representative Name Role Phone Fawn Whittington NP Primary Care Provider [phone] Kobe Hope MD Unavailable [phone] Harris Ring MD Unavailable [phone] Allergies Active Allergy Reactions Criticality Noted Date Comments Codeine 09/05/2022 Penicillin G 03/19/2019 Other reaction(s): Hives / Skin Rash Medications Diclofenac Sodium (Voltaren) 1 % gelIndications:Art hritis Apply 2 g topically if needed in the morning and at bedtime (muscle pain). 100 g 3 3 Active ferrous gluconate (Fergon) 324 (38 Fe) MG tabletIndications: Pancytopenia (CMS/HCC) Take 1 tablet (324 mg) by mouth every other day. 45 tablet 1 3 Active loratadine (Claritin) 10 MG tabletIndications: Chronic sinusitis, unspecified location Take 1 tablet (10 mg) by mouth in the morning. 90 tablet 3 3 Active acetaminophen (Tylenol 8 Hour) 650 MG ER tablet TAKE 2 TABLETS BY MOUTH EVERY 8 HOURS NEEDED. SWALLOW WHOLE WITH WATER. DO NOT BREAK, CRUSH, DISSOLVE OR CHEW. 30 tablet 4 Active docusate sodium (Colace) 100 MG capsule Take 200 mg by mouth Once per day. 4 Active esomeprazole (NexIUM) [address] capsule Take 40 mg by mouth Once per day. 4 Active SUMAtriptan (Imitrex) 25 MG tabletIndications: Chronic migraine without aura without status migrainosus, not intractable TAKE 1 TABLET BY MOUTH AT ONSET OF MIGRAINE. MAY REPEAT ONCE AFTER 2 HOURS IF NEEDED. DO NOT EXCEED 2 DOSES/24 HOURS 9 tablet 4 Active ammonium lactate (Lac-Hydrin) 12 % lotion Apply topically if needed in the morning and at bedtime for dry skin. APPLY A THIN LAYER TOPICALLY TO AFFECTED AREA(S) TWICE DAILY NEEDED FOR ITCHING 400 mL 2 4 Active Multiple Vitamin (multivitamin) capsule Take as directed: Patient purchasing OTC Active aspirin-acetaminop hen-caffeine (Excedrin Migraine) 250-250-65 MG tablet Take as directed: Patient purchasing OTC Active Lubricating Plus Eye Drops 0.5 % ophthalmic solution INSTILL 1 DROP IN EACH EYE THREE OR FOUR TIMES DAILY NEEDED 30 mL 5 4 Active Blood Pressure kitIndications:Stephen ign essential hypertension 1 each 2 times daily. 1 kit 4 025 Active lidocaine (Lidoderm) 5 % patchIndications:A rthritis APPLY 1 PATCH TOPICALLY TO SKIN, LEAVE ON FOR 12 HOURS AND OFF FOR 12 HOURS DIRECTED 30 patch 1 4 Active cyanocobalamin (Vitamin B-12) 1000 MCG tabletIndications: Pancytopenia (CMS/HCC) TAKE 1 TABLET BY MOUTH EVERY MORNING 90 tablet 3 5 Active Ascorbic Acid (vitamin C) 500 MG tabletIndications: Pancytopenia (CMS/HCC) TAKE 1 TABLET BY MOUTH EVERY EVENING 90 tablet 1 5 Active Ventolin HFA 108 (90 Base) MCG/ACT inhalerIndications :Moderate persistent asthma with acute exacerbation INHALE 2 PUFFS BY MOUTH EVERY 4 HOURS NEEDED FOR WHEEZING OR SHORTNESS OF BREATH 18 g 3 5 Active cholecalciferol (Vitamin D-3) 10 MCG (400 UNIT) tablet TAKE 2 TABLETS BY MOUTH ONCE DAILY IN THE MORNING 180 tablet 1 5 Active atorvastatin (Lipitor) 80 MG tabletIndications: Mixed hyperlipidemia TAKE 1 TABLET BY MOUTH EVERY MORNING 90 tablet 3 5 Active fluticasone (Flonase) 50 MCG/ACT nasal spray INSTILL 1 SPRAY IN EACH NOSTRIL TWICE DAILY DIRECTED 48 g 5 Active nabumetone (Relafen) 750 MG tabletIndications: Arthritis TAKE 1 TABLET BY MOUTH TWICE DAILY IN THE MORNING AND IN THE EVENING 180 tablet 1 5 Active lisinopril 2.5 MG tabletIndications: Benign essential hypertension TAKE 1 TABLET BY MOUTH EVERY MORNING 90 tablet 1 5 Active diphenhydrAMINE (BENADryl) 25 MG capsuleIndications :Skin rash Take 1 capsule (25 mg) by mouth every 4 (four) hours if needed for itching. 30 capsule 5 026 Active amitriptyline (Elavil) 25 MG tabletIndications: Chronic migraine without aura without status migrainosus, not intractable TAKE 1 TABLET BY MOUTH AT BEDTIME 30 tablet 2 5 Active baclofen (Lioresal) 10 MG tabletIndications: Musculoskeletal pain TAKE 1 TABLET BY MOUTH THREE TIMES DAILY NEEDED 90 tablet 1 5 Active meclizine (Antivert) 25 MG tablet Take 1 tablet (25 mg) by mouth if needed in the morning, at noon, and at bedtime for dizziness for up to 10 days. 30 tablet 5 025 Active Active Problems Problem Noted Date Diagnosed Date Dysuria 11/18/2024 Assessment & Plan (11/18/2024 9:32 AM EDT): Will send for culture, treat pending culture results, 10/29 culture was negative Skin rash 11/18/2024 Assessment & Plan (11/18/2024 9:31 AM EDT): Pt reports direct correlation between itching sensation and previously prescribed macrobid No visible rash today Prn diphenhydramine sent encouraged hydration UTI symptoms 10/29/2024 Assessment & Plan (10/29/2024 10:48 AM EDT): UA and culture ordered today I will treat her meanwhile on patient will be contacted with results Vaginal itching 10/29/2024 Assessment & Plan (11/18/2024 9:32 AM EDT): Given the vaginal itching is constant and last urine culture was negative, reasonable to treat for vaginal beatrice, Viral upper respiratory tract infection 10/30/19 Assessment & Plan (10/29/2024 10:49 AM EDT): Drink plenty of fluids and rest Acetaminophen as needed Bilateral shoulder pain 02/12/2024 Assessment & Plan (02/12/2024 1:27 PM EDT): -acute on chronic pain without reported evidence of injury [place] [facility] [place] -advised continue current pain [...] today -will obtain past colonoscopy [place] [facility]. Is being followed by GI for GERD [...] of lipitor 80 mg -will refer to [facility] for assistance with medication organization [...] BID -start doxycycline BID for 5 days -(C allergy hx)--explained to avoid sun,and to take [...] Encounters Date Type Department Care Team Description 01/01/2025 Telephone [facility] MEDICINE [address] [place] [phone] Fawn Whittington NP No Show 12/31/2024 9:20 AM EDT Office Visit [facility]ALK[facility] [address] [place] [address] Name, MD Kingsley Vertigo (Primary Dx) 12/31/[address] [address] Douglas Marcos [place] CHARTPREP 12/31/2024 Travel 11/24/[address] [address] Fawn Whittington NP Chronic migraine without aura without status migrainosus, not intractable; Musculoskeletal pain 11/18/2024 9:20 AM EDT Office Visit [facility] [address] [place] [address] Mary Ellen Flores NP Dysuria (Primary Dx); Skin rash; Vaginal itching 11/18/[address] [address] Fawn Whittington NP Change PCP (PT requesting new PCP due to lack of communication and medical attention from current PCP) 11/18/2024 Travel 11/01/2024 Refill [facility] & PEDS [address] [place] [address] Fawn Whittington NP Benign essential hypertension 10/29/2024 10:20 AM EDT Office Visit [facility] [address] [place] [address] Nannette Batres MD Viral upper respiratory tract infection (Primary Dx); Viral URI; Urinary tract infection symptoms; UTI symptoms; Vaginal itching from Last 3 Months Immunizations Immunization Administration Dates Next Due Influenza Injectable Quadriv [...] Sign Reading Time Taken Comments Blood Pressure 152/75 12/31/2024 8:45 AM EDT Pulse 85 12/31/2024 8:45 AM EDT Temperature 36.6 C (97.9 F) 12/31/2024 8:45 AM EDT Respiratory Rate 16 12/31/2024 8:45 AM EDT Oxygen Saturation 98% 12/31/2024 8:45 AM EDT Inhaled Oxygen Concentration - - Weight 74.5 kg (164 lb 3.2 oz) 11/18/2024 9:07 A M EDT Height 170.2 cm (5' 7 ) 06/05/2024 4:06 PM EST Body Mass Index 25.72 06/05/2024 4:06 PM EST Plan of Treatment Upcoming Encounters Date Type Department Care Team (Late st Contact Info) Description 02/26/2025 9:30 AM EDT Office Visit [facility] MEDICINE [address] [place] [address] Nannette Batres MD [address] [place] [address] Health Maintenance Due Date Last Done Comments CT Colonography 1960 FIT DNA/Cologuard 1960 FIT 1960 FOBT 1960 Sigmoidoscopy 1960 Hepatitis C Screening 09/29/1977 Pap Smear 09/29/1980 Cervical Cancer Screening 09/29/1989 HPV/Cotest 09/29/1989 Colonoscopy 08/14/2023 08/13/2013 Colorectal Cancer Screening 08/14/2023 Mammogram 06/16/2024 06/16/2023, 1210/2020, 04/19/2021 Influenza Vaccine (#1) 2025 , 05/10/2023, 02/15/2022, Additional history exists Diabetes: Hemoglobin A1C 02/05/2025 024, 08/05/2022, 08/23/2021, [...] Aged 60 years or older Completed 11/03/2023 HIB Vaccines Aged Out No longer eligi [...] patient's age to complete this topic Meningococcal B Vaccine Aged Out No l onger eligible based on patient's age to complete [...] Author Blood Pressure < 150/90 Blood Pressure 152/75( 025 8:45 AM EDT) No Yung Isaacs Procedures Procedure Name Priority Date/Time Associated Diagnosis Comments CULTURE, URINE, ROUTINE Routine 11/18/2024 9:33 AM EDT Dysuria POCT URINALYSIS DIPSTICK Routine 11/18/2024 9:32 AM EDT Dysuria CULTURE, URINE, ROUTINE Routine 10/29/2024 10:33 AM EDT Urinary tract infection symptoms POCT URINALYSIS DIPSTICK Routine 10/29/2024 10:18 AM EDT Urinary tract infection symptoms POCT INFLUENZA B (ID NOW RAPID MOLECULAR) Routine 10/29/2024 10:18 AM EDT Viral URI POCT INFLUENZA A (ID NOW RAPID MOLECULAR) Routine 10/29/2024 10:18 AM EDT Viral URI POCT RAPID STREP A Routine 10/29/2024 10 :18 AM EDT Viral URI POCT RAPID COVID ANTIGEN Routine 10/29/2024 10:18 AM EDT Viral URI HEMOGLOBIN A1C Routine 02/06/2024 9:55 AM EDT LIPID PANEL, STANDARD Routine 02/06/2024 9:55 AM EDT BI MAMMOGRAM SCREENING TOMOSYNTHESIS BILATERAL Routine 06/16/2023 1:10 PM EST HM COLONOSCOPY Routine 08/13/2013 10:20 AM EDT from Last 3 Months or Most Recently Relevant to Health Maintenance Results * Culture, Urine, Routine (11/18/2024 9:33 AM EDT) Only the most recent of2 resultswithin the time period is included. Urine Urine specimen obtained by clean catch procedure / Unknown 11/18/2024 9:33 AM EDT 11/18/2024 6:13 PM EDT Comment:UACC Narrative [facility] - 11/20/2024 9:37 AM EDT Urine Culture Report Result Urine Culture < 10,000 cfu/ml Specimen Source: Urine clean catch Mary Ellen Flores CANCER PROGRAM DIRECTOR LAB MICROBIOLOGY - GENERAL ORDER MARIA ESTHER Final Result [facility] [address] [place] [phone] * (ABNORMAL) POCT urinalysis dipstick manually resulted (11/18/2024 9:32 AM EDT) Only the most recent of2 resultswithin the time period is included. Color, UA Yellow Clarity, UA Clear Glucose, UA Negative Bilirubin, UA Negative Ketones, UA Positive Comment:trace Spec Grav, UA 1.015 Blood, UA Positive(A) Negative, None Detected Comment:trace- intact pH, UA 5.5 Protein, UA Negative Urobilinogen, UA 0.2 Leukocytes, UA Few 15(A) Negative, Rare, Trace Comment:small Nitrite, UA Negative Negative, None Detected Urine 11/18/2024 9:32 AM EDT us Mary Ellen Flores NP POINT OF CARE TEST ENTER/EDIT OR DERABLES Final Result * Influenza B (ID NOW Rapid Molecular) (10/29/2024 10:18 AM EDT) Influenza B Negative Negative, Indeterminate [facility] Swab 10/29/2024 10:1 8 AM EDT us Nannette Sevilla MD POINT OF CARE TEST EN TER/EDIT ORDERABLES Final Result Performing Organization Address [facility]/ZIP Co de Phone Number [facility] [address] [place] [phone] * Influenza A (ID NOW Rapid Molecular) (10/29/2024 10:18 AM EDT) Influenza A Negative Negative, Indeterminate [facility] Swab 10/29/2024 10:1 8 AM EDT us Nannette Sevilla MD POINT OF CARE TEST EN TER/EDIT ORDERABLES Final Result Performing Organization Address [facility] Co de Phone Number [facility] [address] [place] [phone] * POCT Rapid COVID Ag (10/29/2024 10:18 AM EDT) Rapid COVID Ag Negative [facility] Swab 10/29/2024 10:1 8 AM EDT us Nannette Sevilla MD POINT OF CARE TEST EN TER/EDIT ORDERABLES Final Result Performing Organization Address [facility] Co de Phone Number [facility] [address] [place] [phone] * POCT rapid strep A manually resulted (10/29/2024 10:18 AM EDT) Rapid Strep A Screen Negative Negative, None Detected [facility] Swab 10/29/2024 10:1 8 AM EDT us Nannette Sevilla MD POINT OF CARE TEST EN TER/EDIT ORDERABLES Final Result Performing Organization Address [facility] Co de Phone Number [facility] [address] [place] [phone] * Hemoglobin A1c (02/06/2024 9:55 AM EDT) Hemoglobin A1c 5.7 <6.0 % [facility] Comment:Hemoglobin A1C Refer ence Range Adults: 4.8 - 6.0 % Non diabetic: < 6.0 % Goal: < 7.0 %Additional Action Suggested: > 8.0 %Note: Hemoglobin A1c results are invalid for patients with abnormal amounts of HbF. Blood transfusions may impact the HbA1c concentration in the patient sample. Estimated Average Glucose 117 mg/dL [facility] Comment:eAG = Estimated ave rage glucose which is %A1C expressed asaverage glucose, using the formula of the P2Y-TjiceksLwvouqa Glucose study (ADAG), Diabetes Care, Vol.31,#8,Dec. 2007 02/06/2024 9:55 AM EDT 02/06/2024 11:14 AM EDT Fawn Whittington CANCER PROGRAM DIRECTOR LAB BLOOD ORDERABLES Final Resu lt [facility] [address] [place] [phone] * (ABNORMAL) Lipid Panel, Standard (02/06/2024 9:55 AM EDT) Triglycerides 74 <150 mg/dL [facility] Comment:Desirable Triglyceri de: less than 150 mg/dLBorderline High Triglyceride 150-199 mg/dLHigh Triglyceride: 200-499 mg/dLVery High Triglyceride: greater than or equal to 5OO mg/dL Cholesterol 216(H) <200 mg/dL [facility] Comment:Desirable Cholestero l: less than 200 mg/dLBorderline High Cholesterol: 200-239 mg/dLHigh Cholesterol: greater than 239 mg/dL LDL Cholesterol Calculated 141(H) <100 mg/dL [facility] Comment:Desirable LDL: less than 100 mg/dLNear Optimal/Above Optimal LDL: 110- 129 mg/dLBorderline High LDL: 130-159 mg/dLHigh LDL: 160-189 mg/dLVery High LDL: greater than or equal to 190 mg/dL HDL Cholesterol 61 >40 mg/dL [facility] Comment:Desirable HDL: great er than 40 mg/dL Note: This HDL assay may give artificially low results in patients with liver disease. 02/06/2024 9:55 AM EDT 02/06/2024 11:14 AM EDT Fawn Whittington NP LAB BLOOD ORDERABLES Final Resu lt [facility] [address] [place] [phone] [phone] * BI Mammogram Screening Tomosynthesis Bilateral (06/16/2023 1:10 PM EST) Anatomical Region Laterality Modality Breast Bilateral Mammography 06/16/2023 1:10 PM EST Narrative 07/08/2023 11:31 AM EST [facility] [address] [place] [address] Mammography Report Signed Patient: Crystal Panchal MR#: [id number] : 1960 Acct:[id number] Age/Sex: 62 / F ADM Date: 06/16/23 Loc: HO.MAMMO Attending Dr: Fawn Whittington NP Ordering Physician: Fawn Whittington Results: 1Negative Date of Service: 06/16/23 Follow Up: 1 Year From [facility] Mammogram Procedure(s): MM tomosynthesis screening BI Accession Number(s): [id number] cc: Fawn Whittington EXAMINATION: MM SCREENING DIGITAL [...] in OV> 07/08/23 1128 DD/ 1310 TD/TT: Paper Tube Cutter: Procedure Note Donotuseinterpreter, Image - 07/08/2023 [facility] [address] [place] [address] Mammography Report Signed Patient: Crystal Panchal MMR#: [id number] : 1960Acct:[id number] Age/Sex: 62 / FADM Date: 06/16/23 Loc: JOSE Attending Dr: Fawn Whittington CANCER PROGRAM DIRECTOR Ordering Physician: Fawn WhittingtonResults: 1Negative Date of Service: 06/16/23Follow Up: 1 Year From Orig inal Mammogram Procedure(s): MM tomosynthesis screening BI Accession Number(s): [id number] cc: Fawn Whittington EXAMINATION: MM SCREENING DIGITAL [...] in OV> 07/08/23 1128 DD/ 1310 TD/TT: Paper Tube Cutter: Fawn Appram CANCER PROGRAM DIRECTOR IMG BI PROCEDURES Edited Result - Final * Hm Colonoscopy (08/13/2013 10:20 AM EDT) Historical Provider HEALTH MAINTENANCE Final Result from Last 3 Months or Most Recently Relevant to Health Maintenance Insurance [facility] STANDARD MEDICARE Care Teams Equal Opportunity Representative Relationship Specialty Start Date End Date Fawn Whittington NP [address] [place] [address] PCP - General Family Medicine 02/21/23 Kobe Hope MD [address] [place] [phone] Hematology and Oncology 08/02/23 Harris Ring MD [address] [place] [phone] Otolaryngology 08/02/23 Tanmay Meza Geriatric Social WorkerBanking Services Advisor 07/13/23
--- OUTSIDE RECORDS SUMMARY | 2025-01-10 13:00 | XMS_ITS | Encounter Summary ---
Author Organization [employer] Address [address] [facility] [address] [place] [address] Care Team Providers Care Crabbing Machine Operator Name Role Phone Fawn Whittington NP Primary Care Provider [phone] Kobe Hope MD Unavailable [phone] Harris Ring MD Unavailable [phone] Reason for Visit * Reason Comments Med Refill Encounter Details Date Type Department Care Team ([facility] st Contact Info) Description 10/04/2023 Refill [facility] MEDICINE [address] [place], [place] [phone] Name, MD Kingsley [address] [place] [address] Arthritis Social History Tobacco Use Types Packs/Day [...] Description 02/26/2025 9:30 AM EDT Office Visit [facility] MEDICINE [address] [place] [address] Nannette Batres MD [address] [place] [address] documented as of this encounter Visit Diagnoses Diagnosis Arthritis Unspecified arthropathy, site unspecified documented in this encounter Additional Health Concerns Assessment Noted Time PHQ-9 Depression Total Score: 0 11/03/19 23 10:04 AM EDT documented as of this encounter Care Teams Crabbing Machine Operator Relationship Specialty Start Date End Date Fawn Whittington NP [address] [place] [address] PCP - General Family Medicine 02/21/23 Kobe Hope MD [address] [place] [phone] Hematology and Oncology 08/02/23 Harris Ring MD [address] [place] [address] Otolaryngology 08/02/23 Tanmay Meza Hydrotreater OperatorRejector 07/13/23 documented as of this encounter
--- OUTSIDE RECORDS SUMMARY | 2025-01-10 13:00 | XMS_ITS | Encounter Summary ---
Author Organization [employer] Address [address] [facility] [address] [place] [address] Care Team Providers Care Soc Analyst Name Role Phone Fawn Whittington NP Primary Care Provider [phone] Kobe Hope MD Unavailable [phone] Harris Ring MD Unavailable [phone] Reason for Visit * Reason Onset Date Comments Change PCP 06/14/2024 Encounter Details Date Type Department Care Team (Late st Contact Info) Description 06/14/2024 Telephone [facility] MEDICINE [address] [place] [address] Fawn Whittington NP [address] [place] [address] Change PCP Social History Tobacco Use Types [...] 06/14/2024 11:37 AM EST Tc from pt career technical counselor requesting to switch providers. Pt is requesting a korean speaking provider. Asbestos Siding Mechanic advise of mis manager services. Contact pt career technical counselor Tanmay at [phone]. documented in this encounter Plan of Treatment Upcoming Encounters Date Type Department Care Team ([facility] st Contact Info) Description 02/26/2025 9:30 AM EDT Office Visit [facility] MEDICINE [address] [place] [address] Nannette Batres MD [address] [place] [address] documented as of this encounter Goals Goal Patient Goal Type Associated Problems Recent Progress Patient-Stated? Author Blood Pressure < 150/90 Blood Pressure 152/75( 025 8:45 AM EDT) No Yung Isaacs documented as of this encounter Visit Diagnoses Not on filedocumented in this encounter Additional Health Concerns Assessment Noted Time PHQ-9 Depression Total Score: 3 02/12/20 24 9:13 AM EDT documented as of this encounter Care Teams Soc Analyst Relationship Specialty Start Date End Date Fawn Whittington NP [address] [place] [address] PCP - General Family Medicine 02/21/23 Kobe Hope MD [address] [place] [address] Hematology and Oncology 08/02/23 Harris Ring MD [address] [place] [address] Otolaryngology 08/02/23 Tanmay Meza Cement Tile MakerCulture Room Worker 07/13/23 documented as of this encounter
--- OUTSIDE RECORDS SUMMARY | 2025-01-10 13:00 | XMS_ITS | Encounter Summary ---
Author Organization [employer] Address [address] [facility] 7[address] [place] [address] Care Team Providers Care Curer Foam Rubber Name Role Phone Fawn Whittington NP Primary Care Provider [phone] Kobe Hope MD Unavailable Harris Ring MD Unavailable [phone] Reason for Visit * Reason Onset Date Comments Change PCP 09/11/2024 Encounter Details Date Type Department Care Team (Late st Contact Info) Description 09/11/2024 Telephone [facility] MEDICINE [address] [place] [address] Fawn Whittington NP [address] [place] [address] Change PCP Social History Tobacco Use Types [...] encounter Miscellaneous Notes * Telephone Encounter - Eric eVlez - 09/11/2024 3:31 PM EDT TC from pt Circular Knitter Helper Tanmay requesting to Change PCP due to pt not being satisfied with the service that she is being provided. Contact Tanmay if any questions at [phone] documented in this encounter Plan of Treatment Upcoming Encounters Date Type Department Care Team (Late st Contact Info) Description 02/26/2025 9:30 AM EDT Office Visit [facility] MEDICINE [address] [place] [address] Nannette Batres MD [address] [place] [address] documented as of this encounter Goals Goal [...] documented as of this encounter Care Teams Curer Foam Rubber Relationship Specialty Start Date End Date Fawn Whittington NP [address] [place] [address] PCP - General Family Medicine 02/21/23 Kobe Hope MD [address] [place] [phone] Hematology and Oncology 08/02/23 Harris Ring MD [address] [place] [address] Otolaryngology 08/02/23 Tanmay Meza Time Cycle OperatorHvac Lead 07/13/23 documented as of this encounter
--- OUTSIDE RECORDS SUMMARY | 2025-01-10 13:00 | XMS_ITS | Encounter Summary ---
Author Organization [employer] Address [address] [facility] 7t [place] [address] Care Team Providers Care Plastic Worker Name Role Phone Fawn Whittington NP Primary Care Provider [phone] Kobe Hope MD Unavailable [phone] Harris Ring MD Unavailable [phone] Reason for Visit * Reason Comments Med Refill Encounter Details Date Type Department Care Team ([facility] st Contact Info) Description 04/21/2024 Refill [facility] MED & PEDS [address] [place] [address] Fawn Whittington NP [address] [place] [address] Arthritis Social History Tobacco Use Types Packs/Day [...] Description 02/26/2025 9:30 AM EDT Office Visit [facility] MEDICINE [address] [place] [address] Nannette Batres MD [address] [place] [address] documented as of this encounter Goals Goal Patient Goal Type Associated Problems Recent Progress Patient-Stated? Author Blood Pressure < 150/90 Blood Pressure 152/75( 025 8:45 AM EDT) Yung Gates documented as of this encounter Visit Diagnoses Diagnosis Arthritis Unspecified arthropathy, site unspecified documented in this encounter Additional Health Concerns Assessment Noted Time PHQ-9 Depression Total Score: 3 02/12/20 24 9:13 AM EDT documented as of this encounter Care Teams Plastic Worker Relationship Specialty Start Date End Date Fawn Whittington NP [address] [place] [address] PCP - General Family Medicine 02/21/23 Kobe Hope MD [address] [place] [address] Hematology and Oncology 08/02/23 Harris Ring MD [address] [place] [address] Otolaryngology 08/02/23 Tanmay Meza Basting MarkerInternal Medicine Physician 07/13/23 documented as of this encounter
--- OUTSIDE RECORDS SUMMARY | 2025-01-10 13:00 | XMS_ITS | Encounter Summary ---
Author Organization [employer] Address [address] [facility] 7t [place] [address] Care Team Providers Care Plow And Boring Machine Tender Name Role Phone Fawn Whittington NP Primary Care Provider [phone] Kobe Hope MD Unavailable [phone] Harris Ring MD Unavailable [phone] Encounter Details Date Type Department Care Team (Late st Contact Info) Description 05/10/2023 Abstract [facility] MEDICINE [address] [place] [address] [place], [place] Social History Tobacco Use Types Packs/Day [...] Description 02/26/2025 9:30 AM EDT Office Visit [facility] MEDICINE [address] [place], [place] [phone] Nannette Batres MD [address] [place] [address] documented as of this encounter Procedures Procedure Name Priority Date/Time Associated Diagnosis Comments MAMMOGRAPHY Routine 04/19/2021 documented in this encounter Results * Mammography (04/19/2021) Mammogram Negative Comment:Bi-Rads 1 Negative Anatomical Region Laterality Modality Other us Luis Carlos Hurd MD HEALTH MAINTENANCE Final Res ult documented in this encounter Visit Diagnoses Not on filedocumented in this encounter Additional Health Concerns Assessment Noted Time PHQ-9 Depression Total Score: 0 11/03/19 10:04 AM EDT documented as of this encounter Care Teams Plow And Boring Machine Tender Relationship Specialty Start Date End Date Fawn Whittington NP [address] [place] [address] PCP - General Family Medicine 02/21/23 Kobe Hope MD [address] [place] [address] Hematology and Oncology 08/02/23 Harris Ring MD [address] [place] [address] Otolaryngology 08/02/23 Tanmay Meza Leather LacerTerminal Superintendent 07/13/23 documented as of this encounter
--- OUTSIDE RECORDS SUMMARY | 2025-01-10 13:00 | XMS_ITS | Encounter Summary ---
Author Organization [employer] Address [address] [facility] 7t [place] [address] Care Team Providers Care Center Lead Consultant Name Role Phone Fawn Whittington NP Primary Care Provider [phone] Kobe Hope MD Unavailable [phone] Harris Ring MD Unavailable [phone] Reason for Visit * Reason Comments Med Refill Encounter Details Date Type Department Care Team ([facility] st Contact Info) Description 07/11/2024 Refill [facility] CHC MED & PEDS [address] [place] [address] Fawn Whittington NP [address] [place] [address] Pancytopenia (CMS/HCC) Social History Tobacco Use Types [...] Description 02/26/2025 9:30 AM EDT Office Visit [facility] MEDICINE [address] [place], [place] [phone] Nannette Batres MD [address] [place] [address] documented as of this encounter Goals Goal [...] documented as of this encounter Care Teams Center Lead Consultant Relationship Specialty Start Date End Date Fawn Whittington NP [address] [place] [address] PCP - General Family Medicine 02/21/23 Kobe Hope MD [address] [place] [address] Hematology and Oncology 08/02/23 Harris Ring MD [address] [place] [address] Otolaryngology 08/02/23 Tanmay Meza Admissions AdvisorPillow Filler 07/13/23 documented as of this encounter
--- OUTSIDE RECORDS SUMMARY | 2025-01-10 13:00 | XMS_ITS | Encounter Summary ---
Author Organization [employer] Address 75 [facility] 7t [place] [address] Care Team Providers Care Trip Motor Operator Name Role Phone Fawn Whittington NP Primary Care Provider [phone] Kobe Hope MD Unavailable [phone] Harris Ring MD Unavailable Encounter Details Date Type Department Care Team (Late st Contact Info) Description 07/10/2024 Orders Only [facility] MEDICINE [address] [place] [address] Fawn Whittington NP [address] [place] [address] Social History Tobacco Use Types Packs/Day Years [...] Description 02/26/2025 9:30 AM EDT Office Visit [facility] MEDICINE [address] [place] [address] Nannette Batres MD [address] [place] [address] documented as of this encounter Goals Goal [...] documented as of this encounter Care Teams Trip Motor Operator Relationship Specialty Start Date End Date Fawn Whittington NP [address] [place] [address] PCP - General Family Medicine 02/21/23 Kobe Hope MD [address] [place] [address] Hematology and Oncology 08/02/23 Harris Ring MD [address] [place] [address] Otolaryngology 08/02/23 Tanmay Meza Rural Electrification EngineerAutomatic Punch Press Operator 07/13/23 documented as of this encounter
[2025-01-10 13:05] VITALS: BP 134/56; PULSE 66; O2SAT 98; BMI 25.1
== END 2025-01-10 13:48 | disposition home or self-care (01) ==
PROVIDERS: Family Provider Nurse Practitioner Family; PCP Nurse Practitioner Family; Visit Provider Nurse Practitioner Family
DX: K21.9 Gastro-esophageal reflux disease without esophagitis (principal); K59.04 Chronic idiopathic constipation; R10.13 Epigastric pain; Z12.11 Encounter for screening for malignant neoplasm of colon
CPT/HCPCS: 99214; G2211

== ENCOUNTER → 2025-01-10 12:33 | Outpatient (BNVA) | payer MEDICARE, MEDICAID, SELFPAY | PROVIDERS: Visit Provider Nurse Practitioner Family | DX: K21.9 Gastro-esophageal reflux disease without esophagitis (principal); K59.04 Chronic idiopathic constipation; R10.13 Epigastric pain; Z12.11 Encounter for screening for malignant neoplasm of colon | CPT/HCPCS: 99212 ==

== ENCOUNTER 2025-01-21 12:49 | Day surgery (SDC) | payer MEDICARE, MEDICAID, SELFPAY ==
--- NOTE | 2025-01-20 11:51 | HO.ANESPROP2 ---
Documented by User: Diana Dey NP 01/20/25 11:55 HPI - Anesthesia Eval Consult details Narrative: 64yo F for Upper Endoscopy and Colonoscopy Follows [facility] heme for normochromic normocytic anemia. PMFSH Active Problems Active Problems: All Active Problems GERD (gastroesophageal reflux disease) (Acute) Chronic idiopathic constipation (Acute) Epigastric pain (Acute) Impingement syndrome of right shoulder (Acute) Arthritis of left hand (Acute) Mucous cyst of digit of left hand (Acute) Pancytopenia (Chronic) Past Medical History Medical History Chronic asthma HTN (hypertension) Arthritis High cholesterol Family History Family History Mother Diabetes HTN (hypertension) Paternal Aunt Cancer of neck Paternal Uncle Cancer of neck Surgical History Surgical History (Updated 01/21/25 @ 13:21 by Tiny Valencia RN) History of partial hysterectomy History of cholecystectomy History of esophagogastroduodenoscopy (EGD) Hx of colonoscopy (~2018) Social History Social History Household Members: Children Housing: Apartment Are you a primary child day care teacher to a significant other at home: No Do you presently have visiting nurse or other home services: No Alcohol intake: never Patient Tobacco Use Status: Never used Tobacco Use of substances other than those prescribed or required for medical reasons: No Are you DNR?: No Advance Directives: No Advance Directives Information Provided: Yes service: No Current occupational status: disabled Meds Allergies Allergy/AdvReac Type Severity Reaction Status Date / Time Penicillins (PENICILLINS) Allergy Intermediate RASH Verified 01/21/25 13:22 hydrocodone AdvReac Unknown Palpitation Verified 01/21/25 13:22 s narcotics AdvReac Mild heart Uncoded 01/10/25 12:59 palpitations Home Medications ?Medication ?Instructions ?Recorded ?Confirmed ?Last Taken ?Type acetaminophen 650 mg 650 mg PO Q12H 07/08/20 01/21/25 Unknown History tablet,extended release (Tylenol 8 Hour) ascorbic acid (vitamin C) 500 mg 500 mg PO DAILY 02/26/21 01/21/25 Unknown History tablet (Vitamin C) fluticasone propionate 50 1 - 2 spray intranasal DAILY PRN 10/15/21 09/09/25 Unknown History mcg/actuation nasal Congestion spray,suspension carboxymethylcellulose sodium 0.5 1 drp ophthalmic (eye) QID PRN Dry 08/27/21 01/21/25 Unknown History % eye drops in a dropperette Eye(S) (Lubricating Plus) blood pressure test kit-large #1 ea 09/21/21 01/21/25 Unknown History atorvastatin 80 mg tablet 80 mg PO DAILY 10/13/22 01/21/25 Unknown History cyanocobalamin (vitamin B-12) 1,000 mcg PO DAILY 06/02/23 01/21/25 Unknown History 1,000 mcg tablet lidocaine 5 % topical patch 5 patch topical DAILY 06/02/23 01/21/25 Unknown History loratadine 10 mg tablet 10 mg PO QAM 09/11/24 01/21/25 Unknown History nabumetone 750 mg tablet 750 mg PO BID 09/11/24 01/21/25 Unknown History baclofen 10 mg tablet 10 mg PO TID PRN Pain 01/10/25 01/21/25 Unknown History polyvinyl alcohol 1.4 % eye drops 1 drp ophthalmic (eye) DAILY PRN 01/10/25 01/21/25 Unknown History Dry Eye(S) Assessment and Plan Assessment Anesthesia Assessment: Chart Reviewed Documented by User: Jhonny Loredo MD 01/21/25 13:48 [facility] Past Medical History Medical History Chronic asthma HTN (hypertension) Arthritis High cholesterol Family History Family History Mother Diabetes HTN (hypertension) Paternal Aunt Cancer of neck Paternal Uncle Cancer of neck Family history of problems with anesthesia: No Surgical History Surgical History (Updated 01/21/25 @ 13:21 by Tiny Valencia RN) History of partial hysterectomy History of cholecystectomy History of esophagogastroduodenoscopy (EGD) Hx of colonoscopy (~2019) History of Problems with Anesthesia: No Social History Social History Household Members: Children Housing: Apartment Are you a primary child day care teacher to a significant other at home: No Do you presently have visiting nurse or other home services: No Alcohol intake: never Patient Tobacco Use Status: Never used Tobacco Use of substances other than those prescribed or required for medical reasons: No Are you DNR?: No Advance Directives: No Advance Directives Information Provided: Yes service: No Current occupational status: disabled Meds Allergies Allergy/AdvReac Type Severity Reaction Status Date / Time Penicillins (PENICILLINS) Allergy Intermediate RASH Verified 01/21/25 13:22 hydrocodone AdvReac Unknown Palpitation Verified 01/21/25 13:22 s narcotics AdvReac Mild heart Uncoded 01/10/25 12:59 palpitations Home Medications ?Medication ?Instructions ?Recorded ?Confirmed ?Last Taken ?Type acetaminophen 650 mg 650 mg PO Q12H 07/08/20 01/21/25 Unknown History tablet,extended release (Tylenol 8 Hour) ascorbic acid (vitamin C) 500 mg 500 mg PO DAILY 02/26/21 01/21/25 Unknown History tablet (Vitamin C) fluticasone propionate 50 1 - 2 spray intranasal DAILY PRN 02/26/21 01/21/25 Unknown History mcg/actuation nasal Congestion spray,suspension carboxymethylcellulose sodium 0.5 1 drp ophthalmic (eye) QID PRN Dry 08/27/21 01/21/25 Unknown History % eye drops in a dropperette Eye(S) (Lubricating Plus) blood pressure test kit-large #1 ea 09/21/21 01/21/25 Unknown History atorvastatin 80 mg tablet 80 mg PO DAILY 10/13/22 01/21/25 Unknown History cyanocobalamin (vitamin B-12) 1,000 mcg PO DAILY 06/02/23 01/21/25 Unknown History 1,000 mcg tablet lidocaine 5 % topical patch 5 patch topical DAILY 06/02/23 01/21/25 Unknown History loratadine 10 mg tablet 10 mg PO QAM 09/11/24 01/21/25 Unknown History nabumetone 750 mg tablet 750 mg PO BID 09/11/24 01/21/25 Unknown History baclofen 10 mg tablet 10 mg PO TID PRN Pain 01/10/25 01/21/25 Unknown History polyvinyl alcohol 1.4 % eye drops 1 drp ophthalmic (eye) DAILY PRN 01/10/25 01/21/25 Unknown History Dry Eye(S) Exam Exam Date and Time: 01/21/2025 Airway Mallampati Class: II TM Dist: >3cm Loose/Missing/Broken Teeth: No Heart: rrr Lungs: cta Other: lungs Assessment and Plan Assessment Anesthesia Assessment: Anesthesia Plan Discussed Final Anesthetic Review Family History of Problems with Anesthesia: No History of Problems with Anesthesia: No NPO: Yes ASA Class: II Final Preanesthetic Review: No Changes in Pt Med Stat, Meds/Allgs Chart Reviewed, Consent Obtained/Reviewed and Anes Risks/Benef Reviewed Patient Risk: Low Procedure Risk: Low Anesthetic Plan Anesthetic Plan: MAC: Disposition: Standard PACU
[2025-01-21 13:26] VITALS: BP 113/51; PULSE 69; RESP 15; TEMP 36.3; O2SAT 98; BMI 25.1
--- NOTE | 2025-01-21 13:26 | MHC.SHP ---
Pre-Procedural Eval Section A - 24 Hr Update-Section A only Date of Service: 01/21/25 The patient is an INPATIENT: No The patient has been examined within 24 hours of the surgical procedure. The History & Physical has been completed within 30 days and I have reviewed it.: Yes Section B - Complete if H&P > 30 days Chief Complaint: gerd,screening Allergies: Allergies Allergy/AdvReac Type Severity Reaction Status Date / Time Penicillins (PENICILLINS) Allergy Intermediate RASH Verified 01/21/25 13:22 hydrocodone AdvReac Unknown Palpitation Verified 01/21/25 13:22 s narcotics AdvReac Mild heart Uncoded 01/10/25 12:59 palpitations Plan Diagnosis/Plan: Unchanged I have reviewed the history and physical and performed a pertinent physical examination on my patient. No changes have occurred unless specified. Time Spent With Patient Time: Total time managing care of this patient today ____ minutes.
--- NOTE | 2025-01-21 13:29 | MHC.SHP ---
Pre-Procedural Eval Section A - 24 Hr Update-Section A only Date of Service: 01/21/25 The patient is an INPATIENT: No The patient has been examined within 24 hours of the surgical procedure. The History & Physical has been completed within 30 days and I have reviewed it.: Yes Section B - Complete if H&P > 30 days Chief Complaint: gerd,screening Details of Present Illness: Pt also reports intermittent dysphagia in pre-o Allergies: Allergies Allergy/AdvReac Type Severity Reaction Status Date / Time Penicillins (PENICILLINS) Allergy Intermediate RASH Verified 01/21/25 13:22 hydrocodone AdvReac Unknown Palpitation Verified 01/21/25 13:22 s narcotics AdvReac Mild heart Uncoded 01/10/25 12:59 palpitations Plan I have reviewed the history and physical and performed a pertinent physical examination on my patient. No changes have occurred unless specified. Time Spent With Patient Time: Total time managing care of this patient today ____ minutes.
[2025-01-21] MEDS: Lactated Ringers 1,000 ML 100 ML IVCONT (13:46)
--- NOTE | 2025-01-21 15:22 | P.OPN-COLO_ITS ---
Colonoscopy Operative Note Operative Note Date of Service: 01/21/25 Narrative: Procedure: Upper endoscopy and colonoscopy Indication: GERD, dysphagia, screening Endoscopist: Gita Rivas MD Anesthesia Provider: Dr Loredo Anesthesia type: MAC Instrument: [id number] and [id number]-[id number] EGD Procedure:?? The procedure, indications, preparation and potential complications were reviewed with the patient with the help of step finisher, who indicated understanding and gave written informed consent to proceed. The endoscope was introduced through the mouth, and advanced to the 2nd part of the duodenum. The mucosa was carefully examined on slow withdrawal of the endoscope. The patient tolerated the procedure well. There were no immediate complications.? EGD Findings:? * Esophagus:? Normal esophageal mucosa was noted. The Z-line was at 35 cm displaced by hiatal hernia with the diaphragmatic pinch at 39 cm. Cold forceps biopsies were taken from middle and lower esophagus to rule out eosinophilic esophagitis. * Stomach:? Erythema and erosions in the body and antrum. Retroflexion was performed in the cardia that had the appearance of a loose Abdelrahman wrap, though no surgical history noted. Random cold forceps biopsies were taken from the stomach. * Duodenum:? Erythema and edema noted in the duodenal bulb. Cold forceps biopsies were taken from the duodenal bulb and 2nd portion of the duodenum to rule out celiac sprue. Additional intervention: Soft tip Savary wire was introduced through the biopsy channel of the gastroscope and advanced to the antrum. ?The gastroscope was then backed out. ?Savary Sujata bougie was advanced over the guidewire and the esophagus was dilated to 18 with resistance felt. ?On relook, heme and superficial tear was noted at 16 cm from incisors. ? Colonoscopy Procedure:? The patient was then turned for the colonoscopy. A digital rectal exam was performed which was abnormal for external hemorrhoids.? A distal attachment cap was affixed to the tip of the scope and the colonoscope was then inserted through the anus and advanced through the colon and advanced to the cecum at 80 cm.? Appendiceal orifice and ileocecal valve were identified. Mucosa was carefully examined under high definition white light as the instrument was slowly withdrawn in a retrograde panoramic fashion. Retroflexion was performed in rectum. The procedure was not difficult. The quality of the prep was BBPS: 2+3+3 = adequate Withdrawal time 8 minutes Limitations: No limitations Findings: Mucosa: Normal colon and terminal ileum mucosa. Protruding lesions: * 1 sessile polyp of size 2 mm noted in the cecum. Cold forceps polypectomy was performed. The polyp was completely removed and retrieved. * 1 sessile polyp of size 3 mm noted in the transverse. Cold forceps polypectomy was performed. The polyp was completely removed and retrieved. * Medium internal hemorrhoids without stigmata of recent bleeding. Excavated lesions: * Moderate to severe diverticulosis of whole colon L>R. Impression: 1. Cricopharyngeal stenosis (dilation) 2. Normal esophageal mucosa (biopsy) 3. Hiatal hernia 4. Gastritis (biopsy) 5. Duodenitis (biopsy) 6. Normal colon mucosa 7. Total of 2 polyps removed 8. Diverticulosis 9. Internal and external hemorrhoids Recommendations:?? * Follow-up path results * Continue PPI * Avoid NSAIDs * H Pylori treatment if biopsies + * Upper endoscopy can be repeated as needed for recurrence of dysphagia * Repeat colonoscopy for CRC screening in 7-10 years.
[2025-01-21 15:31] VITALS: BP 126/58; PULSE 61; RESP 16; TEMP 36.6; O2SAT 98
[2025-01-21 15:46] VITALS: BP 143/51; PULSE 51; RESP 16; O2SAT 99
[2025-01-21 16:01] VITALS: BP 142/57; PULSE 58; RESP 16; TEMP 36.6; O2SAT 99
[2025-01-21] MEDS: Lidocaine HCl Viscous 2 % 15 ML SOLUTION MUCOUS MEM (16:16)
== END 2025-01-21 16:49 | disposition home or self-care (01) ==
PROVIDERS: PCP Internal Medicine; Visit Provider Internal Medicine
PROC: (CPT 45380; principal; 2025-01-21 14:40)
DX: Z12.11 Encounter for screening for malignant neoplasm of colon (principal); K63.5 Polyp of colon; K57.30 Diverticulosis of large intestine without perforation or abscess without bleeding; K64.8 Other hemorrhoids; K64.4 Residual hemorrhoidal skin tags; K21.9 Gastro-esophageal reflux disease without esophagitis; J39.2 Other diseases of pharynx; K29.60 Other gastritis without bleeding; K29.80 Duodenitis without bleeding; K22.9 Disease of esophagus, unspecified; K44.9 Diaphragmatic hernia without obstruction or gangrene; R13.10 Dysphagia, unspecified; I10 Essential (primary) hypertension; E78.00 Pure hypercholesterolemia, unspecified; J45.998 Other asthma; Z79.02 Long term (current) use of antithrombotics/antiplatelets; Z79.899 Other long term (current) drug therapy
CPT/HCPCS: 45380; 43248; 43239; 88305; 88313; 88342; J2003; J2704

== ENCOUNTER → 2025-01-21 12:49 | Outpatient (BNV) | payer MEDICARE, MEDICAID, SELFPAY | PROVIDERS: PCP Internal Medicine; Visit Provider Internal Medicine | DX: Z12.11 Encounter for screening for malignant neoplasm of colon (principal); K21.9 Gastro-esophageal reflux disease without esophagitis; R13.10 Dysphagia, unspecified; J39.2 Other diseases of pharynx; K29.70 Gastritis, unspecified, without bleeding; K29.80 Duodenitis without bleeding; D12.0 Benign neoplasm of cecum; D12.3 Benign neoplasm of transverse colon; K57.90 Diverticulosis of intestine, part unspecified, without perforation or abscess without bleeding; K64.8 Other hemorrhoids | CPT/HCPCS: 43239; 43248; 45380 ==

== ENCOUNTER 2025-04-01 09:28 | Outpatient (REF) | payer MEDICARE, MEDICAID, SELFPAY ==
[2025-04-01 11:27] LABS: MANUAL DIFF FLAG NO
[2025-04-01 12:03] LABS: Imm Gran Abs Auto 0.01 X10*3/uL (0.00-0.03); Imm Gran Pct Auto 0.2 % (0.0-0.4); NRBC Abs Auto 0.000 X10*3/uL (0.0-0.012); NRBC Pct Auto 0.0 /100WBC (0.0-0.2); Red Blood Count 4.12 X10*6/uL (4.20-5.50); SCAN SMEAR FLAG 1
[2025-04-01 12:05] LABS: Hematocrit 36.0 % (37.0-47.0); Hemoglobin 11.1 g/dl (12.0-16.0); Lymphocytes Absolute Auto 2.0 X10*3/uL (1.2-4.9); Mean Corpuscular HGB Conc 30.8 g/dl (31.0-35.0); Mean Corpuscular Hemoglobin 26.9 pg (27.0-33.0); Mean Corpuscular Volume 87.4 fL (80.0-98.0); Platelet Count 185 X10*3/uL (160-400); White Blood Count 4.5 X10*3/uL (4.8-10.8)
[2025-04-01 12:30] LABS: PLT ABN DIST 1
[2025-04-01 12:36] LABS: Ferritin 126 ng/mL (10-250)
[2025-04-01 12:38] LABS: Alanine Aminotransferase 14 U/L (0-31); Albumin Level 4.4 g/dL (3.5-5.0); Alkaline Phosphatase 54 U/L (39-117); Anion Gap 12 (12-20); Aspartate Amino Transferase 21 U/L (5-31); Blood Urea Nitrogen 16 mg/dL (9-16); Calcium 9.7 mg/dL (8.4-10.2); Carbon Dioxide 30 mmol/L (22-29); Chloride 105 mmol/L (96-108); Cholesterol 219 mg/dL (<200); Estimated Glomerular Filt Rate > 60; HDL Cholesterol 60 mg/dL (>40); Potassium 3.8 mmol/L (3.3-5.1); Sodium 143 mmol/L (135-145); Total Protein 7.7 g/dL (6.5-8.0); Triglycerides 80 mg/dL (<150)
[2025-04-01 12:46] LABS: ~HepC Num1 0.12 S/CO (0.00-0.79); ~Hepatitis C Antibody Nonreactive (Nonreactive)
[2025-04-01 12:52] LABS: Folate 11.7 ng/mL (> or = 4.0); Vitamin B12 583 pg/mL (200-900)
== END 2025-04-01 09:29 | disposition home or self-care (01) ==
LOC: HO.HHCL 09:28
PROVIDERS: Internal Medicine Medical Oncology; PCP Internal Medicine; Visit Provider Internal Medicine
DX: Z11.3 Encounter for screening for infections with a predominantly sexual mode of transmission (principal); Z11.59 Encounter for screening for other viral diseases; D61.818 Other pancytopenia; E78.5 Hyperlipidemia, unspecified; I10 Essential (primary) hypertension; R68.89 Other general symptoms and signs; Z79.899 Other long term (current) drug therapy
CPT/HCPCS: 36415; 80053; 80061; 82306; 82607; 82728; 82746; 83036; 84443; 85025; 86592; 86803

== ENCOUNTER 2025-04-16 12:26 | Outpatient (AMB) | payer MEDICARE, MEDICAID, SELFPAY ==
--- NOTE | 2025-04-16 12:33 | A.OFFVIS_ITS ---
Vital Signs 04/16/25 12:52 Height 5 ft 7 in Weight 160 lb BMI 25.1 Intake Visit Reasons: Left shoulder pain Intake Note: Crystal is a 64 year old Right hand dominant female who presents with complaints of progressively worsening left shoulder pain. She describes her pain as sharp in nature. Most of her pain is along the superior and lateral aspects of her shoulder. The patient did injure her shoulder 2 years ago when she fell while going up her stairs. She has failed the last 6 weeks of conservative treatment which has included Tylenol, anti-inflammatory medicines and a home exercise program. She reports difficulty lifting her left hand above shoulder height. Duplicator Punch Set Up Operator Required: Yes Duplicator Punch Set Up Operator Services: Duplicator Punch Set Up Operator Present Duplicator Punch Set Up Operator Name: Edi- Son Allergies Penicillins (PENICILLINS) Allergy (Intermediate, Verified 01/21/25 13:22) RASH hydrocodone Adverse Reaction (Unknown, Verified 01/21/25 13:22) Palpitations narcotics Adverse Reaction (Mild, Uncoded 01/10/25 12:59) heart palpitations Medication List - Last Reconciled 04/16/25 by Delmar Hicks MD acetaminophen ER (Tylenol 8 Hour) 650 mg PO Q12H albuterol sulfate 90 mcg/actuation 1 inh inhalation QID PRN ascorbic acid (vitamin C) (Vitamin C) 500 mg PO DAILY atorvastatin 80 mg PO DAILY baclofen 10 mg PO TID PRN blood pressure test kit-large As directed carboxymethylcellulose sodium 0.5% (Lubricating Plus) 1 drp ophthalmic (eye) QID PRN cholecalciferol (vitamin D3) 50 mcg PO DAILY cyanocobalamin (vitamin B-12) 1,000 mcg PO DAILY docusate sodium (Stool Softener) 200 mg (2 x 100 mg) PO QPM esomeprazole magnesium (Nexium) 40 mg PO DAILY famotidine (Pepcid) 20 mg PO BEDTIME ferrous gluconate 324 mg PO DAILY fluticasone propionate 50 mcg/actuation 1 - 2 sprays intranasal DAILY PRN lidocaine 5% 5 patches topical DAILY lisinopril 2.5 mg PO DAILY loratadine 10 mg PO QAM meclizine 50 mg PO BID PRN nabumetone 750 mg PO BID polyvinyl alcohol 1.4% 1 drp ophthalmic (eye) DAILY PRN sennosides (Natural Senna Laxative) 17.2 mg (2 x 8.6 mg) PO BEDTIME PFSH Medical History Sinusitis Chronic asthma HTN (hypertension) Arthritis High cholesterol Surgical History History of partial hysterectomy History of cholecystectomy History of esophagogastroduodenoscopy (EGD) Hx of colonoscopy (~2019) Family History Mother Diabetes HTN (hypertension) Paternal Aunt Cancer of neck Paternal Uncle Cancer of neck Social History Household Members: Children Housing: Apartment Are you a primary child care team lead to a significant other at home: No Do you presently have visiting nurse or other home services: No Alcohol intake: never Patient Tobacco Use Status: Never used Tobacco service: No Current occupational status: disabled Physical Exam Const Other: Well-nourished well-developed very friendly female awake alert and oriented x3 in no acute distress Extrem Other: Left shoulder examination shows decreased range of motion when compared to her right shoulder, 4+ out of 5 strength with supraspinatus testing, positive impingement signs, tenderness over her acromioclavicular joint, no instability Results Reviewed Results Reviewed: MRI of the patient's left shoulder show severe acromioclavicular joint narrowing, a type 2 acromion, signal change within the supraspinatus tendon due to rotator cuff tendinosis versus a small full-thickness tear Assessment & Plan Assessment & Plan (1) Left shoulder pain: Code(s): M25.512 - Pain in left shoulder (2) Impingement syndrome of left shoulder: Code(s): M75.42 - Impingement syndrome of left shoulder Category: Medical Plan Ms. Larry Bazan presents with progressively worsening left shoulder pain due to impingement syndrome, acromioclavicular joint arthritis and possible full- thickness rotator cuff tearing. I had a lengthy discussion with the patient regarding the treatment options. At this point she has failed continued non operative treatments. The risks and benefits of left shoulder surgery were discussed at length with the patient. The patient wishes to proceed with surgery. Surgery will involve left shoulder arthroscopic distal clavicle ex cision, left shoulder arthroscopic acromioplasty and possible left shoulder mini open rotator cuff repair. The patient will be scheduled for next available date. She will follow up as instructed. Feel free to call me at any time should questions regarding her orthopedic management arise. Thank you very much for asking me to see this very friendly patient. I spent 22 minutes in reviewing the patient's records and imaging studies, seeing the patient and documenting in the medical record. Coding Level of Care Code New Pt Level 3 (77535) Complex visit Add On G2211 Diagnoses Left shoulder pain M25.512 Impingement syndrome of left shoulder M75.42
[2025-04-16 12:52] VITALS: BMI 25.1
--- OUTSIDE RECORDS SUMMARY | 2025-04-16 14:45 | XMS_ITS | Data Portability ---
Author Organization [place] - [facility], Allergy Address [address] [address] Assessment Encounter Date Assessment Date Assessment LastModified by Organization Details LastModified Time 05/23/2024 05/23/2024 63 year old female with persistent left side of the throat globus sensation. She had normal fiberoptic laryngosocopy one year ago and declines fiberoptic laryngoscopy today. She had CT soft tissue neck with contrast at [facility] 06/06/23 which was normal. I discussed with [...] Organization Details Last Modified Time Details Appointments None recorded. Lab None recorded. Referral None recorded. Procedures None recorded. Surgeries None recorded. Imaging [place], modified barium swallow study 2024 025 [email or web address] [facility], [address], [place], [address], 5 11:21:41 Medication Orders doxycycline hyclate 100 mg capsule 2024 025 [facility], [address] [place], [place], [id number], 5 11:21:41 Patient TargetsNo targets recorded. Patient InstructionsNo [...] Name and Address Organization Details Recorded Time Allergic rhinitis 87424728 Active 2017 Perennial allergic rhinitis; Note: Date Diagnosed: 08/14/2017 11:40 AM (J30.89) Not Available [facility] 4 03:17:29 Nasal congestio n 57901761 Active 2017 Nasal congestion ; Note: Date Diagnosed: 08/14/2017 11:40 AM (R09.81) Not Available [facility] 4 03:17:28 Uncomplic ated mild persisten t asthma 185886656 Active 2017 Mild persistent asthma, uncomplica reji; Note: Date Diagnosed: 08/14/2017 11:40 AM (J45.30) Not Available 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 4 03:17:28 Chronic sinusitis 62182773 Active 2017 Other chronic sinusitis; Note: Date Diagnosed: 08/20/2017 3:30 PM (J32.8) Not Available 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 4 03:17:28 Feeling of lump in throat 347630599 Active 2024 LES ERWIN [address] [facility] [place] [address], [place], [address] , [facility] - [facility] 5 20:27:18 Dysphagia 51179990 Active 2024 LES ERWIN 100 [facility],[place] [address], [place], [address] , [facility] - [facility] 5 20:27:18 Acute sinusitis 01918561 Active 2024 LES ERWIN [address] [facility],[place] [address], [place], [address] , [facility] - [facility] [place] 5 20:27:18 Problem Notes None recorded. Procedures Surgical History Date Name Laterality Status Provider Name and Address Organization Details Recorded Time 02/14/2025 NasalEndos copy_DP cancelled LES ERWIN [address] [facility],[place] [address], [place], [address], [facility] - [facility] 02/13/2025 20:31:37 Imaging Results None recorded. Procedure Notes None recorded. Medical Equipment None Reported. Allergies Allergen ID Allergen Name Allergen Category Reaction Reaction Severity Criticality Documentation Date Start Date Code Code System Note Provider Name and Address Organization Details Recorded Time [id number] penicilli n V potassium medicatio n other Not available Not available 09/26/2023 5 RxNorm React ion: unkno wn, unspe cifie d;; Not Available [facility] 4 01:25:39 Medications Name Sig Start Date Stop Date Status Note LastModified by Organization Details LastModified Time medbox status USE DIRECTED 08/14 completed Not Available Not Available Not Available Nasal [place] (oxymetaz oline) 0.05 % GIVE 2 SPRAYS [...] completed Not Available Not Available Not Available fluconazo le 150 mg tablet TAKE 1 TABLET BY MOUTH ONCE A WEEK FOR 14 DAYS active Not Available Not Available No t Available senna 8.6 mg tablet TAKE 2 [...] Not Available Not Available No t Available prednison e 20 mg tablet TAKE 2 TABLETS BY MOUTH ONCE DAILY active Not Available Not Available No t Available cyanocoba danielle (vit B-12) 1,000 mcg tablet TAKE 1 TABLET BY MOUTH EVERY MORNING active Not Available Not Available No t Available clotrimaz ole 1 % vaginal cream INSERT ONE APPLICAT ORFUL VAGINALL Y AT BEDTIME FOR 7 DAYS. active Not Available Not Available No t Available acetamino phen 500 mg tablet TAKE 2 TABLETS BY MOUTH EVERY 8 HOURS NEEDED FOR MILD PAIN OR PAIN MODERATE FOR UP TO 10 DAYS active Not Available Not Available No t Available acetamino phen ER 650 mg tablet,ex tended release TAKE 2 TABLETS BY MOUTH EVERY 8 HOURS NEEDED. SWALLOW WHOLE WITH WATER. DO NOT BREAK, CRUSH, DISSOLVE OR CHEW. 08/14 completed Not Available Not Available Not Available Vitamin D3 10 mcg (400 unit) tablet TAKE 2 TABLETS BY MOUTH ONCE DAILY IN THE MORNING active Not Available Not Available No t Available famotidin e 20 mg tablet TAKE 1 TABLET BY MOUTH EVERY MORNING active Not Available Not Available No t Available amitripty line 25 mg tablet TAKE 1 TABLET BY MOUTH AT BEDTIME active Not Available Not Available No t Available amitripty line 10 mg tablet 08/14 completed Medicati on ID: [id number] B rand Name: amitript yline Se nd Method: E-Prescr ibed Sub s Allowed: subs OK Speci al Instruct ion: TAKE 1 TABLET BY MOUTH AT BEDTIME Medicati onGeneri cName: amitript yline Not Available Not Available Not Available meclizine 25 mg tablet TAKE 1 TABLET BY MOUTH THREE TIMES DAILY IN THE MORNING, AT NOON, AND AT BEDTIME NEEDED FOR DIZZINES S FOR UP TO 10 DAYS active Not Available Not Available No t Available baclofen 10 mg tablet TAKE 1 TABLET BY MOUTH THREE TIMES DAILY NEEDED active Not Available Not Available No t Available benzonata te 100 mg capsule TAKE 1 CAPSULE BY MOUTH THREE TIMES DAILY IN THE MORNING, AT NOON, AND AT BEDTIME NEEDED FOR COUGH 08/14 completed Not Available Not Available Not Available diphenhyd ramine 25 mg capsule TAKE 1 CAPSULE BY MOUTH EVERY 4 HOURS NEEDED FOR ITCHING active Not Available Not Available No t Available oseltamiv ir 75 mg capsule TAKE 1 CAPSULE BY MOUTH TWICE DAILY FOR 5 DAYS 08/14 completed Not Available Not Available Not Available esomepraz ole magnesium 40 mg capsule,d elayed release TAKE 1 CAPSULE BY MOUTH EVERY MORNING active Not Available Not Available No t Available lidocaine 5 % topical patch APPLY 1 PATCH TOPICALL Y TO SKIN, LEAVE ON FOR 12 HOURS AND OFF FOR 12 HOURS DIRECTED 08/14 completed Not Available Not Available Not Available docusate sodium 100 mg capsule TAKE 2 CAPSULES BY MOUTH EVERY DAY IN THE EVENING active Not Available Not Available No t Available bisacodyl 5 mg tablet,de layed release TAKE 4 TABLETS BY MOUTH AT NOON THE DAY BEFORE COLONOSC OPY active Not Available Not Available No t Available hydrochlo rothiazid e 25 mg tablet 05/16 completed Medicati on ID: [id number] D uration Value: 30 Brand Name: hydrochl [...] as needed 05/16 completed Medicati on ID: [id number] D uration Value: 10 Brand Name: ibuprofe n Send Method: E-Prescr ibed Sub s Allowed: subs OK Medic ationGen ericName : ibuprofe n Not Available Not Available Not Available polyethyl abi glycol 3350 17 gram/dose oral powder USE DIRECTED BY [facility] active Not Available Not Available No t Available propranol ol 20 mg tablet TAKE 1 TABLET BY MOUTH EVERY DAY 08/14 completed Not Available Not Available Not Available fluticaso ne propionat e 50 mcg/actua tion nasal spray,maico pension INSTILL 1 SPRAY IN EACH NOSTRIL TWICE [...] MOUTH EVERY 4 HOURS NEEDED FOR WHEEZING active Not Available Not Available No t Available Vitamin D3 25 mcg (1,000 unit) capsule 05/16 completed Medicati on ID: [id number] B rand Name: Vitamin D3 Send Method: E-Prescr ibed Sub s Allowed: subs OK Medic ationGen ericName : Vitamin D3 Not Available Not Available Not Available cyclobenz aprine 5 mg tablet 05/16 completed Medicati on ID: [id number] B rand Name: abi zaprine Send Method: E-Prescr ibed Sub s Allowed: subs OK Medic ationGen ericName : cycloben zaprine Not Available Not Available Not Available ciproflox acin 0.3 %-dexamet hasone 0.1 % ear drops,maico pension PLACE 4 DROPS IN EACH EAR TWICE DAILY FOR 7 DAYS 08/14 completed Not Available Not Available Not Available nitrofura ntoin monohydra te/macroc rystals 100 mg capsule TAKE 1 CAPSULE BY MOUTH TWICE DAILY FOR 7 DAYS 12/03 completed Not Available Not Available Not Available DOK 05/16 completed Medicati on ID: [id number] D uration Value: 30 Brand Name: DOK Send Method: E-Prescr ibed Sub s Allowed: subs KAYLA Specmickey al Instruct ion: TAKE 1 CAPSULE AT BEDTIME NEEDED M patricio [place] Name: DOK Not Available Not Available Not Available Advair HFA 115 mcg-21 mcg/actua tion aerosol inhaler 08/14 completed Medicati on ID: [id number] B rand Name: Advair HFA Send Method: E-Prescr ibed Sub s Allowed: subs KAYLA Prieto al Instruct ion: INHALE 2 PUFFS BY MOUTH IN THE MORNING RINSE MOUTH AFTER USING. M patricio Estherenert[place]ana Name: Advair HFA Not Available Not Available [...] powder inhaler 05/16 completed Medicati on ID: [id number] B rand Name: ProAir HFA Send Method: E-Prescr ibed Sub s Allowed: subs OK Medic ationGen ericName : ProAir HFA Medi cation ID: [id number] B rand Name: ProAir HFA Send Method: E-Prescr ibed Sub s Allowed: subs OK Medic ationGen ericName : ProAir HFA Not Available Not Available Not Available Compact Space Chamber USE WITH INHALER EVERY 4 HOURS NEEDED FOR ASTHMA active Not Available Not Available No t Available albuterol sulf 90 mcg/actua tion breath activated powder inhaler,s ensor 05/16 completed Medicati on ID: [id number] B rand Name: ProAir HFA Send Method: [...] Updated DateTime 05/23/2024 170.18 cm 24.7 kg/m2 58473.59 g Arianna Danielle [place] - [facility] 05/23/2024 11:02:14 Date Recorded Body height Body mass index (BMI) Body weight Provider Name and Address Organization Details Last Updated DateTime 08/14/2024 170.18 cm 25.1 kg/m2 54339.78 g Roxie Colon [place] - [facility] 08/14/2024 10:59:35 Social History None recorded. Functional Status None recorded. Mental Status None recorded. Family History Nothing Reported. Medical History No medical history recorded. Gynecological HistoryNo gynecological history recorded. Obstetrics History GPAL:G 0 P 0 0 0 0 Past Encounters Encounter ID Performer Location Encounter Start Date Encounter Closed Date Diagnosis/Indication Diagnosis SNOMED-CT Code Diagnosis ICD10 Code Diagnosis IMO Codes Diagnosis Note [id number] ESTHELA RODRIGUEZ PA-C [facility] [address] [place] [address] 05/23/2024 10:48:53 05/23/2024 11:25:53 Feeling of lump in throat 522009365 R09.89 Dysphagia 29207947 R13.1 0 [id number] ESTHELA RODRIGUEZ PA-C [facility] [address] [place] [address] 08/14/2024 10:48:10 08/14/2024 11:17:34 Acute sinusitis 47792921 J01.90 Dysphagia 55752256 R13.1 0 Feeling of lump in throat 776264295 R09.89 Health Concerns Section Related Observation LastModified by Organization Detai ls LastModified Time None Recorded Concern Status LastModified by Organization Details LastModified Time None Recorded Advance Directives Directive None Recorded Payers Insurance Date Sequence Insurance Name Policy Number Policy Torres Covered Member ID Torres Member ID Guarantor Name 02/12/2025 1 [place] [facility] Crystal Ferrer [id number] Crystal Ferrer Notes Date Note Type Note Provider Name and Address Organization Details Recorded Time 05/23/2024 text/html ROS as noted in the HPI 63 year old female seen [address] Ring for sore throat and a sensation that something is in the left side of the throat. Fiberoptic laryngoscopy at that visit was normal. She had a CT soft tissue neck with contrast 06/06/23 at [facility] which was normal. Her symptoms have been [...] translate for her. EMI RING MD [address] [facility],[place] [address], [place], [address], [facility] - [facility] 05/23/2024 16:44:58 08/14/2024 text/html ROS as noted in the HPI 63 year old female presents with son who translates for her. [...] soft tissue neck with contrast 06/06/23 at [facility] which was normal. Her symptoms have been stable for the past year. She is a nonsmoker. She does report some difficulty with swallowing both food and liquids. She does cough when she eats and drinks and feels like she is going to choke. She does have a history of GERD and is on Esomeprazole. ROSY WHITNEY MD [address] [facility],[place] [address], [place], [address], [facility] - [facility] 08/14/2024 17:19:27 OBGyn Episode No OBEpisode recorded.
== END 2025-04-16 13:06 | disposition home or self-care (01) ==
LOC: HO.HOS 12:26
PROVIDERS: PCP Internal Medicine; Visit Provider Orthopaedic Surgery
DX: M25.512 Pain in left shoulder (principal); M75.42 Impingement syndrome of left shoulder
CPT/HCPCS: 99204; G2211

== ENCOUNTER → 2025-04-16 12:26 | Outpatient (BNVA) | payer MEDICARE, MEDICAID, SELFPAY | PROVIDERS: PCP Internal Medicine; Visit Provider Orthopaedic Surgery | DX: M25.512 Pain in left shoulder (principal); M75.42 Impingement syndrome of left shoulder | CPT/HCPCS: 99202 ==

== ENCOUNTER 2025-04-28 08:42 | Outpatient (REF) | payer MEDICARE, MEDICAID, SELFPAY ==
--- NOTE | ~2025-04-28 | FL_ITS ---
EXAMINATION: XR UPPER GI AIR CONTRAST EXAM. CLINICAL INFORMATION: Gastroesophageal reflux disease without esophagitis. Question esophageal dilation COMPARISON: None available. TECHNIQUE: Bala upper GI air contrast study was performed in upright and lying position. FINDINGS: Following oral administration of thick barium and effervescent granules there is normal propagation of bolus without obstruction or narrowing. Intraluminal filling defect or extrinsic compression seen. On placing patient supine and prone lying there is small sliding hiatal hernia mild gastroesophageal reflux. The mucosal pattern of stomach, duodenal bulb and the sweep is normal. Incidental finding of cholecystectomy. FLUOROSCOPY TIME: 2 minutes and 12 seconds. DOSE AREA PRODUCT: [id number] uGy-m2 (microgray-meter squared) FL/FL upper GI w air w Ba Swallow IMPRESSION: Small sliding hiatal hernia with moderate gastroesophageal reflux. Electronically signed by: Rayo Nguyen MD 04/30/2025 07:13 AM GRIFFIN
== END 2025-04-28 08:43 | disposition home or self-care (01) ==
LOC: HO.XRAY 08:42
PROVIDERS: PCP Internal Medicine; Visit Provider Nurse Practitioner Family
DX: K21.9 Gastro-esophageal reflux disease without esophagitis (principal)
CPT/HCPCS: 74240; 74246

== ENCOUNTER → 2025-04-28 08:44 | Outpatient (BNV) | payer MEDICARE, MEDICAID, SELFPAY | PROVIDERS: PCP Internal Medicine; Visit Provider Radiology Diagnostic Radiology | DX: K21.9 Gastro-esophageal reflux disease without esophagitis (principal) | CPT/HCPCS: 74246 ==